=== PATIENT | female | born 1930 | race Caucasian/White ===

== ENCOUNTER 2018-03-08 11:23 | Inpatient (IN) | payer MEDICARE ==
--- NOTE | 2018-03-08 12:07 | RAD ---
CHEST 1 VIEW: HISTORY: Productive cough for 4 days. COMPARISON: 07/30/2016. FINDINGS: Left hemidiaphragm elevation. Left ICD. Mild stable increased linear and interstitial markings bila terally, evidence for chronic change, but no confluent lobar pneumonia. IMPRESSION: Stable left implantable cardioverter defibrillator and left hemidiaphragm elevation and minimal incre ased markings bilaterally. No evidence for pneumonia. POS: [facility]
[2018-03-08 12:18] LABS: #Eosinphils 0.5 thou/uL (0.0-0.7); #Lymphocytes 0.8 thou/uL (1.20-3.40); #Monocytes 0.7 thou/uL (0.11-0.59); #Neutrophils 5.8 thou/uL (1.40-6.50); %Basophils 0.3 % (0.0-1.0); %Eosinophils 6.4 % (0.0-10.0); %Lymphocytes 9.6 % (21.0-51.0); %Monocytes 9.5 % (0.0-10.0); %Neutrophils 74.1 % (42.0-75.0); Hemoglobin 13.7 g/dL (12.0-16.0); Mean Corpuscular HGB CONC 30.6 g/dL (32.0-36.0); Mean Corpuscular Hemoglobin 29.5 pg (27.0-31.0); Mean Corpuscular Volume 96.4 fL (78.0-98.0); Mean Platelet Volume 9.4 fL (7.4-10.4); Platelet Count 171 thou/uL (130-400); RBC Distribution Width 12.9 % (11.5-14.5); Red Blood Cell (RBC) Count 4.65 mill/uL (4.20-5.40); White Blood Cell (WBC) Count 7.8 thou/uL (4.8-10.8)
[2018-03-08] MEDS ORDERED: Magnesium 2 GM/50 ML BAG (IN WATER) ONE (12:26)
[2018-03-08 12:40] LABS: ALT (SGPT) 12 U/L (8-55); AST (SGOT) 23 U/L (5-34); Albumin 4.1 g/dL (3.4-4.8); Alkaline Phosphatase 109 U/L (40-150); Anion Gap 17 mmol/L (10-20); BUN (Urea Nitrogen) 21 mg/dL (9.8-20.1); Bilirubin, Total 0.8 mg/dL (0.2-1.2); Calc. Creatinine Clearance 0 mL/min (70-130); Calcium 9.6 mg/dL (7.8-10.44); Carbon Dioxide 26 mmol/L (23-31); Chloride 100 mmol/L (98-107); Estimated GFR-MDRD 59; Globulin 3.1 g/dL (2.4-3.5); Glucose 120 mg/dL (83-110); Potassium 4.2 mmol/L (3.5-5.1); Protein, Total 7.2 g/dL (6.0-8.3); Sodium 139 mmol/L (136-145)
[2018-03-08] MEDS ORDERED: Cefepime 2 GM VIAL ONE (13:36)
[2018-03-08] MEDS ORDERED: Loperamide HCl 2 MG CAP PO PRN (13:59)
[2018-03-08] MEDS ORDERED: Cepastat Lozenges 1 LOZ PO PRN (13:59)
[2018-03-08] MEDS ORDERED: Bisacodyl 5 MG TAB PO PRN (13:59)
[2018-03-08] MEDS ORDERED: Artificial Tears 18 DROP/0.9 ML EA EYE PRN (13:59)
[2018-03-08] MEDS ORDERED: Loratadine 10 MG TAB PO PRN (13:59)
[2018-03-08] MEDS ORDERED: Diabetic Tussin 200 MG/10 ML UDCUP PO PRN (13:59)
[2018-03-08] MEDS ORDERED: Eucerin (Mineral Oil/Petrolatum,White) 30 gm Jar TOP PRN (13:59)
[2018-03-08] MEDS ORDERED: hydrALAZINE 20 MG/ML VIAL SLOW IVP PRN (13:59)
[2018-03-08] MEDS ORDERED: Calcium Carbonate 500 MG ChewTAB PO PRN (13:59)
[2018-03-08] MEDS ORDERED: Acetaminophen 325 MG TAB PO PRN (13:59)
[2018-03-08] MEDS ORDERED: Senokot S 8.6-50 MG TAB PO PRN (13:59)
[2018-03-08] MEDS ORDERED: Sodium Chloride 0.65% Nasal 44 ML BOT EA NARE PRN (13:59)
[2018-03-08] MEDS ORDERED: Ondansetron ODT 4 MG TAB PO PRN (13:59)
[2018-03-08] MEDS ORDERED: Bisacodyl 10 MG SUPP PR PRN (13:59)
[2018-03-08] MEDS ORDERED: Ondansetron PF 4 MG/2 ML Vial IVP PRN (13:59)
--- NOTE | 2018-03-08 14:52 | HP ---
PRIMARY CARE PHYSICIAN: Dr. Amaya. REASON FOR ADMISSION: Acute respiratory failure with hypoxia, acute bronchitis, acute encephalopathy. HISTORY OF PRESENT ILLNESS: An 87-year-old female who lives at [facility]. She has pretty much underlying history of Alzheimer dementia as well as atrial fibrillation, hypertension. From [facility], she was sent to ER because of increasing shortness of breath. Recently, the patient was prescribed Medrol tablet as well as azithromycin was prescribed there, but without any improvement. She was in respiratory distress. She was hypoxic at [facility]. The patient has increasing shortness of breath for last four days. Paramedics gave her Solu-Medrol 125 mg, five times DuoNeb. Magnesium sulfate was tried in the emergency room, despite that patient is actively wheezing. She is incoherent, unable to provide any history. She has DNR status at [facility] and her medical power of ranger aide Quin Oro. I spoke with her on phone at [phone] and confirmed DNR status. At this point, we are admitting this patient for acute respiratory failure, bronchitis, and encephalopathy. REVIEW OF SYSTEMS: All review of system tried to review with the patient but unable to review at this point because the patient is not in position to provide any history because of dementia as well as encephalopathy. PAST MEDICAL HISTORY: Atrial fibrillation with pacemaker, dyslipidemia, hypertension, Alzheimer dementia, and osteoarthritis. PAST SURGICAL HISTORY: Pacemaker. PAST PSYCHIATRIC HISTORY: Alzheimer type of dementia. SOCIAL HISTORY: The patient is living at [facility]. No history of tobacco, alcohol, or illicit drug abuse. FAMILY HISTORY: Unable to verify any family history from the patient. CURRENT HOME MEDICATIONS: 1. Calcium with vitamin D 1 tablet daily. 2. DuoNeb 4 hourly. 3. Lasix 40 mg daily. 4. Lipitor 10 mg p.o. nightly. 5. Magnesium sulfate 400 mg daily. 6. Medrol 2 mg twice daily. 7. Toprol 25 mg twice daily. 8. Potassium chloride 20 mEq p.o. daily. 9. Azithromycin 250 mg p.o. daily. 10. Xanax as-needed basis. EMERGENCY ROOM COURSE: The patient has received gentamicin, cefepime, vancomycin, DuoNeb therapy, magnesium sulfate 2 g. ALLERGY: No known drug allergy PHYSICAL EXAMINATION: VITAL SIGNS: At this point, blood pressure on admission 102/83, pulse 117, respiratory rate 24, saturation 95% on 3 L oxygen. Weight 84.8 kg. On admission, oxygen saturation was 84% on room air. GENERAL: The patient is completely encephalopathic, actively wheezing, tachycardic. HEENT: Head; normocephalic, atraumatic. Eyes; pupils are round, reactive to light. ENT; oropharynx within normal limits. NECK: Supple. LUNGS: Bilateral wheezing heard. No rales. CARDIAC: S1 and S2 regular. Tachycardia. ABDOMEN: Soft and benign. EXTREMITIES: No edema. NEUROLOGIC: Unable to assess at this point because of her confused status. SKIN: No skin rash. HEMATOLOGICAL: No lymphadenopathy. SIGNIFICANT LABORATORY DATA: EKG showing atrial fibrillation with RVR initially. Chest x-ray, no acute cardiopulmonary process. CBC; WBC 7.8, hemoglobin 13.7, platelet 171. BMP; sodium 139, potassium 4.2, chloride 100, carbon dioxide 26, BUN 21, creatinine 0.91, glucose 120, calcium 9.6. LFT; AST 23, ALT 12, alkaline phosphatase 109, albumin 4.1. Troponin I 0.013. BNP 109.8. ASSESSMENT: 1. Acute respiratory failure with hypoxia. 2. Acute bronchitis/underlying questionable history of chronic obstructive lung disease. 3. History of cardiomyopathy. 4. Hypertension. 5. Dyslipidemia. 6. Alzheimer dementia. 7. Anxiety and depression. 8. Encephalopathy currently with acute on chronic cognitive dysfunction. 9. Chronic atrial fibrillation. 10. Acute bronchitis, likely. PLAN: The patient will be admitted to medical floor. DuoNeb therapy every 4 hourly, Solu-Medrol 40 mg IV q.6 hourly, empiric antibiotic therapy with Rocephin 1 g q.24 hours, levofloxacin 500 mg IV daily, Pulmicort nebulization twice daily, Mucinex 600 mg twice daily. Oxygen to keep saturation above 92%. Watch for any aspiration. Speech evaluation if needed. Code status confirmed with the patient's medical power of ranger aide and DNR status. We will resume [facility] medication and the patient is able to take oral intake. DVT prophylaxis, Lovenox 40 mg subcu daily. GI prophylaxis, Pepcid 20 mg b.i.d. DISPOSITION PLAN: Based on clinical course, we are expecting the patient's stay in hospital more than 2 midnights. Job ID: [id number] [email or web address]
[2018-03-08 18:02] VITALS: BMI 29.5
[2018-03-08] MEDS: Budesonide 0.5 MG/2 ML NEB INH SCH (18:28)
[2018-03-08] MEDS: cefTRIAXone\\ROCEPHIN 1 GM in Sodium Chloride 0.9% 100 ML IVPB SCH (18:57)
[2018-03-08] MEDS: guaiFENesin ER 600 MG TAB PO SCH (20:44)
[2018-03-08] MEDS: Famotidine 20 MG TAB PO SCH (20:44)
[2018-03-08] MEDS: Atorvastatin Calcium 10 MG TAB PO SCH (20:44)
[2018-03-08] MEDS: ALPRAZolam 0.5 MG TAB PO PRN (22:05)
[2018-03-09 04:51] LABS: #Lymphocytes 0.4 thou/uL (1.20-3.40); #Neutrophils 3.8 thou/uL (1.40-6.50); %Eosinophils 0.3 % (0.0-10.0); %Lymphocytes 8.8 % (21.0-51.0); %Neutrophils 89.9 % (42.0-75.0); Hemoglobin 12.3 g/dL (12.0-16.0); Mean Corpuscular HGB CONC 32.5 g/dL (32.0-36.0); Mean Corpuscular Volume 95.3 fL (78.0-98.0); Mean Platelet Volume 9.8 fL (7.4-10.4); Platelet Count 141 thou/uL (130-400); RBC Distribution Width 12.7 % (11.5-14.5); Red Blood Cell (RBC) Count 3.97 mill/uL (4.20-5.40); White Blood Cell (WBC) Count 4.2 thou/uL (4.8-10.8)
[2018-03-09 05:14] LABS: Anion Gap 16 mmol/L (10-20); BUN (Urea Nitrogen) 21 mg/dL (9.8-20.1); Calc. Creatinine Clearance 67 mL/min (70-130); Calcium 8.9 mg/dL (7.8-10.44); Carbon Dioxide 23 mmol/L (23-31); Chloride 102 mmol/L (98-107); Estimated GFR-MDRD 68; Glucose 139 mg/dL (83-110); Potassium 4.2 mmol/L (3.5-5.1); Sodium 137 mmol/L (136-145)
[2018-03-09] MEDS: Budesonide 0.5 MG/2 ML NEB INH SCH ×3 (06:19→18:59)
[2018-03-09] MEDS ORDERED: Atorvastatin Calcium 10 MG TAB PO SCH (09:00)
[2018-03-09] MEDS ORDERED: Prevnar 13-Val Conj/PF 0.5 ML SYRINGE IM ONE (09:00)
[2018-03-09] MEDS: guaiFENesin ER 600 MG TAB PO SCH ×2 (10:20→20:56)
[2018-03-09] MEDS: Aspirin Chewable 81 MG TAB PO SCH (10:20)
[2018-03-09] MEDS: Calcium Carbonate + Vit D 1 TAB PO SCH (10:20)
[2018-03-09] MEDS: Furosemide 40 MG TAB PO SCH (10:20)
[2018-03-09] MEDS: Enoxaparin Sodium 40 MG/0.4 ML SYRINGE SC SCH (10:22)
--- NOTE | 2018-03-09 10:48 | PDOC.PN ---
- Subjective Encounter Start Date: 03/09/18 Encounter Start Time: 07:20 Patient seen and examined. pt has less wheezing. No overnight events - Objective Resuscitation Status - Order Detail: 03/08/18 13:50 Resuscitation Status Routine Resuscitation Status: DNAR: NO Resuscitation Discussed with: coonfirmed with medical POA OSCAR Reviewed: Yes Vital Signs & Weight: Vital Signs (12 hours) Temp Pulse Resp BP BP Pulse Ox 03/09/18 09:57 98 18 97 03/09/18 07:36 97.5 F L 108 H 20 129/55 L 98 03/09/18 06:19 101 H 18 96 03/09/18 04:00 100 03/09/18 03:46 98.1 F 97 19 143/73 H 100 03/09/18 02:09 106 H 20 96 03/09/18 00:00 20 99 Weight Weight 186 lb 8 oz I&O: 03/08/18 03/09/18 03/10/18 06:59 06:59 06:59 Intake Total 351 Output Total 450 Balance -99 Result Diagrams: 03/09/18 04:16 03/09/18 04:16 EKG Reviewed by me: Yes Phys Exam - Physical Examination Constitutional: NAD HEENT: PERRLA, moist MMs, sclera anicteric Neck: no JVD, supple Respiratory: no rales, wheezing present Cardiovascular: RRR, no significant murmur, no rub Gastrointestinal: soft, non-tender, no distention Musculoskeletal: no edema, pulses present Neurological: non-focal Lymphatic: no nodes Psychiatric: normal affect Skin: no rash, normal turgor Dx/Plan (1) Acute bronchitis Code(s): J20.9 - ACUTE BRONCHITIS, UNSPECIFIED Status: Acute (2) Acute respiratory failure with hypoxia Code(s): J96.01 - ACUTE RESPIRATORY FAILURE WITH HYPOXIA Status: Acute (3) Alzheimer's dementia Code(s): G30.9 - ALZHEIMER'S DISEASE, UNSPECIFIED; F02.80 - DEMENTIA IN OTH DISEASES CLASSD ELSWHR W/O BEHAVRL DISTURB Status: Chronic (4) Anxiety and depression Code(s): F41.9 - ANXIETY DISORDER, UNSPECIFIED; F32.9 - MAJOR DEPRESSIVE DISORDER, SINGLE EPISODE, UNSPECIFIED Status: Chronic (5) Dyslipidemia Code(s): E78.5 - HYPERLIPIDEMIA, UNSPECIFIED Status: Chronic (6) Hypertension Code(s): I10 - ESSENTIAL (PRIMARY) HYPERTENSION Status: Chronic - Plan cont current plan of care, continue antibiotics, respiratory therapy * continue rocephin and levaquin * continue solumedrol * pt has some improvement * she is not ready for discharge * will dc tele * transfer to medical * medication reviewed as below * symptomatic treatment. Review of Systems - Review of Systems Other: not reliable due to advanced dementia - Medications/Allergies Allergies/Adverse Reactions: Allergies Allergy/AdvReac Type Severity Reaction Status Date / Time Penicillins Allergy Verified 03/08/18 13:34 Medications: Current Medications Acetaminophen (Tylenol) 650 mg PO Q4H PRN PRN Reason: Headache/Fever/Mild Pain (1-3) Albuterol/Ipratropium (Duoneb) 3 ml NEB [id number] [facility] Last Admin: 03/09/18 09:57 Dose: 3 ml Albuterol/Ipratropium (Duoneb) 3 ml NEB Q2H PRN PRN Reason: SOB &/or Wheezing Alprazolam (Xanax) 0.5 mg PO DAILY PRN PRN Reason: agitation/anxiety Last Admin: 03/08/18 22:05 Dose: 0.5 mg Artificial Tears (Tears Naturale) 2 drop EA EYE PRN PRN PRN Reason: Dry Eyes Aspirin (Aspirin Chewable) 81 mg PO DAILY [facility] Last Admin: 03/09/18 10:20 Dose: 81 mg Atorvastatin Calcium (Lipitor) 10 mg PO HS [facility] Last Admin: 03/08/18 20:44 Dose: 10 mg Bisacodyl (Dulcolax) 10 mg [place] DAILYPRN PRN PRN Reason: Constipation Bisacodyl (Dulcolax) 10 mg PO DAILYPRN PRN PRN Reason: Constipation Budesonide (Pulmicort Neb Solution) 0.5 mg INH BID-RT [facility] Last Admin: 03/09/18 06:19 Dose: 0.5 mg Calcium Carbonate (Tums) 1,000 mg PO Q4H PRN PRN Reason: Heartburn or Indigestion Calcium/Vitamin D (Caltrate 600 + Vit D) 1 tab PO DAILY [facility] Last Admin: 03/09/18 10:20 Dose: 1 tab Enoxaparin Sodium (Lovenox) 40 mg SC 0900 [facility] Last Admin: 03/09/18 10:22 Dose: 40 mg Famotidine (Pepcid) 20 mg PO 2100 [facility] Last Admin: 03/08/18 20:44 Dose: 20 mg Furosemide (Lasix) 40 mg PO DAILY [facility] Last Admin: 03/09/18 10:20 Dose: 40 mg Guaifenesin (Mucinex) 600 mg PO Q12HR [facility] Last Admin: 03/09/18 10:20 Dose: 600 mg Guaifenesin (Robitussin Sf) 200 mg PO Q4H PRN PRN Reason: Cough Hydralazine HCl (Apresoline) 10 mg SLOW IVP Q4H PRN PRN Reason: SBP > 180 and HR < 70 Ceftriaxone Sodium 1 gm/ (Sodium Chloride) 100 mls @ 200 mls/hr IVPB 1500 [facility] Last Admin: 03/08/18 18:57 Dose: 100 mls Levofloxacin 500 mg/ Device 100 mls @ 100 mls/hr IVPB 2100 [facility] Last Admin: 03/08/18 20:44 Dose: 100 mls Loperamide HCl (Imodium) 2 mg PO PRN PRN PRN Reason: Diarrhea/Loose Stools Loratadine (Claritin) 10 mg PO DAILYPRN PRN PRN Reason: Sinus Symptoms Methylprednisolone Sodium Succinate (Solu-Medrol) 40 mg IVP Q6HR [facility] Last Admin: 03/09/18 01:18 Dose: 40 mg Mineral Oil/White Petrolatum (Eucerin Cream) 0 gm TOP BIDPRN PRN PRN Reason: Dry Skin Ondansetron HCl (Zofran Odt) 4 mg PO Q6H PRN PRN Reason: Nausea/Vomiting Ondansetron HCl (Zofran) 4 mg IVP Q6H PRN PRN Reason: Nausea/Vomiting Senna/Docusate Sodium (Senokot S) 2 tab PO BID PRN PRN Reason: Constipation Sodium Chloride ([place] Nasal [place] 0.65%) 0 ml EA NARE QIDPRN PRN PRN Reason: Nasal Congestion Sodium Chloride (Flush - Normal Saline) 10 ml IVF Q12HR [facility] Last Admin: 03/08/18 20:45 Dose: 10 ml Sodium Chloride (Flush - Normal Saline) 10 ml IVF PRN PRN PRN Reason: Saline Flush Last Admin: 01/31/19 01:21 Dose: 10 ml Throat Lozenges (Cepastat Lozenges) 1 ruel PO Q2H PRN PRN Reason: Sore Throat
[2018-03-09] MEDS: cefTRIAXone\\ROCEPHIN 1 GM in Sodium Chloride 0.9% 100 ML IVPB SCH (15:54)
[2018-03-09] MEDS: Famotidine 20 MG TAB PO SCH (20:55)
[2018-03-09] MEDS: ALPRAZolam 0.5 MG TAB PO PRN (20:56)
[2018-03-09] MEDS: Atorvastatin Calcium 10 MG TAB PO SCH (20:56)
[2018-03-10] MEDS: Budesonide 0.5 MG/2 ML NEB INH SCH ×2 (08:08→18:52)
[2018-03-10] MEDS: Furosemide 40 MG TAB PO SCH (09:52)
[2018-03-10] MEDS: guaiFENesin ER 600 MG TAB PO SCH ×2 (09:52→20:42)
[2018-03-10] MEDS: Calcium Carbonate + Vit D 1 TAB PO SCH (09:52)
[2018-03-10] MEDS: Enoxaparin Sodium 40 MG/0.4 ML SYRINGE SC SCH (09:52)
[2018-03-10] MEDS: Aspirin Chewable 81 MG TAB PO SCH (09:55)
--- NOTE | 2018-03-10 11:03 | PDOC.PN ---
- Subjective Encounter Start Date: 03/10/18 Encounter Start Time: 08:30 Patient seen and examined. still wheezing No overnight events - Objective Resuscitation Status - Order Detail: 03/08/18 13:50 Resuscitation Status Routine Resuscitation Status: DNAR: NO Resuscitation Discussed with: coonfirmed with medical PERRI MOORE Reviewed: Yes Vital Signs & Weight: Vital Signs (12 hours) Temp Pulse Resp BP Pulse Ox 03/10/18 08:09 94 L 03/10/18 08:08 95 20 94 L 03/10/18 08:06 95 20 94 L 03/10/18 08:00 99.1 F 114 H 18 127/74 93 L 03/10/18 04:00 98.2 F 104 H 20 131/81 95 03/10/18 02:22 116 H 20 95 03/10/18 01:45 95 03/10/18 01:38 97.8 F 90 16 149/98 H 100 03/10/18 00:00 98.2 F 108 H 20 120/80 95 Weight Weight 186 lb 8 oz I&O: 03/09/18 03/10/18 03/11/18 06:59 06:59 06:59 Intake Total 351 650 Output Total 450 Balance -99 650 Result Diagrams: 03/09/18 04:16 03/09/18 04:16 Phys Exam - Physical Examination Constitutional: NAD HEENT: PERRLA, sclera anicteric Neck: no JVD, supple Respiratory: wheezing present Cardiovascular: RRR, no significant murmur, no rub Gastrointestinal: soft, non-tender, no distention, positive bowel sounds Musculoskeletal: no edema, pulses present Neurological: non-focal Lymphatic: no nodes Psychiatric: normal affect Skin: no rash, normal turgor Dx/Plan (1) Acute bronchitis Code(s): J20.9 - ACUTE BRONCHITIS, UNSPECIFIED Status: Acute (2) Acute respiratory failure with hypoxia Code(s): J96.01 - ACUTE RESPIRATORY FAILURE WITH HYPOXIA Status: Acute (3) Alzheimer's dementia Code(s): G30.9 - ALZHEIMER'S DISEASE, UNSPECIFIED; F02.80 - DEMENTIA IN OTH DISEASES CLASSD ELSWHR W/O BEHAVRL DISTURB Status: Chronic (4) Anxiety and depression Code(s): F41.9 - ANXIETY DISORDER, UNSPECIFIED; F32.9 - MAJOR DEPRESSIVE DISORDER, SINGLE EPISODE, UNSPECIFIED Status: Chronic (5) Dyslipidemia Code(s): E78.5 - HYPERLIPIDEMIA, UNSPECIFIED Status: Chronic (6) Hypertension Code(s): I10 - ESSENTIAL (PRIMARY) HYPERTENSION Status: Chronic - Plan cont current plan of care, continue antibiotics, respiratory therapy * medication reviewed as below * symptomatic treatment * continue current treatment * not ready for discharge * will re evaluate tomorrow. Review of Systems - Review of Systems Other: not reliable with pt due to dementia - Medications/Allergies Allergies/Adverse Reactions: Allergies Allergy/AdvReac Type Severity Reaction Status Date / Time Penicillins Allergy Verified 03/08/18 13:34 Medications: Current Medications Acetaminophen (Tylenol) 650 mg PO Q4H PRN PRN Reason: Headache/Fever/Mild Pain (1-3) Albuterol/Ipratropium (Duoneb) 3 ml NEB [id number] [facility] Last Admin: 03/10/18 08:06 Dose: 3 ml Albuterol/Ipratropium (Duoneb) 3 ml NEB Q2H PRN PRN Reason: SOB &/or Wheezing Alprazolam (Xanax) 0.5 mg PO DAILY PRN PRN Reason: agitation/anxiety Last Admin: 03/09/18 20:56 Dose: 0.5 mg Artificial Tears (Tears Naturale) 2 drop EA EYE PRN PRN PRN Reason: Dry Eyes Aspirin (Aspirin Chewable) 81 mg PO DAILY [facility] Last Admin: 03/10/18 09:55 Dose: 81 mg Atorvastatin Calcium (Lipitor) 10 mg PO HS [facility] Last Admin: 03/09/18 20:56 Dose: 10 mg Bisacodyl (Dulcolax) 10 mg [place] DAILYPRN PRN PRN Reason: Constipation Bisacodyl (Dulcolax) 10 mg PO DAILYPRN PRN PRN Reason: Constipation Budesonide (Pulmicort Neb Solution) 0.5 mg INH BID-RT [facility] Last Admin: 03/10/18 08:08 Dose: 0.5 mg Calcium Carbonate (Tums) 1,000 mg PO Q4H PRN PRN Reason: Heartburn or Indigestion Calcium/Vitamin D (Caltrate 600 + Vit D) 1 tab PO DAILY [facility] Last Admin: 03/10/18 09:52 Dose: 1 tab Enoxaparin Sodium (Lovenox) 40 mg SC 0900 [facility] Last Admin: 03/10/18 09:52 Dose: 40 mg Famotidine (Pepcid) 20 mg PO 2100 [facility] Last Admin: 03/09/18 20:55 Dose: 20 mg Furosemide (Lasix) 40 mg PO DAILY [facility] Last Admin: 03/10/18 09:52 Dose: 40 mg Guaifenesin (Mucinex) 600 mg PO Q12HR [facility] Last Admin: 03/10/18 09:52 Dose: 600 mg Guaifenesin (Robitussin Sf) 200 mg PO Q4H PRN PRN Reason: Cough Hydralazine HCl (Apresoline) 10 mg SLOW IVP Q4H PRN PRN Reason: SBP > 180 and HR < 70 Ceftriaxone Sodium 1 gm/ (Sodium Chloride) 100 mls @ 200 mls/hr IVPB 1500 [facility] Last Admin: 03/09/18 15:54 Dose: 100 mls Levofloxacin 500 mg/ Device 100 mls @ 100 mls/hr IVPB 2100 [facility] Last Admin: 03/09/18 20:56 Dose: 100 mls Loperamide HCl (Imodium) 2 mg PO PRN PRN PRN Reason: Diarrhea/Loose Stools Loratadine (Claritin) 10 mg PO DAILYPRN PRN PRN Reason: Sinus Symptoms Methylprednisolone Sodium Succinate (Solu-Medrol) 40 mg IVP Q6HR [facility] Last Admin: 03/10/18 05:26 Dose: 40 mg Mineral Oil/White Petrolatum (Eucerin Cream) 0 gm TOP BIDPRN PRN PRN Reason: Dry Skin Ondansetron HCl (Zofran Odt) 4 mg PO Q6H PRN PRN Reason: Nausea/Vomiting Ondansetron HCl (Zofran) 4 mg IVP Q6H PRN PRN Reason: Nausea/Vomiting Senna/Docusate Sodium (Senokot S) 2 tab PO BID PRN PRN Reason: Constipation Sodium Chloride ([place] Nasal [place] 0.65%) 0 ml EA NARE QIDPRN PRN PRN Reason: Nasal Congestion Sodium Chloride (Flush - Normal Saline) 10 ml IVF Q12HR [facility] Last Admin: 03/10/18 09:53 Dose: 10 ml Sodium Chloride (Flush - Normal Saline) 10 ml IVF PRN PRN PRN Reason: Saline Flush Last Admin: 03/09/18 01:21 Dose: 10 ml Throat Lozenges (Cepastat Lozenges) 1 ruel PO Q2H PRN PRN Reason: Sore Throat
[2018-03-10] MEDS: cefTRIAXone\\ROCEPHIN 1 GM in Sodium Chloride 0.9% 100 ML IVPB SCH (14:34)
[2018-03-10] MEDS ORDERED: Ziprasidone 20 MG VIAL IM SCH (16:00)
[2018-03-10] MEDS ORDERED: Sterile Water 10 ML ONE (16:03)
[2018-03-10] MEDS: Atorvastatin Calcium 10 MG TAB PO SCH (20:41)
[2018-03-10] MEDS: Famotidine 20 MG TAB PO SCH (20:41)
[2018-03-10] MEDS: ALPRAZolam 0.5 MG TAB PO PRN (20:41)
[2018-03-11] MEDS: Budesonide 0.5 MG/2 ML NEB INH SCH ×2 (08:01→19:01)
[2018-03-11] MEDS: Furosemide 40 MG TAB PO SCH (08:22)
[2018-03-11] MEDS: guaiFENesin ER 600 MG TAB PO SCH ×2 (08:22→20:25)
[2018-03-11] MEDS: Calcium Carbonate + Vit D 1 TAB PO SCH (08:22)
[2018-03-11] MEDS: Enoxaparin Sodium 40 MG/0.4 ML SYRINGE SC SCH (08:23)
[2018-03-11] MEDS: Aspirin Chewable 81 MG TAB PO SCH (08:23)
[2018-03-11] MEDS: ALPRAZolam 0.5 MG TAB PO PRN (08:27)
--- NOTE | 2018-03-11 11:56 | PDOC.PN ---
- Subjective Encounter Start Date: 03/11/18 Encounter Start Time: 09:35 Patient seen and examined. No new complaints. No overnight events - Objective Resuscitation Status - Order Detail: 03/08/18 13:50 Resuscitation Status Routine Resuscitation Status: DNAR: NO Resuscitation Discussed with: coonfirmed with medical PERRI MOORE Reviewed: Yes Vital Signs & Weight: Vital Signs (12 hours) Temp Pulse Resp BP Pulse Ox 03/11/18 08:36 98.1 F 106 H 20 120/76 92 L 03/11/18 08:01 86 18 94 L 03/11/18 04:00 97.7 F 86 18 113/60 94 L 03/11/18 01:52 96 18 94 L Weight Weight 186 lb 8 oz I&O: 03/10/18 03/11/18 03/12/18 06:59 06:59 06:59 Intake Total 650 400 Balance 650 400 Result Diagrams: 03/09/18 04:16 03/09/18 04:16 Phys Exam - Physical Examination Constitutional: NAD HEENT: PERRLA, moist MMs, sclera anicteric Neck: no JVD, supple Respiratory: no wheezing, no rales, no rhonchi Cardiovascular: RRR, no significant murmur, no rub Gastrointestinal: soft, non-tender, no distention, positive bowel sounds Musculoskeletal: no edema, pulses present Neurological: non-focal Lymphatic: no nodes Psychiatric: normal affect Skin: no rash, normal turgor Dx/Plan (1) Acute bronchitis Code(s): J20.9 - ACUTE BRONCHITIS, UNSPECIFIED Status: Acute (2) Acute respiratory failure with hypoxia Code(s): J96.01 - ACUTE RESPIRATORY FAILURE WITH HYPOXIA Status: Acute (3) Alzheimer's dementia Code(s): G30.9 - ALZHEIMER'S DISEASE, UNSPECIFIED; F02.80 - DEMENTIA IN OTH DISEASES CLASSD ELSWHR W/O BEHAVRL DISTURB Status: Chronic (4) Anxiety and depression Code(s): F41.9 - ANXIETY DISORDER, UNSPECIFIED; F32.9 - MAJOR DEPRESSIVE DISORDER, SINGLE EPISODE, UNSPECIFIED Status: Chronic (5) Dyslipidemia Code(s): E78.5 - HYPERLIPIDEMIA, UNSPECIFIED Status: Chronic (6) Hypertension Code(s): I10 - ESSENTIAL (PRIMARY) HYPERTENSION Status: Chronic - Plan cont current plan of care, continue antibiotics, respiratory therapy * medication reviewed as below * symptomatic treatment * continue current treatment * she should be ready for discharge tomorrow. Review of Systems - Review of Systems Other: not reliable due to dementia - Medications/Allergies Allergies/Adverse Reactions: Allergies Allergy/AdvReac Type Severity Reaction Status Date / Time Penicillins Allergy Verified 03/08/18 13:34 Medications: Current Medications Acetaminophen (Tylenol) 650 mg PO Q4H PRN PRN Reason: Headache/Fever/Mild Pain (1-3) Last Admin: 03/10/18 20:42 Dose: 650 mg Albuterol/Ipratropium (Duoneb) 3 ml NEB [id number] [facility] Last Admin: 03/11/18 08:03 Dose: 3 ml Albuterol/Ipratropium (Duoneb) 3 ml NEB Q2H PRN PRN Reason: SOB &/or Wheezing Alprazolam (Xanax) 0.5 mg PO DAILY PRN PRN Reason: agitation/anxiety Last Admin: 03/11/18 08:27 Dose: 0.5 mg Artificial Tears (Tears Naturale) 2 drop EA EYE PRN PRN PRN Reason: Dry Eyes Aspirin (Aspirin Chewable) 81 mg PO DAILY [facility] Last Admin: 03/11/18 08:23 Dose: 81 mg Atorvastatin Calcium (Lipitor) 10 mg PO HS [facility] Last Admin: 03/10/18 20:41 Dose: 10 mg Bisacodyl (Dulcolax) 10 mg [place] DAILYPRN PRN PRN Reason: Constipation Bisacodyl (Dulcolax) 10 mg PO DAILYPRN PRN PRN Reason: Constipation Budesonide (Pulmicort Neb Solution) 0.5 mg INH BID-RT [facility] Last Admin: 03/11/18 08:01 Dose: 0.5 mg Calcium Carbonate (Tums) 1,000 mg PO Q4H PRN PRN Reason: Heartburn or Indigestion Calcium/Vitamin D (Caltrate 600 + Vit D) 1 tab PO DAILY [facility] Last Admin: 03/11/18 08:22 Dose: 1 tab Enoxaparin Sodium (Lovenox) 40 mg SC 0900 [facility] Last Admin: 03/11/18 08:23 Dose: 40 mg Famotidine (Pepcid) 20 mg PO 2100 [facility] Last Admin: 03/10/18 20:41 Dose: 20 mg Furosemide (Lasix) 40 mg PO DAILY [facility] Last Admin: 03/11/18 08:22 Dose: 40 mg Guaifenesin (Mucinex) 600 mg PO Q12HR [facility] Last Admin: 03/11/18 08:22 Dose: 600 mg Guaifenesin (Robitussin Sf) 200 mg PO Q4H PRN PRN Reason: Cough Hydralazine HCl (Apresoline) 10 mg SLOW IVP Q4H PRN PRN Reason: SBP > 180 and HR < 70 Ceftriaxone Sodium 1 gm/ (Sodium Chloride) 100 mls @ 200 mls/hr IVPB 1500 [facility] Last Admin: 03/10/18 14:34 Dose: 100 mls Levofloxacin 500 mg/ Device 100 mls @ 100 mls/hr IVPB 2100 [facility] Last Admin: 03/10/18 20:42 Dose: 100 mls Loperamide HCl (Imodium) 2 mg PO PRN PRN PRN Reason: Diarrhea/Loose Stools Loratadine (Claritin) 10 mg PO DAILYPRN PRN PRN Reason: Sinus Symptoms Methylprednisolone Sodium Succinate (Solu-Medrol) 40 mg IVP Q6HR [facility] Last Admin: 03/11/18 05:32 Dose: 40 mg Mineral Oil/White Petrolatum (Eucerin Cream) 0 gm TOP BIDPRN PRN PRN Reason: Dry Skin Ondansetron HCl (Zofran Odt) 4 mg PO Q6H PRN PRN Reason: Nausea/Vomiting Ondansetron HCl (Zofran) 4 mg IVP Q6H PRN PRN Reason: Nausea/Vomiting Senna/Docusate Sodium (Senokot S) 2 tab PO BID PRN PRN Reason: Constipation Sodium Chloride ([place] Nasal [place] 0.65%) 0 ml EA NARE QIDPRN PRN PRN Reason: Nasal Congestion Sodium Chloride (Flush - Normal Saline) 10 ml IVF Q12HR [facility] Last Admin: 03/11/18 08:23 Dose: 10 ml Sodium Chloride (Flush - Normal Saline) 10 ml IVF PRN PRN PRN Reason: Saline Flush Last Admin: 03/09/18 01:21 Dose: 10 ml Throat Lozenges (Cepastat Lozenges) 1 ruel PO Q2H PRN PRN Reason: Sore Throat
[2018-03-11] MEDS: cefTRIAXone\\ROCEPHIN 1 GM in Sodium Chloride 0.9% 100 ML IVPB SCH (14:37)
[2018-03-11] MEDS: Atorvastatin Calcium 10 MG TAB PO SCH (20:25)
[2018-03-11] MEDS: Famotidine 20 MG TAB PO SCH (20:25)
[2018-03-12] MEDS ORDERED: ALPRAZolam 0.25 MG TAB PO SCH (01:00)
[2018-03-12] MEDS: guaiFENesin ER 600 MG TAB PO SCH ×2 (07:39→21:31)
[2018-03-12] MEDS: Enoxaparin Sodium 40 MG/0.4 ML SYRINGE SC SCH (07:39)
[2018-03-12] MEDS: Furosemide 40 MG TAB PO SCH (07:39)
[2018-03-12] MEDS: Calcium Carbonate + Vit D 1 TAB PO SCH (07:39)
[2018-03-12] MEDS: Aspirin Chewable 81 MG TAB PO SCH (07:39)
[2018-03-12] MEDS: Budesonide 0.5 MG/2 ML NEB INH SCH ×2 (07:51→18:24)
--- NOTE | 2018-03-12 11:11 | PDOC.PN ---
- Subjective Encounter Start Date: 03/12/18 Encounter Start Time: 09:25 Patient seen and examined. No new complaints. No overnight events - Objective Resuscitation Status - Order Detail: 03/08/18 13:50 Resuscitation Status Routine Resuscitation Status: DNAR: NO Resuscitation Discussed with: coonfirmed with medical POJose MOORE Reviewed: Yes Vital Signs & Weight: Vital Signs (12 hours) Temp Pulse Resp BP Pulse Ox 03/12/18 07:52 93 L 03/12/18 07:51 101 H 20 93 L 03/12/18 07:49 101 H 20 93 L 03/12/18 07:27 97.7 F 91 20 128/77 92 L 03/12/18 01:43 119 H 20 96 Weight Weight 186 lb 8 oz I&O: 03/11/18 03/12/18 03/13/18 06:59 06:59 06:59 Intake Total 400 150 Balance 400 150 Result Diagrams: 03/09/18 04:16 03/09/18 04:16 Phys Exam - Physical Examination Constitutional: NAD HEENT: PERRLA, moist MMs, sclera anicteric Neck: no JVD, supple Respiratory: wheezing present Cardiovascular: RRR, no significant murmur, no rub Gastrointestinal: soft, non-tender, no distention, positive bowel sounds Musculoskeletal: no edema, pulses present Neurological: non-focal, normal sensation Lymphatic: no nodes Psychiatric: normal affect Skin: no rash, normal turgor Dx/Plan (1) Acute bronchitis Code(s): J20.9 - ACUTE BRONCHITIS, UNSPECIFIED Status: Acute (2) Acute respiratory failure with hypoxia Code(s): J96.01 - ACUTE RESPIRATORY FAILURE WITH HYPOXIA Status: Acute (3) Alzheimer's dementia Code(s): G30.9 - ALZHEIMER'S DISEASE, UNSPECIFIED; F02.80 - DEMENTIA IN OTH DISEASES CLASSD ELSWHR W/O BEHAVRL DISTURB Status: Chronic (4) Anxiety and depression Code(s): F41.9 - ANXIETY DISORDER, UNSPECIFIED; F32.9 - MAJOR DEPRESSIVE DISORDER, SINGLE EPISODE, UNSPECIFIED Status: Chronic (5) Dyslipidemia Code(s): E78.5 - HYPERLIPIDEMIA, UNSPECIFIED Status: Chronic (6) Hypertension Code(s): I10 - ESSENTIAL (PRIMARY) HYPERTENSION Status: Chronic - Plan cont current plan of care, continue antibiotics, respiratory therapy * medication reviewed as below * symptomatic treatment * continue respi therapy as per below. Review of Systems - Review of Systems Other: not reliable due to dementia - Medications/Allergies Allergies/Adverse Reactions: Allergies Allergy/AdvReac Type Severity Reaction Status Date / Time Penicillins Allergy Verified 03/08/18 13:34 Medications: Current Medications Acetaminophen (Tylenol) 650 mg PO Q4H PRN PRN Reason: Headache/Fever/Mild Pain (1-3) Last Admin: 03/10/18 20:42 Dose: 650 mg Albuterol/Ipratropium (Duoneb) 3 ml NEB [id number] [facility] Last Admin: 03/12/18 07:49 Dose: 3 ml Albuterol/Ipratropium (Duoneb) 3 ml NEB Q2H PRN PRN Reason: SOB &/or Wheezing Alprazolam (Xanax) 0.5 mg PO DAILY PRN PRN Reason: agitation/anxiety Last Admin: 03/11/18 08:27 Dose: 0.5 mg Artificial Tears (Tears Naturale) 2 drop EA EYE PRN PRN PRN Reason: Dry Eyes Aspirin (Aspirin Chewable) 81 mg PO DAILY [facility] Last Admin: 03/12/18 07:39 Dose: 81 mg Atorvastatin Calcium (Lipitor) 10 mg PO HS [facility] Last Admin: 03/11/18 20:25 Dose: 10 mg Bisacodyl (Dulcolax) 10 mg MT DAILYPRN PRN PRN Reason: Constipation Bisacodyl (Dulcolax) 10 mg PO DAILYPRN PRN PRN Reason: Constipation Budesonide (Pulmicort Neb Solution) 0.5 mg INH BID-RT [facility] Last Admin: 03/12/18 07:51 Dose: 0.5 mg Calcium Carbonate (Tums) 1,000 mg PO Q4H PRN PRN Reason: Heartburn or Indigestion Calcium/Vitamin D (Caltrate 600 + Vit D) 1 tab PO DAILY [facility] Last Admin: 03/12/18 07:39 Dose: 1 tab Enoxaparin Sodium (Lovenox) 40 mg SC 0900 [facility] Last Admin: 03/12/18 07:39 Dose: 40 mg Famotidine (Pepcid) 20 mg PO 2100 [facility] Last Admin: 03/11/18 20:25 Dose: 20 mg Furosemide (Lasix) 40 mg PO DAILY [facility] Last Admin: 03/12/18 07:39 Dose: 40 mg Guaifenesin (Mucinex) 600 mg PO Q12HR [facility] Last Admin: 03/12/18 07:39 Dose: 600 mg Guaifenesin (Robitussin Sf) 200 mg PO Q4H PRN PRN Reason: Cough Hydralazine HCl (Apresoline) 10 mg SLOW IVP Q4H PRN PRN Reason: SBP > 180 and HR < 70 Ceftriaxone Sodium 1 gm/ (Sodium Chloride) 100 mls @ 200 mls/hr IVPB 1500 [facility] Last Admin: 03/11/18 14:37 Dose: 100 mls Levofloxacin (Levaquin) 500 mg PO 2100 [facility] Last Admin: 03/11/18 20:25 Dose: 500 mg Loperamide HCl (Imodium) 2 mg PO PRN PRN PRN Reason: Diarrhea/Loose Stools Loratadine (Claritin) 10 mg PO DAILYPRN PRN PRN Reason: Sinus Symptoms Methylprednisolone Sodium Succinate (Solu-Medrol) 40 mg IVP Q6HR [facility] Last Admin: 03/12/18 06:53 Dose: 40 mg Mineral Oil/White Petrolatum (Eucerin Cream) 0 gm TOP BIDPRN PRN PRN Reason: Dry Skin Ondansetron HCl (Zofran Odt) 4 mg PO Q6H PRN PRN Reason: Nausea/Vomiting Ondansetron HCl (Zofran) 4 mg IVP Q6H PRN PRN Reason: Nausea/Vomiting Senna/Docusate Sodium (Senokot S) 2 tab PO BID PRN PRN Reason: Constipation Sodium Chloride ([place] Nasal [place] 0.65%) 0 ml EA NARE QIDPRN PRN PRN Reason: Nasal Congestion Sodium Chloride (Flush - Normal Saline) 10 ml IVF Q12HR [facility] Last Admin: 03/12/18 07:40 Dose: 10 ml Sodium Chloride (Flush - Normal Saline) 10 ml IVF PRN PRN PRN Reason: Saline Flush Last Admin: 03/09/18 01:21 Dose: 10 ml Throat Lozenges (Cepastat Lozenges) 1 ruel PO Q2H PRN PRN Reason: Sore Throat
[2018-03-12] MEDS: ALPRAZolam 0.5 MG TAB PO PRN (12:25)
[2018-03-12] MEDS: cefTRIAXone\\ROCEPHIN 1 GM in Sodium Chloride 0.9% 100 ML IVPB SCH (15:14)
[2018-03-12] MEDS: Famotidine 20 MG TAB PO SCH (21:31)
[2018-03-12] MEDS: Atorvastatin Calcium 10 MG TAB PO SCH (21:31)
[2018-03-13] MEDS: Budesonide 0.5 MG/2 ML NEB INH SCH (06:34)
[2018-03-13] MEDS: Enoxaparin Sodium 40 MG/0.4 ML SYRINGE SC SCH (08:10)
[2018-03-13] MEDS: guaiFENesin ER 600 MG TAB PO SCH (08:11)
[2018-03-13] MEDS: Aspirin Chewable 81 MG TAB PO SCH (08:11)
[2018-03-13] MEDS: Calcium Carbonate + Vit D 1 TAB PO SCH (08:11)
[2018-03-13] MEDS: Furosemide 40 MG TAB PO SCH (08:11)
--- NOTE | 2018-03-13 11:18 | DIS ---
DATE OF ADMISSION: 03/08/2018 DATE OF DISCHARGE: 03/13/2018 PRIMARY CARE PHYSICIAN: Dr. Amaya. DISCHARGE DISPOSITION: [facility]. PRIMARY DISCHARGE DIAGNOSES: 1. Acute respiratory failure with hypoxia, resolved. 2. Acute bronchitis, improving. SECONDARY DISCHARGE DIAGNOSES: Hypertension, dyslipidemia, anxiety, depression, Alzheimer's, and dementia. PRIMARY PROCEDURE/OPERATION: None. RADIOLOGICAL INVESTIGATION: Chest x-ray on admission showed no acute cardiopulmonary process. Echocardiography showed EF 50% to 55%, moderate tricuspid regurgitation. SIGNIFICANT LABORATORY DATA: WBC 4.2, hemoglobin 12.3, and platelet 141. Sodium 137, potassium 4.2, BUN 21, creatinine 0.80, and calcium 8.9. LFT normal. DISCHARGE MEDICATIONS: 1. Zofran 4 mg q.6 hourly p.r.n. 2. Tylenol 650 mg q.6 hourly p.r.n. 3. Xanax 0.5 mg daily. 4. Lipitor 10 mg daily. 5. Calcium with vitamin D 1 tablet daily. 6. Lasix 40 mg daily. 7. Robitussin DM 10 mL q.6 hourly p.r.n. 8. DuoNeb q.4 hourly. 9. Magnesium 400 mg daily. 10. Lopressor 12.5 mg b.i.d. 11. Potassium chloride 20 mEq p.o. daily. 12. Mucinex 600 mg twice daily for 5 days. 13. Pulmicort nebulization twice daily. 14. Levaquin 500 mg p.o. daily for 5 days. 15. Medrol 2 mg p.o. b.i.d. for 5 days. CONTRAINDICATION: None. CODE STATUS: DNR. INPATIENT SUPERVISOR HYDROCHLORIC AREA: None. ALLERGIES: PENICILLIN. DISCHARGE PLAN: Posthospital, the patient will follow up with primary care physician at senior living. HOSPITAL COURSE: An 87-year-old female who lives at [facility]. Over there, the patient was hypoxic and she was in respiratory distress, that is why she was sent to emergency room for evaluation. The patient was admitted by me. Please see my HPI for further details. On admission in the emergency room, she was requiring oxygen. She was hypoxic and she was treated with broad-spectrum antibiotic therapy. Her chest x-ray was unremarkable. She was having acute bronchitis and her acute respiratory failure was related with acute bronchitis. The patient had respiratory virus panel, which showed virus positive for influenza negative. Her blood cultures remain negative. While in hospital, we treated her with DuoNeb, Pulmicort, Solu-Medrol, empiric antibiotic therapy with Levaquin. This patient was recently started on azithromycin and Medrol over there at senior living, but she did not have any improvement. While in hospital she remained confused. She is baseline demented. I have seen and examined this patient today. PHYSICAL EXAMINATION: VITAL SIGNS: Currently, temperature 97.1, pulse 94, respiratory rate 20, saturation 95% on 2 L oxygen, and blood pressure 154/88. Weight 186 pounds. GENERAL: The patient is currently alert, awake, follows simple commands, no obvious acute distress. LUNGS: Clear to auscultation without any rhonchi or rales. CARDIAC: S1 and S2 appears regular without any murmur. ABDOMEN: Soft and benign. EXTREMITIES: No edema. REVIEW OF SYSTEMS: Unable to review with the patient because of altered mental status. While in the hospital, the course status was confirmed DNR with the patient's medical power of test development engineer. Paperwork for discharge done and discharge medication reconciliation done. Total time spent on discharge day, 31 minutes. Job ID: [id number]
[2018-03-13 11:20] VITALS: BP 93/54; TEMP 97.6
== END 2018-03-13 12:07 | DRG 189 ==
LOC: ERS 11:23 → 2NO 14:00 → T4-B 03-09 20:06
PROVIDERS: ADMIT Internal Medicine; ATTEND Internal Medicine
DX: J96.01 Acute respiratory failure with hypoxia (principal); G93.40 Encephalopathy, unspecified; I42.9 Cardiomyopathy, unspecified; I48.91 Unspecified atrial fibrillation; J20.9 Acute bronchitis, unspecified; I48.2 Chronic atrial fibrillation; Z66 Do not resuscitate; I10 Essential (primary) hypertension; G30.9 Alzheimer's disease, unspecified; F02.80 Dementia in other diseases classified elsewhere, unspecified severity, without behavioral disturbance, psychotic disturbance, mood disturbance, and anxiety; Z95.0 Presence of cardiac pacemaker; E78.5 Hyperlipidemia, unspecified; M19.90 Unspecified osteoarthritis, unspecified site; F41.8 Other specified anxiety disorders
CPT/HCPCS: 36415; 71045; 80048; 80053; 83605; 83880; 84484; 85025; 87040; 87633; 87804; 90471; 90670; 93005; 93306; 94640; 96365; 96367; A4216; G0009; J0692; J0696; J1580; J1650; J1956; J2920; J3370; J3475; J3486; J7050; J7620; J7626

== ENCOUNTER 2018-04-07 22:46 | Emergency (ER) | payer MEDICARE ==
[2018-04-08 01:15] LABS: #Eosinphils 0.4 thou/uL (0.0-0.7); #Lymphocytes 1.1 thou/uL (1.20-3.40); #Monocytes 0.7 thou/uL (0.11-0.59); #Neutrophils 2.9 thou/uL (1.40-6.50); %Basophils 0.5 % (0.0-1.0); %Eosinophils 7.1 % (0.0-10.0); %Lymphocytes 21.9 % (21.0-51.0); %Monocytes 13.6 % (0.0-10.0); %Neutrophils 56.9 % (42.0-75.0); Hemoglobin 14.4 g/dL (12.0-16.0); Mean Corpuscular HGB CONC 31.2 g/dL (32.0-36.0); Mean Corpuscular Volume 99.3 fL (78.0-98.0); Platelet Count 225 thou/uL (130-400); Red Blood Cell (RBC) Count 4.66 mill/uL (4.20-5.40); White Blood Cell (WBC) Count 5.1 thou/uL (4.8-10.8)
[2018-04-08 01:37] LABS: ALT (SGPT) 11 U/L (8-55); AST (SGOT) 20 U/L (5-34); Alkaline Phosphatase 101 U/L (40-150); Anion Gap 11 mmol/L (10-20); BUN (Urea Nitrogen) 24 mg/dL (9.8-20.1); Bilirubin, Total 0.6 mg/dL (0.2-1.2); Calc. Creatinine Clearance 0 mL/min (70-130); Calcium 10.2 mg/dL (7.8-10.44); Carbon Dioxide 30 mmol/L (23-31); Chloride 104 mmol/L (98-107); Estimated GFR-MDRD 64; Globulin 3.4 g/dL (2.4-3.5); Glucose 85 mg/dL (83-110); Potassium 4.3 mmol/L (3.5-5.1); Protein, Total 7.4 g/dL (6.0-8.3); Sodium 141 mmol/L (136-145)
[2018-04-08] MEDS ORDERED: Furosemide 40 MG TAB ONE (02:02)
[2018-04-08] MEDS ORDERED: Cephalexin 250 MG CAP ONE (02:02)
[2018-04-08] MEDS ORDERED: Sulfameth/Trimethoprim DS 800-160mg TAB ONE (02:02)
--- NOTE | 2018-04-08 08:19 | ULT ---
PRELIMINARY REPORT/[facility]/EMERGENTY AFTER-HOURS PROCEDURE US Duplex Left Lower Extremity Veins, Limited EXAM DATE/TIME: 04/08/2018 1:02 AM CLINICAL HISTORY: 87 years old, female; Signs and symptoms; Other: Increased swelling, redness to lle TECHNIQUE: Real-time Duplex ultrasound of the Left Lower Extremity with 2-D madden scale, color Doppler flow and s pectral waveform analysis. Limited exam focused on the left lower extremity veins. COMPARISON: No relevant prior studies available. FINDINGS: No visible clot in the included veins. The included veins appear normally compressible. Duplex Doppler evaluation demonstrates flow in the evaluated veins. Two relatively simple appearing fluid collections in the left popliteal region. The more proximal are a measures 29 x 17 x 18 mm. The more distal area measures 54 x 16 x 28 mm. These likely represent Bowens's/popliteal cysts, other etiologies not excluded. IMPRESSION: 1. No evidence of acute left lower extremity DVT. 2. Two relatively simple appearing fluid collections in the left popliteal region details above. Thank you for allowing us to participate in the care of your patient. Dictated and Authenticated by: Gilles Vasquez MD 04/08/2018 2:49 AM Central Time ([place] & [place]) FINAL REPORT VENOUS DUPLEX SONOGRAM LEFT LOWER EXTREMITY: Date: 04-08-18 Performed on emergency basis at 0103 hours. History: Left leg pain and edema. FINDINGS: I agree with the preliminary report by Dr. Scott from [facility]. Good color and spectral dop pler flow and compression. No evidence of DVT left lower extremity. Large cysts at the popliteal hector a may represent a bilobed bowens cyst. Code QA POS: [facility]
--- NOTE | 2018-04-08 08:42 | RAD ---
CHEST 1 VIEW: Date: 04/08/18 HISTORY: Chest pain. Swelling. COMPARISON: 03/08/18. FINDINGS: Cardiac silhouette is magnified and partially obscured by markedly elevated left hemidiaphragm, simil ar in appearance to the prior study. Pulmonary vasculature upper limits of normal. Mediastinum is mid line with aortic calcification and a dual lead left subclavian cardiac pacer. No lobar consolidation or evidence of pneumothorax. IMPRESSION: 1. Atherosclerosis. 2. Chronic-type findings are stable. POS: [facility]
== END 2018-04-08 02:58 | disposition home or self-care (01) ==
LOC: ERS 22:46
DX: I87.8 Other specified disorders of veins (principal); I48.91 Unspecified atrial fibrillation; E78.5 Hyperlipidemia, unspecified; I10 Essential (primary) hypertension; G30.9 Alzheimer's disease, unspecified; F02.80 Dementia in other diseases classified elsewhere, unspecified severity, without behavioral disturbance, psychotic disturbance, mood disturbance, and anxiety
CPT/HCPCS: 36415; 71045; 80053; 83880; 84484; 85025; 93005; 94640; J7620

== ENCOUNTER 2018-07-21 18:06 | Inpatient (IN) | payer MEDICARE ==
[2018-07-21 18:31] LABS: #Eosinphils 0.5 thou/uL (0.0-0.7); #Lymphocytes 1.4 thou/uL (1.20-3.40); #Monocytes 0.8 thou/uL (0.11-0.59); %Basophils 0.6 % (0.0-1.0); %Eosinophils 6.8 % (0.0-10.0); %Lymphocytes 20.3 % (21.0-51.0); %Monocytes 12.6 % (0.0-10.0); %Neutrophils 59.6 % (42.0-75.0); Mean Corpuscular HGB CONC 31.6 g/dL (32.0-36.0); Mean Corpuscular Hemoglobin 30.5 pg (27.0-31.0); Mean Corpuscular Volume 96.3 fL (78.0-98.0); Mean Platelet Volume 9.3 fL (7.4-10.4); Platelet Count 159 thou/uL (130-400); RBC Distribution Width 12.9 % (11.5-14.5); Red Blood Cell (RBC) Count 4.28 mill/uL (4.20-5.40); White Blood Cell (WBC) Count 6.6 thou/uL (4.8-10.8)
--- NOTE | 2018-07-21 18:41 | RAD ---
AP CHEST: 07/21/18 HISTORY: Dyspnea. COMPARISON: 04/08/18. Elevated left hemidiaphragm is stable. Lungs appear clear of infiltrate. Heart size upper normal. Pac emaker leads unchanged. Vasculature normal. IMPRESSION: No acute finding or interval change. POS: [facility]
[2018-07-21] MEDS ORDERED: Diltiazem 125 MG/25 ML ONE (18:50)
[2018-07-21 18:55] LABS: ALT (SGPT) 14 U/L (8-55); AST (SGOT) 23 U/L (5-34); Albumin 4.2 g/dL (3.4-4.8); Alkaline Phosphatase 103 U/L (40-150); Anion Gap 15 mmol/L (10-20); BUN (Urea Nitrogen) 22 mg/dL (9.8-20.1); Bilirubin, Total 0.4 mg/dL (0.2-1.2); CK (CPK) 66 U/L (29-168); Calc. Creatinine Clearance 0 mL/min (70-130); Calcium 9.4 mg/dL (7.8-10.44); Carbon Dioxide 26 mmol/L (23-31); Chloride 105 mmol/L (98-107); Estimated GFR-MDRD 64; Globulin 2.6 g/dL (2.4-3.5); Glucose 117 mg/dL (83-110); Potassium 4.7 mmol/L (3.5-5.1); Protein, Total 6.8 g/dL (6.0-8.3); Sodium 141 mmol/L (136-145)
[2018-07-21] MEDS ORDERED: Diltiazem 125 MG in Sodium Chloride 0.9% 100 ML IVPB SCH (19:00)
[2018-07-21 19:16] LABS: Bilirubin Negative (Negative); Blood, Urine Small (Negative); Clarity CLOUDY (Clear); Glucose, Urine (Dipstick) Negative (Negative); Leukocyte Small (Negative); Nitrite Negative (Negative); Protein, Urine (Dipstick) Negative (Neg-Trace); Specific Gravity, Urine 1.009 (1.002-1.036); Urobilinogen 0.2 mg/dL (0.2-1.0); pH, Urine 5.5 (5.0-9.0)
[2018-07-21] MEDS ORDERED: cefTRIAXone\\ROCEPHIN 2 GM VIAL ONE (19:17)
[2018-07-21] MEDS ORDERED: Azithromycin 500 MG VIAL ONE (19:17)
[2018-07-21 19:19] LABS: Bacteria/HPF 1+ HPF (None Seen); Hyaline Casts/LPF 0-3 HYALINE CAST LPF (0-3 Hyaline); Pathc Cast-AUWi Flag 0.27 (0-2.49); RBC/HPF 0-3 HPF (0-3); Squamous Epithelial 0-3 HPF (0-3)
[2018-07-21 19:28] LABS: Transitional Epithelial 0-3 HPF (0-3)
[2018-07-21 20:36] LABS: Troponin I Less than 0.010 ng/mL (< 0.028)
[2018-07-21 22:29] LABS: Lactic Acid 1.8 mmol/L (0.5-2.2)
[2018-07-21 22:37] LABS: Troponin I Less than 0.010 ng/mL (< 0.028)
[2018-07-21 23:01] VITALS: BMI 32.5
[2018-07-22] MEDS ORDERED: ALPRAZolam 0.25 MG TAB PO SCH (00:15)
[2018-07-22] MEDS ORDERED: Haloperidol Lactate 5 MG/ML VIAL IM SCH (01:15)
[2018-07-22] MEDS ORDERED: Acetaminophen 325 MG TAB PO PRN ×2 (02:25→02:43)
[2018-07-22] MEDS ORDERED: Bisacodyl 5 MG TAB PO PRN (02:25)
[2018-07-22] MEDS ORDERED: Diabetic Tussin DM 5 ML UDCUP PO PRN (02:43)
[2018-07-22] MEDS ORDERED: Ondansetron ODT 4 MG TAB PO PRN (02:43)
[2018-07-22] MEDS ORDERED: Promethazine HCl 25 MG/ML VIAL IM PRN (02:43)
--- NOTE | 2018-07-22 03:14 | HP ---
PRIMARY CARE PROVIDER: Elizabeth Pitts MD. CHIEF COMPLAINT: Difficulty breathing. HISTORY OF PRESENT ILLNESS: Ms. Mari is a pleasant 87-year-old lady who was seen at [facility] on July 22, 2018. The patient herself is unable to provide any significant history. Collateral history was obtained from discussion with emergency room physician and review of medical records. She reportedly had shortness of breath over the last couple of days. There is no history of any fevers or chills. She lives at [facility]. EMS was called, because of shortness of breath. Her room air oxygen saturations were 91%. She received treatment with CPAP, with improvement of oxygen saturation. She got magnesium, Solu-Medrol and DuoNebs from EMS. She was then brought to the emergency room. In the emergency room, she was found to be in atrial fibrillation with rapid ventricular response and was therefore referred to Hospitalist Service for admission. REVIEW OF SYSTEMS: Could not be completed, because patient is unable to answer questions. PAST MEDICAL HISTORY: Atrial fibrillation, status post pacemaker placement, dyslipidemia, hypertension, Alzheimer dementia, and osteoarthritis. PAST SURGICAL HISTORY: Pacemaker. SOCIAL HISTORY: No history of tobacco use, alcohol use, or recreational drug use. FAMILY HISTORY: Unable to obtain. ALLERGIES: PENICILLIN. CURRENT MEDICATIONS: 1. Calcium plus vitamin D 1 tab daily. 2. Lasix 40 mg daily. 3. Magnesium 400 mg daily. 4. Potassium chloride 20 mEq daily. 5. Xanax 0.5 mg daily as needed. 6. Metoprolol tartrate 12.5 mg 2 times daily. CODE STATUS: She has an [id number] DNR. This will need to be clarified with family members during the daytime, because I am unable to reach family members. PHYSICAL EXAMINATION: GENERAL: On examination, Ms. Mari is awake and alert, not in acute distress. VITAL SIGNS: Blood pressure is 143/80, pulse 117, respiratory rate 22, and oxygen saturation 97% on room air. She is afebrile. She is obese, with a BMI of 32.5. EYES: No scleral icterus, no conjunctival pallor. ENT: Moist mucosal membranes. No oropharyngeal erythema or exudates. NECK: Supple, nontender, trachea is midline. RESPIRATORY: Accessory muscles of breathing are not active. Chest wall movements are symmetric bilaterally. Lungs are clear to auscultation without wheeze, rhonchi, or crepitations. CARDIOVASCULAR: S1 and S2 are heard, tachycardic and irregular. Peripheral pulses palpable. No carotid bruit. No pericardial rub. ABDOMEN: Soft, nontender, bowel sounds are heard. NEUROLOGIC: Full neurologic examination was not possible secondary to patient's noncooperation. There is no facial droop. Deep tendon reflexes are 2+, plantars are downgoing bilaterally. MUSCULOSKELETAL: The patient is able to move all 4 extremities. SKIN: No rashes or subcutaneous nodules. She has bilateral lower extremity edema. LYMPHATIC: No cervical lymphadenopathy. PSYCHIATRIC: The patient appears anxious, unable to assess orientation to person, place, or time. LABORATORY DATA: Ms. Mari's labs and investigations were reviewed. I reviewed her electrocardiogram, which shows atrial fibrillation with rapid ventricular response, no ST changes to suggest an acute coronary syndrome. I also reviewed her chest x-ray, which does not show any pulmonary infiltrates. She has an unremarkable CBC, elevated blood urea nitrogen of 22, otherwise unremarkable comprehensive metabolic profile, normal lactic acid and troponin I that is negative x3. Urinalysis is positive for small amount of leukocyte esterase. ASSESSMENT AND PLAN: 1. Acute respiratory failure: The patient appears to be in significant respiratory distress when she initially presented to the emergency room. She has improved after treatment with BiPAP in the emergency room. Most likely secondary to atrial fibrillation with rapid ventricular response. Her BNP is mildly elevated at 127.2. The patient will be admitted to the hospital and her Lasix will be continued. She is currently saturating 97% on room air. 2. Atrial fibrillation with rapid ventricular response: We will continue patient on Cardizem drip. We will consult Cardiology for opinion and help with management. 3. Hypertension: We will continue metoprolol, monitor vital signs and titrate antihypertensives as needed. 4. Alzheimer's disease: We will continue home medications. 5. We will also interrogate pacemaker to evaluate for any arrhythmias. Many thanks for allowing me to participate in your patient's care. Please feel free to contact me with any questions or concerns. LEVEL OF RISK: Moderate. LEVEL OF COMPLEXITY: Moderate. ADDENDUM: Ms. Mari received antibiotics in the emergency room. There is no indication of infection at this time in the form of fever or leukocytosis. I am therefore not continuing the antibiotics. If she develops signs of infection, then antibiotics can be considered. Job ID: [id number]
[2018-07-22 07:19] LABS: #Lymphocytes 0.3 thou/uL (1.20-3.40); %Eosinophils 0.1 % (0.0-10.0); %Lymphocytes 6.3 % (21.0-51.0); %Monocytes 0.4 % (0.0-10.0); %Neutrophils 93.2 % (42.0-75.0); Hemoglobin 12.2 g/dL (12.0-16.0); Mean Corpuscular HGB CONC 32.7 g/dL (32.0-36.0); Mean Corpuscular Hemoglobin 30.8 pg (27.0-31.0); Mean Corpuscular Volume 94.1 fL (78.0-98.0); Mean Platelet Volume 9.6 fL (7.4-10.4); Platelet Count 147 thou/uL (130-400); RBC Distribution Width 12.7 % (11.5-14.5); Red Blood Cell (RBC) Count 3.98 mill/uL (4.20-5.40); White Blood Cell (WBC) Count 5.3 thou/uL (4.8-10.8)
[2018-07-22 07:43] LABS: Anion Gap 12 mmol/L (10-20); BUN (Urea Nitrogen) 23 mg/dL (9.8-20.1); Calc. Creatinine Clearance 69 mL/min (70-130); Calcium 9.6 mg/dL (7.8-10.44); Carbon Dioxide 27 mmol/L (23-31); Chloride 103 mmol/L (98-107); Estimated GFR-MDRD 64; Glucose 134 mg/dL (83-110); Potassium 4.3 mmol/L (3.5-5.1); Sodium 138 mmol/L (136-145)
[2018-07-22] MEDS ORDERED: ALPRAZolam 0.5 MG TAB PO SCH (09:00)
[2018-07-22] MEDS ORDERED: Metoprolol Tartrate 25 MG TAB PO SCH (09:00)
[2018-07-22] MEDS: Magnesium Oxide 400 MG TAB PO SCH (09:30)
[2018-07-22] MEDS: Atorvastatin Calcium 10 MG TAB PO SCH (09:30)
[2018-07-22] MEDS: Calcium Carbonate + Vit D 1 TAB PO SCH (09:30)
[2018-07-22] MEDS: Potassium Chloride 20 MEQ TAB PO SCH (09:30)
[2018-07-22] MEDS: Furosemide 40 MG TAB PO SCH (09:31)
[2018-07-22] MEDS: Budesonide 0.5 MG/2 ML NEB NEB SCH ×2 (10:29→18:48)
--- NOTE | 2018-07-22 11:29 | PDOC.PN ---
- Subjective Encounter Start Date: 07/22/18 Encounter Start Time: 11:27 Patient seen and examined, no family at bedside, sitter present, states she's been very agitated and confused, no other issues. - Objective Vital Signs & Weight: Vital Signs (12 hours) Temp Pulse Resp BP Pulse Ox 07/22/18 10:29 102 H 18 07/22/18 07:15 97.8 F 81 14 118/61 98 Weight Weight 201 lb 9.6 oz I&O: 07/21/18 07/22/18 07/23/18 06:59 06:59 06:59 Intake Total 200 Output Total 400 Balance -200 Result Diagrams: 07/22/18 06:56 07/22/18 06:56 Phys Exam - Physical Examination Constitutional: NAD HEENT: PERRLA, moist MMs, sclera anicteric Neck: no nodes, no JVD, supple Respiratory: no rales, no rhonchi, wheezing present Cardiovascular: RRR, no significant murmur, no rub Gastrointestinal: soft, non-tender, no distention, positive bowel sounds Musculoskeletal: pulses present, edema present Dx/Plan (1) Paroxysmal A-fib Code(s): I48.0 - PAROXYSMAL ATRIAL FIBRILLATION Status: Acute (2) Acute respiratory failure with hypoxia Code(s): J96.01 - ACUTE RESPIRATORY FAILURE WITH HYPOXIA Status: Acute (3) Alzheimer's dementia Code(s): G30.9 - ALZHEIMER'S DISEASE, UNSPECIFIED; F02.80 - DEMENTIA IN OTH DISEASES CLASSD ELSWHR W/O BEHAVRL DISTURB Status: Chronic (4) Anxiety and depression Code(s): F41.9 - ANXIETY DISORDER, UNSPECIFIED; F32.9 - MAJOR DEPRESSIVE DISORDER, SINGLE EPISODE, UNSPECIFIED Status: Chronic (5) Dyslipidemia Code(s): E78.5 - HYPERLIPIDEMIA, UNSPECIFIED Status: Chronic (6) Hypertension Code(s): I10 - ESSENTIAL (PRIMARY) HYPERTENSION Status: Chronic - Plan * still wheezing, cont with current management for now * cont diuretics * will add ativan q6hrs for agitation, DC daily oral xanax for now till better control acheived * BP stable * no family at bedside * overall prognosis, guarded
--- NOTE | 2018-07-22 11:35 | CON ---
DATE OF CONSULTATION: 07/22/2018 REASON FOR CONSULTATION: Atrial fibrillation. HISTORY OF PRESENT ILLNESS: Ms. Mari is an 87-year-old woman, who has underlying dementia. She recently presented with increased shortness of breath and AFib with RVR. The history is unobtainable. The patient has underlying dementia. She is currently on IV Cardizem. PAST MEDICAL HISTORY: Atrial fibrillation, pacemaker placement, hyperlipidemia, hypertension, dementia, and osteoarthritis. SOCIAL HISTORY: No current tobacco or alcohol use. ALLERGIES: PENICILLIN. HOME MEDICATIONS: 1. Zantac. 2. Potassium. 3. Magnesium. 4. Lasix. 5. Calcium. 6. Metoprolol. REVIEW OF SYSTEMS: A 10-point review of systems is reviewed and as above, otherwise negative. PHYSICAL EXAMINATION: GENERAL: Patient is a pleasant woman, who is in no acute distress. The patient appears their stated age. VITAL SIGNS: Blood pressure 118/61, pulse 81, and temperature 97.8. NEUROLOGIC: The patient is alert and oriented x3 with no focal neurologic deficits. HEENT: Sclerae without icterus. Mouth has moist mucous membranes with normal pallor. NECK: No JVD. Carotid upstroke brisk. No bruits bilaterally. LUNGS: Clear to auscultation with unlabored respirations. BACK: No scoliosis or kyphosis. CARDIAC: Regular rate and rhythm with normal S1 and S2. No S3 or S4 noted. No significant rubs, murmurs, thrills, or gallops noted throughout the precordium. PMI is not displaced. There is no parasternal heave. ABDOMEN: Soft, nontender, nondistended. No peritoneal signs present. No hepatosplenomegaly. No abnormal striae. EXTREMITIES: 2+ femoral and 2+ dorsalis pedis pulses. No cyanosis, clubbing, or edema. SKIN: No gross abnormalities. PERTINENT LABORATORY DATA: Hemoglobin 12.2. Creatinine 0.84, BUN 23, and glucose 134. . IMPRESSION: Atrial fibrillation with rapid ventricular response. RECOMMENDATIONS: She is currently on IV Cardizem, we will continue. We would add p.o. Cardizem and try and titrate down the IV Cardizem. We will use short-acting and then transferred to a long-acting drug. We would otherwise continue conservative therapy. We will also interrogate her pacemaker. Job ID: [id number]
[2018-07-22] MEDS: Lorazepam 2 MG/ML VIAL SLOW IVP PRN ×2 (13:47→21:55)
--- NOTE | 2018-07-22 16:19 | PDOC.CTH ---
Cardiology Progress Note - Subjective No overnight events per nurse. - Objective Vital Signs Temp Pulse Resp BP Pulse Ox 07/22/18 12:30 98.4 F 86 16 115/86 98 07/22/18 10:29 102 H 18 07/22/18 07:15 97.8 F 81 14 118/61 98 Weight 201 lb 9.6 oz 07/21/18 07/22/18 07/23/18 06:59 06:59 06:59 Intake Total 200 Output Total 400 Balance -200 - Physical Examination General/Neuro: other: (Alert and awake) Lungs: CTA Heart: other: (IRR) Abdomen: NT/ND - Telemetry Telemetry Rhythm: AF; -MINIBUS DRIVER - Labs Result Diagrams: 07/22/18 06:56 07/22/18 06:56 Troponin/CKMB Troponin I Less than 0.010 ng/mL (< 0.028) 07/21/18 21:56 - Assessment/Plan 1. AF with RVR. 2. s/p pacer 3. Dementia Stable rate-control at this time. Dr. Roy has attempted to reach family unsuccessfully at this point. We are trying to determine type of device to interrogate. No changes to meds for now. Pt seen and examined. Agree with above Recommend rate control Pacer interrogated and shows afib with intermittent RVR increase po CCB and decrease IV CCB
[2018-07-22] MEDS ORDERED: Vancomycin HCl 1 GM in Premix Bag 1 BAG IVPB SCH (16:45)
--- NOTE | 2018-07-22 16:45 | EKG ---
Test Reason : Blood Pressure : / mmHG Vent. Rate : 125 BPM Atrial Rate : 170 BPM P-R Int : 000 ms QRS Dur : 072 ms QT Int : 296 ms P-R-T Axes : 000 -23 039 degrees QTc Int : 427 ms Atrial fibrillation with rapid ventricular response Low voltage QRS Abnormal ECG Confirmed by MINDY RANDOLPH ([id number]), video tape editor GREG WILSON ([id number]) on 07/22/2018 4:45:20 PM Referred By: Confirmed By:MINDY RANDOLPH
[2018-07-22] MEDS ORDERED: Diltiazem 125 MG in Sodium Chloride 0.9% 100 ML IVPB SCH (18:40)
[2018-07-23 05:17] LABS: #Lymphocytes 0.8 thou/uL (1.20-3.40); #Monocytes 0.7 thou/uL (0.11-0.59); #Neutrophils 5.7 thou/uL (1.40-6.50); %Basophils 0.1 % (0.0-1.0); %Eosinophils 0.6 % (0.0-10.0); %Monocytes 9.4 % (0.0-10.0); %Neutrophils 78.9 % (42.0-75.0); Hemoglobin 11.4 g/dL (12.0-16.0); Mean Corpuscular HGB CONC 32.6 g/dL (32.0-36.0); Mean Corpuscular Hemoglobin 30.7 pg (27.0-31.0); Mean Platelet Volume 9.8 fL (7.4-10.4); Platelet Count 120 thou/uL (130-400); RBC Distribution Width 12.8 % (11.5-14.5); Red Blood Cell (RBC) Count 3.72 mill/uL (4.20-5.40); White Blood Cell (WBC) Count 7.3 thou/uL (4.8-10.8)
[2018-07-23 05:48] LABS: Anion Gap 10 mmol/L (10-20); BUN (Urea Nitrogen) 25 mg/dL (9.8-20.1); Calc. Creatinine Clearance 77 mL/min (70-130); Calcium 8.8 mg/dL (7.8-10.44); Carbon Dioxide 26 mmol/L (23-31); Chloride 106 mmol/L (98-107); Estimated GFR-MDRD 72; Glucose 106 mg/dL (83-110); Potassium 4.4 mmol/L (3.5-5.1); Sodium 138 mmol/L (136-145)
[2018-07-23] MEDS: Budesonide 0.5 MG/2 ML NEB NEB SCH ×2 (07:30→19:19)
[2018-07-23] MEDS: Atorvastatin Calcium 10 MG TAB PO SCH (07:48)
[2018-07-23] MEDS: Potassium Chloride 20 MEQ TAB PO SCH (07:48)
[2018-07-23] MEDS: Calcium Carbonate + Vit D 1 TAB PO SCH (07:49)
[2018-07-23] MEDS: Furosemide 40 MG TAB PO SCH (07:49)
[2018-07-23] MEDS: Magnesium Oxide 400 MG TAB PO SCH (07:49)
[2018-07-23] MEDS: Lorazepam 2 MG/ML VIAL SLOW IVP PRN (07:58)
[2018-07-23] MEDS: Diltiazem HCl CD 300 mg Capsule PO SCH (08:47)
--- NOTE | 2018-07-23 11:25 | PDOC.PN ---
- Subjective Encounter Start Date: 07/23/18 Encounter Start Time: 11:23 Patient seen and examined, no new issues. - Objective Resuscitation Status - Order Detail: 07/23/18 11:22 Resuscitation Status Routine Resuscitation Status: DNAR: NO Resuscitation Discussed with: out of hospital DNR in [facility] Vital Signs & Weight: Vital Signs (12 hours) Temp Pulse Resp BP Pulse Ox 07/23/18 08:47 60 07/23/18 07:30 60 16 07/23/18 07:26 97.2 F L 80 19 148/64 H 98 07/23/18 03:48 97.6 F 60 22 H 105/52 L 98 Weight Weight 201 lb 9.6 oz I&O: 07/22/18 07/23/18 07/24/18 06:59 06:59 06:59 Intake Total 200 100 Output Total 400 900 Balance -200 -800 Result Diagrams: 07/23/18 04:32 07/23/18 04:32 Phys Exam - Physical Examination Constitutional: NAD confused HEENT: PERRLA, moist MMs, sclera anicteric Neck: no nodes, no JVD Respiratory: no wheezing, no rales, no rhonchi Cardiovascular: RRR, no significant murmur, no rub Gastrointestinal: soft, non-tender, no distention, positive bowel sounds Musculoskeletal: pulses present, edema present Dx/Plan (1) Paroxysmal A-fib Code(s): I48.0 - PAROXYSMAL ATRIAL FIBRILLATION Status: Acute (2) Acute respiratory failure with hypoxia Code(s): J96.01 - ACUTE RESPIRATORY FAILURE WITH HYPOXIA Status: Acute (3) Alzheimer's dementia Code(s): G30.9 - ALZHEIMER'S DISEASE, UNSPECIFIED; F02.80 - DEMENTIA IN OTH DISEASES CLASSD ELSWHR W/O BEHAVRL DISTURB Status: Chronic (4) Anxiety and depression Code(s): F41.9 - ANXIETY DISORDER, UNSPECIFIED; F32.9 - MAJOR DEPRESSIVE DISORDER, SINGLE EPISODE, UNSPECIFIED Status: Chronic (5) Dyslipidemia Code(s): E78.5 - HYPERLIPIDEMIA, UNSPECIFIED Status: Chronic (6) Hypertension Code(s): I10 - ESSENTIAL (PRIMARY) HYPERTENSION Status: Chronic - Plan * DNR in chart * cont current plan of care * placement issues * overall prognosis guarded * cont diuretics and PRN ativan for now
--- NOTE | 2018-07-23 12:29 | PDOC.CTH ---
Cardiology Progress Note - Subjective Resting comfortable. No complaints. Off cardizem gtt and rate stable. - Objective Vital Signs Temp Pulse Resp BP Pulse Ox 07/23/18 08:47 60 07/23/18 07:30 60 16 07/23/18 07:26 97.2 F L 80 19 148/64 H 98 07/23/18 03:48 97.6 F 60 22 H 105/52 L 98 Weight 201 lb 9.6 oz 07/22/18 07/23/18 07/24/18 06:59 06:59 06:59 Intake Total 200 100 Output Total 400 900 Balance -200 -800 - Physical Examination General/Neuro: other: (alert and awake) Neck: no JVD present Lungs: CTA Heart: other: (IRR) Abdomen: NT/ND - Telemetry Telemetry Rhythm: AF - Labs Result Diagrams: 07/23/18 04:32 07/23/18 04:32 Troponin/CKMB Troponin I Less than 0.010 ng/mL (< 0.028) 07/21/18 21:56 - Assessment/Plan 1. AF with RVR. 2. s/p pacer 3. Dementia Continue oral cardizem and bblocker. Start discharge planning. If vitals remains stable overnight can be transferred to medical.
--- NOTE | 2018-07-24 06:40 | PDOC.CTH ---
Cardiology Progress Note - Subjective No changes. Rate controlled - Objective Vital Signs Temp Pulse Resp BP Pulse Ox 07/24/18 03:03 97.5 F L 68 14 129/79 95 07/23/18 20:00 97.3 F L 72 20 125/74 07/23/18 19:35 94 L 07/23/18 19:19 93 L 07/23/18 19:18 93 L Weight 197 lb 2 oz 07/22/18 07/23/18 07/24/18 06:59 06:59 06:59 Intake Total 200 100 240 Output Total 400 900 600 Balance -200 -800 -360 - Physical Examination General/Neuro: NAD Neck: no JVD present Lungs: CTA, unlabored respirations Heart: PMI normal, other: (irr) Abdomen: NT/ND, soft Extremities: + femoral B - Telemetry Telemetry Rhythm: afib - Labs Result Diagrams: 07/24/18 08:38 07/24/18 08:38 Troponin/CKMB Troponin I Less than 0.010 ng/mL (< 0.028) 07/21/18 21:56 - Assessment/Plan 1. AF with RVR. 2. s/p pacer 3. Dementia Add ACT. I have tried to reach out to family and no answer. Pt is rate controlled No further recommendations Recommend fu with Dr. Muñoz as OP If staying longer in hospital, transfer to medical
[2018-07-24] MEDS: Budesonide 0.5 MG/2 ML NEB NEB SCH (07:14)
[2018-07-24] MEDS: Furosemide 40 MG TAB PO SCH (08:15)
[2018-07-24] MEDS: Atorvastatin Calcium 10 MG TAB PO SCH (08:15)
[2018-07-24] MEDS: Magnesium Oxide 400 MG TAB PO SCH (08:15)
[2018-07-24] MEDS: Potassium Chloride 20 MEQ TAB PO SCH (08:15)
[2018-07-24] MEDS: Diltiazem HCl CD 300 mg Capsule PO SCH (08:15)
[2018-07-24] MEDS: Calcium Carbonate + Vit D 1 TAB PO SCH (08:15)
[2018-07-24 08:44] LABS: Platelet Count 121 thou/uL (130-400)
[2018-07-24] MEDS: Lorazepam 2 MG/ML VIAL SLOW IVP PRN (08:47)
[2018-07-24] MEDS ORDERED: Apixaban 2.5 MG TAB PO SCH (09:00)
[2018-07-24 09:37] LABS: Hemoglobin 12.7 g/dL (12.0-16.0)
[2018-07-24 16:25] VITALS: BP 122/68; TEMP 97.5
== END 2018-07-24 16:30 | DRG 308 ==
LOC: ERS 18:06 → 2NO 20:56
PROVIDERS: ADMIT Family Medicine; ATTEND Family Medicine
PROC: 5A09357 Assistance with Respiratory Ventilation, Less than 24 Consecutive Hours, Continuous Positive Airway Pressure (ICD-10-PCS; principal; 2018-07-21)
DX: I48.0 Paroxysmal atrial fibrillation (principal); J96.01 Acute respiratory failure with hypoxia; Z66 Do not resuscitate; E78.00 Pure hypercholesterolemia, unspecified; I10 Essential (primary) hypertension; G30.9 Alzheimer's disease, unspecified; F02.80 Dementia in other diseases classified elsewhere, unspecified severity, without behavioral disturbance, psychotic disturbance, mood disturbance, and anxiety; M19.90 Unspecified osteoarthritis, unspecified site; F41.9 Anxiety disorder, unspecified; F32.9 Major depressive disorder, single episode, unspecified; E66.9 Obesity, unspecified; Z68.32 Body mass index [BMI] 32.0-32.9, adult; Z95.0 Presence of cardiac pacemaker; Z88.0 Allergy status to penicillin; Z79.899 Other long term (current) drug therapy
CPT/HCPCS: 36415; 51702; 71045; 80048; 80053; 81003; 81015; 82550; 82565; 83605; 83880; 84484; 85014; 85018; 85025; 85049; 87040; 87077; 87149; 87186; 93005; 94640; 94660; 96365; 96368; 96375; 96376; J0456; J0696; J1630; J2060; J3370; J3490; J7620; J7626

== ENCOUNTER 2018-07-26 16:35 | Inpatient (IN) | payer MEDICARE ==
[2018-07-26] MEDS ORDERED: Magnesium 2 GM/50 ML BAG (IN WATER) ONE (17:20)
[2018-07-26 17:40] LABS: #Eosinphils 0.8 thou/uL (0.0-0.7); #Lymphocytes 1.3 thou/uL (1.20-3.40); #Monocytes 0.8 thou/uL (0.11-0.59); #Neutrophils 8.2 thou/uL (1.40-6.50); %Basophils 0.4 % (0.0-1.0); %Lymphocytes 11.3 % (21.0-51.0); %Monocytes 7.1 % (0.0-10.0); %Neutrophils 74.1 % (42.0-75.0); Hemoglobin 13.8 g/dL (12.0-16.0); Mean Corpuscular HGB CONC 31.9 g/dL (32.0-36.0); Mean Corpuscular Hemoglobin 30.3 pg (27.0-31.0); Mean Corpuscular Volume 94.9 fL (78.0-98.0); Mean Platelet Volume 9.8 fL (7.4-10.4); Platelet Count 173 thou/uL (130-400); RBC Distribution Width 12.7 % (11.5-14.5); Red Blood Cell (RBC) Count 4.56 mill/uL (4.20-5.40)
--- NOTE | 2018-07-26 17:47 | RAD ---
XR Chest 1 View Portable HISTORY: Cough and wheezing COMPARISON: 07/21/2018 study FINDINGS: Heart size is enlarged with a pacemaker present. There is elevation to the left hemidiaphra gm. Bibasilar lung changes are seen. The changes in the left base appears slightly worsened as compared to the prior exam. IMPRESSION: Cardiomegaly and bibasilar atelectatic lung change worse within the left base.
[2018-07-26 18:02] LABS: ALT (SGPT) 18 U/L (8-55); AST (SGOT) 19 U/L (5-34); Albumin 4.1 g/dL (3.4-4.8); Alkaline Phosphatase 120 U/L (40-150); Anion Gap 15 mmol/L (10-20); BUN (Urea Nitrogen) 24 mg/dL (9.8-20.1); Bilirubin, Total 0.8 mg/dL (0.2-1.2); Calc. Creatinine Clearance 0 mL/min (70-130); Calcium 9.4 mg/dL (7.8-10.44); Carbon Dioxide 24 mmol/L (23-31); Chloride 103 mmol/L (98-107); Estimated GFR-MDRD 54; Glucose 158 mg/dL (83-110); Potassium 3.9 mmol/L (3.5-5.1); Protein, Total 7.1 g/dL (6.0-8.3); Sodium 138 mmol/L (136-145)
[2018-07-27] MEDS ORDERED: methylPREDNISolone Sod Succ 40 MG VIAL ONE (08:27)
[2018-07-27] MEDS ORDERED: Lorazepam 0.5 MG TAB PO SCH (11:15)
[2018-07-27 11:26] VITALS: BMI 38.2
[2018-07-27] MEDS ORDERED: ALPRAZolam 0.25 MG TAB PO SCH (14:15)
[2018-07-27] MEDS ORDERED: Senokot S 8.6-50 MG TAB PO PRN (14:25)
[2018-07-27] MEDS ORDERED: methylPREDNISolone Sod Succ/PF 125 MG/2 ML VIAL IVP SCH (15:00)
[2018-07-27 15:06] LABS: #Lymphocytes 0.6 thou/uL (1.20-3.40); #Monocytes 0.2 thou/uL (0.11-0.59); #Neutrophils 10.2 thou/uL (1.40-6.50); %Basophils 0.1 % (0.0-1.0); %Eosinophils 0.1 % (0.0-10.0); %Lymphocytes 5.4 % (21.0-51.0); %Monocytes 1.4 % (0.0-10.0); %Neutrophils 92.9 % (42.0-75.0); Mean Corpuscular HGB CONC 32.1 g/dL (32.0-36.0); Mean Corpuscular Hemoglobin 30.4 pg (27.0-31.0); Mean Corpuscular Volume 94.6 fL (78.0-98.0); Mean Platelet Volume 9.9 fL (7.4-10.4); Platelet Count 166 thou/uL (130-400); White Blood Cell (WBC) Count 10.9 thou/uL (4.8-10.8)
[2018-07-27 15:24] LABS: Anion Gap 16 mmol/L (10-20); BUN (Urea Nitrogen) 23 mg/dL (9.8-20.1); Calc. Creatinine Clearance 68 mL/min (70-130); Calcium 9.7 mg/dL (7.8-10.44); Carbon Dioxide 24 mmol/L (23-31); Chloride 104 mmol/L (98-107); Estimated GFR-MDRD 65; Glucose 116 mg/dL (83-110); Potassium 4.2 mmol/L (3.5-5.1); Sodium 140 mmol/L (136-145)
[2018-07-27 16:56] LABS: CKMB 4.5 ng/mL (0-6.6); Troponin I Less than 0.010 ng/mL (< 0.028)
--- NOTE | 2018-07-27 17:38 | PDOC.PN ---
- Subjective Encounter Start Date: 07/27/18 Encounter Start Time: 14:15 Subjective: Patient examined, has a hx of dementia -: but does answer simple questions in between -: making moaning type sounds which the nurses she has been doing since admission, she does not appear in distress - Objective Vital Signs & Weight: Vital Signs (12 hours) Temp Pulse Resp BP Pulse Ox 07/27/18 14:39 117 H 22 H 96 07/27/18 11:54 98.6 F 106 H 18 144/80 H 18 L 07/27/18 11:33 113 H 22 H 97 07/27/18 11:27 97 07/27/18 09:46 97.5 F L 100 20 145/83 H 97 07/27/18 08:00 97.5 F L 108 H 18 145/83 H 97 Weight Weight 88.949 kg Result Diagrams: 07/27/18 14:42 07/27/18 14:42 Phys Exam - Physical Examination Constitutional: NAD mucous membranes are dry Respiratory: wheezing present scattered rhonchi, wheezes in all lung diaz Cardiovascular: RRR Gastrointestinal: soft, non-tender Musculoskeletal: no edema, pulses present Neurological: non-focal Deviation from normal: Will answer simple questions, hx of dementia Dx/Plan (1) Acute respiratory failure with hypoxia Code(s): J96.01 - ACUTE RESPIRATORY FAILURE WITH HYPOXIA Status: Acute (2) Paroxysmal A-fib Code(s): I48.0 - PAROXYSMAL ATRIAL FIBRILLATION Status: Acute (3) Alzheimer's dementia Code(s): G30.9 - ALZHEIMER'S DISEASE, UNSPECIFIED; F02.80 - DEMENTIA IN OTH DISEASES CLASSD ELSWHR W/O BEHAVRL DISTURB Status: Chronic (4) Dyslipidemia Code(s): E78.5 - HYPERLIPIDEMIA, UNSPECIFIED Status: Chronic (5) Hypertension Code(s): I10 - ESSENTIAL (PRIMARY) HYPERTENSION Status: Chronic - Plan cont current plan of care, continue antibiotics, respiratory therapy Continue neb treatments, steroids and Levaquin -: Keep O2 above 92. Patient HR stable in 100's, on Eliquis for Afib -: If respiratory status improved tomorrow, may consider -: returning to [place]. * .
--- NOTE | 2018-07-27 20:22 | HP ---
PRIMARY CARE DOCTOR: SANTY Brar. CODE STATUS: The patient has an out of hospital DNR. This has not been verified as of now with her family. TIME OF EVALUATION: 09:45 p.m., on 07/26/2018. Note is being dictated with a delay due to the [employer] problems. CHIEF COMPLAINT: Reportedly hypoxia. HISTORY OF PRESENT ILLNESS: This is an 87-year-old female patient with past medical history of dementia. The patient gives no history. Information has been gathered from nursing staff and from ER physician. The patient was sent from the [facility]pc since the patient was having hypoxia with no clear triggers, no alleviating factors. The patient has severe symptoms, needing nasal cannula with oxygen delivery of 2 L to correct saturation. The symptoms were mild to moderate with no clear triggers, no alleviating factors. REVIEW OF SYSTEMS: Unable to obtain. The patient has underlying dementia and is not able to give any accurate history. PAST MEDICAL HISTORY: Positive for dementia, atrial fibrillation, dyslipidemia, hypertension, and osteoarthritis. PAST SURGICAL HISTORY: Pacemaker. SOCIAL HISTORY: No alcohol. No drugs. No smoking history. FAMILY HISTORY: Unable to obtain. The patient is nonverbal. ALLERGIES: PENICILLIN. REPORTED MEDICATIONS: 1. Calcium. 2. Lasix. 3. Magnesium. 4. Potassium. 5. Xanax. 6. Metoprolol. PHYSICAL EXAMINATION: GENERAL APPEARANCE: The patient is alert, disoriented, underlying dementia. She is moaning. Does not seem to be in any distress. HEENT: Eyes; normal conjunctivae. Moist oral mucosa. Anicteric. NECK: No JVD. RESPIRATORY: The patient has decreased bilateral air entry with no rales. The patient has bilateral wheezing. Symmetric expansion. CARDIOVASCULAR: Normal rate, regular rhythm. No murmurs. No gallop. Bilateral leg edema. ABDOMEN: Soft. Normal bowel sounds. MUSCULOSKELETAL: Baseline range of motion and strength. No tenderness. SKIN: Warm and intact. No pallor. No rash. No redness. Capillary refill seems to be intact. NEUROLOGIC: No evidence of any new focal weakness. Cranial nerves seem to be intact. PSYCHIATRIC: The patient is in good mood. No anxiety. Underlying dementia. Suboptimal judgment. IMAGING DATA: Chest x-ray was reviewed. The patient has cardiomegaly and bibasilar atelectatic lung change, worse within the left base. LABORATORY DATA: Labs are reviewed. The patient has a white count of 11, hemoglobin 13.8, MCV 94.9, platelet count 173. Chemistry; sodium 138, potassium 3.9, chloride 103, carbon dioxide 24, anion gap 15, BUN 24, creatinine 0.97, GFR 54, glucose 158, calcium 9.4, total bilirubin 0.8. LFTs were negative. Troponin was negative x2. Beta-natriuretic peptide was 103.3. Serum total protein 7.1, albumin 4.1, globulin 3, and albumin/globulin ratio is 1.4. ASSESSMENT AND PLAN: The patient will be placed in the hospital with following medical problems. 1. Underlying dementia. The patient will need help as inpatient and supportive care goal. 2. Chronic obstructive pulmonary disease exacerbation. The patient has a wheezing. The patient has a history of chronic obstructive pulmonary disease. Place the patient on nebulizers, antibiotics, and steroids. 3. History of atrial fibrillation, rate is being controlled. Reconcile home medications. Adjust as needed. 4. History of constipation. Reconcile home medications. 5. History of anxiety. Continue alprazolam for now. 6. History of gastroesophageal reflux disease. Reconcile home medications. 7. Deep venous thrombosis prophylaxis. Job ID: [id number]
[2018-07-27] MEDS: Acetaminophen 325 MG TAB PO PRN (20:58)
[2018-07-27] MEDS: Famotidine 20 MG TAB PO SCH (20:59)
[2018-07-27] MEDS: Apixaban 2.5 MG TAB PO SCH (20:59)
[2018-07-27] MEDS: Nystatin Powder 15 GM BOT TOP PRN (21:00)
[2018-07-27] MEDS: methylPREDNISolone Sod Succ 40 MG VIAL IVP SCH (21:16)
[2018-07-28] MEDS: methylPREDNISolone Sod Succ 40 MG VIAL IVP SCH ×2 (05:19→13:35)
[2018-07-28 05:27] LABS: #Lymphocytes 0.5 thou/uL (1.20-3.40); #Monocytes 0.2 thou/uL (0.11-0.59); #Neutrophils 7.3 thou/uL (1.40-6.50); %Eosinophils 0.2 % (0.0-10.0); %Lymphocytes 5.8 % (21.0-51.0); Mean Corpuscular HGB CONC 32.4 g/dL (32.0-36.0); Mean Corpuscular Hemoglobin 30.7 pg (27.0-31.0); Mean Corpuscular Volume 94.7 fL (78.0-98.0); Mean Platelet Volume 9.4 fL (7.4-10.4); Platelet Count 136 thou/uL (130-400); RBC Distribution Width 12.8 % (11.5-14.5); Red Blood Cell (RBC) Count 4.25 mill/uL (4.20-5.40); White Blood Cell (WBC) Count 7.9 thou/uL (4.8-10.8)
[2018-07-28 05:46] LABS: Anion Gap 14 mmol/L (10-20); BUN (Urea Nitrogen) 21 mg/dL (9.8-20.1); Calc. Creatinine Clearance 71 mL/min (70-130); Calcium 9.2 mg/dL (7.8-10.44); Carbon Dioxide 23 mmol/L (23-31); Chloride 105 mmol/L (98-107); Estimated GFR-MDRD 68; Glucose 130 mg/dL (83-110); Sodium 138 mmol/L (136-145)
[2018-07-28] MEDS: Furosemide 40 MG TAB PO SCH (10:26)
[2018-07-28] MEDS: Diltiazem HCl CD 300 mg Capsule PO SCH (10:26)
[2018-07-28] MEDS: Apixaban 2.5 MG TAB PO SCH ×2 (10:26→20:47)
[2018-07-28] MEDS: Calcium Carbonate + Vit D 1 TAB PO SCH (10:27)
[2018-07-28] MEDS: ALPRAZolam 0.5 MG TAB PO SCH (10:27)
[2018-07-28] MEDS: Magnesium Oxide 400 MG TAB PO SCH (10:27)
[2018-07-28] MEDS: Famotidine 20 MG TAB PO SCH ×2 (10:27→20:47)
[2018-07-28] MEDS: Nystatin Powder 15 GM BOT TOP PRN ×2 (12:00→16:52)
--- NOTE | 2018-07-28 18:20 | PDOC.PN ---
- Subjective Encounter Start Date: 07/28/18 Encounter Start Time: 13:00 Ms. Mari was seen today in follow-up of COPD exacerbation. She says she is breathing better now. She does not have any new complaints. However, subjective complaints are affected by her dementia I suspect. - Objective MAR Reviewed: Yes Vital Signs & Weight: Vital Signs (12 hours) Temp Pulse Resp BP BP BP Pulse Ox 07/28/18 16:00 97.8 F 74 20 113/66 94 L 07/28/18 11:01 86 16 97 07/28/18 10:26 95 148/89 H 07/28/18 09:44 97.8 F 95 20 148/89 H 97 07/28/18 09:23 97 07/28/18 08:00 97.9 F 86 18 118/86 98 07/28/18 07:57 80 16 95 Weight Weight 196 lb 1.6 oz I&O: 07/27/18 07/28/18 07/29/18 06:59 06:59 06:59 Intake Total 421 870 Balance 421 870 Result Diagrams: 07/28/18 05:11 07/28/18 05:11 Phys Exam - Physical Examination HEENT: PERRLA + occasional faint wheeze Cardiovascular: RRR, no significant murmur, no rub Gastrointestinal: soft, non-tender, no distention, positive bowel sounds Musculoskeletal: no edema, pulses present Dx/Plan (1) Acute and chronic respiratory failure with hypoxia Code(s): J96.21 - ACUTE AND CHRONIC RESPIRATORY FAILURE WITH HYPOXIA Status: Acute (2) COPD exacerbation Code(s): J44.1 - CHRONIC OBSTRUCTIVE PULMONARY DISEASE W (ACUTE) EXACERBATION Status: Acute (3) Alzheimer's dementia Code(s): G30.9 - ALZHEIMER'S DISEASE, UNSPECIFIED; F02.80 - DEMENTIA IN OTH DISEASES CLASSD ELSWHR W/O BEHAVRL DISTURB Status: Chronic (4) Hypertension Code(s): I10 - ESSENTIAL (PRIMARY) HYPERTENSION Status: Chronic (5) Paroxysmal A-fib Code(s): I48.0 - PAROXYSMAL ATRIAL FIBRILLATION Status: Chronic - Plan * Acute on chronic respiratory failure- improving * Will change steroids to oral * Continue empiric antibiotics * HTN- blood pressure is stable * Chronic AFIB- stable- on Eliquis for CVA prevention * Hopefully back to [place] soon.
[2018-07-28] MEDS ORDERED: ALPRAZolam 0.5 MG TAB PO SCH (23:00)
[2018-07-29] MEDS: Magnesium Oxide 400 MG TAB PO SCH (08:10)
[2018-07-29] MEDS: Calcium Carbonate + Vit D 1 TAB PO SCH (08:10)
[2018-07-29] MEDS: ALPRAZolam 0.5 MG TAB PO SCH (08:10)
[2018-07-29] MEDS: predniSONE 20 MG TAB PO SCH (08:10)
[2018-07-29] MEDS: Furosemide 40 MG TAB PO SCH (08:10)
[2018-07-29] MEDS: Famotidine 20 MG TAB PO SCH ×2 (08:10→20:02)
[2018-07-29] MEDS: Diltiazem HCl CD 300 mg Capsule PO SCH (08:11)
[2018-07-29] MEDS: Apixaban 2.5 MG TAB PO SCH ×2 (08:11→20:03)
[2018-07-29] MEDS ORDERED: guaiFENesin/DM ER PO SCH ×2 (12:00→21:00)
[2018-07-29] MEDS: Acetaminophen 325 MG TAB PO PRN (16:40)
--- NOTE | 2018-07-29 17:10 | EKG ---
Test Reason : Blood Pressure : / mmHG Vent. Rate : 124 BPM Atrial Rate : 312 BPM P-R Int : 000 ms QRS Dur : 082 ms QT Int : 380 ms P-R-T Axes : 000 -29 014 degrees QTc Int : 545 ms Atrial fibrillation with rapid ventricular response Low voltage QRS RSR' or QR pattern in V1 suggests right ventricular conduction delay Abnormal ECG Confirmed by TONY BARTHOLOMEW DO ([id number]), photograph editor GREG WILSON ([id number]) on 07/29/2018 5:10:10 PM Referred By: Confirmed By:TONY BARTHOLOMEW DO
[2018-07-29] MEDS ORDERED: ALPRAZolam 0.5 MG TAB PO SCH (19:00)
--- NOTE | 2018-07-29 20:35 | PDOC.PN ---
- Subjective Encounter Start Date: 07/29/18 Encounter Start Time: 19:10 Subjective: f/u for resp failure, COPD exacerbation on Levaquin/Prednisone. - Objective MAR Reviewed: Yes Vital Signs & Weight: Vital Signs (12 hours) Temp Pulse Resp BP BP Pulse Ox 07/29/18 19:40 97.8 F 88 22 H 117/65 95 07/29/18 18:22 76 18 95 07/29/18 15:50 98.0 F 62 20 120/70 97 07/29/18 11:23 97.8 F 63 20 101/58 L 96 07/29/18 11:00 60 16 96 Weight Weight 196 lb 1.6 oz I&O: 07/28/18 07/29/18 07/30/18 06:59 06:59 06:59 Intake Total 421 1620 880 Balance 421 1620 880 Result Diagrams: 07/28/18 05:11 07/28/18 05:11 Radiology Reviewed by me: Yes (PCXR - L basilar atelectasis > R) Phys Exam - Physical Examination Constitutional: NAD HEENT: PERRLA, sclera anicteric, oral pharynx no lesions Neck: no nodes, no JVD, supple, full ROM diminished bilat, occasional exp wheeze S1, S2 Cardiovascular: RRR, no significant murmur, no rub, gallop Gastrointestinal: soft, non-tender, no distention, positive bowel sounds Musculoskeletal: no edema, pulses present Neurological: normal sensation, moves all 4 limbs Skin: normal turgor, cap refill <2 seconds Dx/Plan (1) Acute and chronic respiratory failure with hypoxia Code(s): J96.21 - ACUTE AND CHRONIC RESPIRATORY FAILURE WITH HYPOXIA Status: Acute Comment: Continue pulm support, wean O2 as clinically indicated (2) COPD exacerbation Code(s): J44.1 - CHRONIC OBSTRUCTIVE PULMONARY DISEASE W (ACUTE) EXACERBATION Status: Acute Comment: Continue Levaquin/Prednisone/Duonebs (3) Alzheimer's dementia Code(s): G30.9 - ALZHEIMER'S DISEASE, UNSPECIFIED; F02.80 - DEMENTIA IN OTH DISEASES CLASSD ELSWHR W/O BEHAVRL DISTURB Status: Chronic Comment: Supportive mgmt, re-orientation techniques (4) Hypertension Code(s): I10 - ESSENTIAL (PRIMARY) HYPERTENSION Status: Chronic Qualifiers: Hypertension type: essential hypertension Qualified Code(s): I10 - Essential (primary) hypertension Comment: Continue Diltiazem, serial BP monitoring - Plan continue antibiotics, PT/OT, social security specialist, respiratory therapy, DVT proph w/ SCDs Stable currently -: Change Levaquin 750mg po daily -: Continue Prednisone -: Continue Duonebs -: Continue Eliquis * Likely back to SNF in 24-48h
[2018-07-29] MEDS ORDERED: Diabetic Tussin 200 MG/10 ML UDCUP PO PRN (22:30)
[2018-07-30] MEDS: Apixaban 2.5 MG TAB PO SCH ×2 (09:16→20:27)
[2018-07-30] MEDS: Furosemide 40 MG TAB PO SCH (09:16)
[2018-07-30] MEDS: predniSONE 20 MG TAB PO SCH (09:16)
[2018-07-30] MEDS: Calcium Carbonate + Vit D 1 TAB PO SCH (09:17)
[2018-07-30] MEDS: ALPRAZolam 0.5 MG TAB PO SCH (09:17)
[2018-07-30] MEDS: Magnesium Oxide 400 MG TAB PO SCH (09:17)
[2018-07-30] MEDS: Famotidine 20 MG TAB PO SCH ×2 (09:17→20:27)
[2018-07-30] MEDS: Diltiazem HCl CD 300 mg Capsule PO SCH (09:18)
[2018-07-30] MEDS: Nystatin Powder 15 GM BOT TOP PRN (09:23)
--- NOTE | 2018-07-30 13:30 | PDOC.PN ---
- Subjective Encounter Start Date: 07/30/18 Encounter Start Time: 13:25 Subjective: f/u resp failure, COPD exacerbation currently maintaining O2 -: sats on RA. No new events per nursing. - Objective MAR Reviewed: Yes Vital Signs & Weight: Vital Signs (12 hours) Temp Pulse Resp BP BP Pulse Ox 07/30/18 10:43 72 18 98 07/30/18 09:18 76 130/76 07/30/18 08:00 97.5 F L 76 18 130/76 92 L 07/30/18 06:53 76 20 100 07/30/18 04:00 20 07/30/18 02:30 71 16 96 Weight Weight 196 lb 1.6 oz I&O: 07/29/18 07/30/18 07/31/18 06:59 06:59 06:59 Intake Total 1620 955 Balance 1620 955 Result Diagrams: 07/28/18 05:11 07/28/18 05:11 Phys Exam - Physical Examination Constitutional: NAD sleepy HEENT: PERRLA, sclera anicteric Neck: no nodes, no JVD, supple, full ROM diminished in bases Respiratory: no wheezing, no rales, no rhonchi S1, S2 Cardiovascular: RRR, no significant murmur, no rub, gallop Gastrointestinal: soft, non-tender, no distention, positive bowel sounds Musculoskeletal: pulses present, edema present Neurological: normal sensation A x O x 1 Skin: normal turgor, cap refill <2 seconds Dx/Plan (1) Acute and chronic respiratory failure with hypoxia Code(s): J96.21 - ACUTE AND CHRONIC RESPIRATORY FAILURE WITH HYPOXIA Status: Acute Comment: Continue pulm support, wean O2 as clinically indicated (2) COPD exacerbation Code(s): J44.1 - CHRONIC OBSTRUCTIVE PULMONARY DISEASE W (ACUTE) EXACERBATION Status: Acute Comment: Continue Levaquin/Prednisone/Duonebs, improved (3) Alzheimer's dementia Code(s): G30.9 - ALZHEIMER'S DISEASE, UNSPECIFIED; F02.80 - DEMENTIA IN OTH DISEASES CLASSD ELSWHR W/O BEHAVRL DISTURB Status: Chronic Comment: Supportive mgmt, re-orientation techniques (4) Hypertension Code(s): I10 - ESSENTIAL (PRIMARY) HYPERTENSION Status: Chronic Qualifiers: Hypertension type: essential hypertension Qualified Code(s): I10 - Essential (primary) hypertension Comment: Continue Diltiazem, serial BP monitoring - Plan continue antibiotics, social welfare administrator, respiratory therapy, DVT proph w/SCDs Stable currently -: Continue Levaquin -: Continue Prednisone/Duonebs -: Continue Eliquis 2.5mg BID -: D/C back to [facility] in am * .
[2018-07-30] MEDS ORDERED: ALPRAZolam 0.5 MG TAB PO SCH (20:45)
[2018-07-31] MEDS: Magnesium Oxide 400 MG TAB PO SCH (08:48)
[2018-07-31] MEDS: Famotidine 20 MG TAB PO SCH (08:48)
[2018-07-31] MEDS: Calcium Carbonate + Vit D 1 TAB PO SCH (08:48)
[2018-07-31] MEDS: Furosemide 40 MG TAB PO SCH (08:48)
[2018-07-31] MEDS: predniSONE 20 MG TAB PO SCH (08:48)
[2018-07-31] MEDS: ALPRAZolam 0.5 MG TAB PO SCH (08:48)
[2018-07-31] MEDS: Diltiazem HCl CD 300 mg Capsule PO SCH (08:51)
[2018-07-31] MEDS: Apixaban 2.5 MG TAB PO SCH (08:52)
[2018-07-31] MEDS: Nystatin Powder 15 GM BOT TOP PRN (08:53)
[2018-07-31 11:11] VITALS: BP 127/66; TEMP 96.4
--- NOTE | 2018-07-31 21:29 | DIS ---
DATE OF ADMISSION: 07/26/2018 DATE OF DISCHARGE: 07/31/2018 DISCHARGE DIAGNOSES: 1. Acute on chronic hypoxic respiratory failure secondary to #2, improved. 2. Chronic obstructive pulmonary disease exacerbation, improved. 3. Alzheimer's dementia, advanced. 4. Hypertension, stable. 5. Chronic anticoagulation with Eliquis. CONSULTATIONS: None. PERTINENT LABORATORY AND X-RAY FINDINGS: Basic metabolic profile within normal limits. BNP 103. Troponin I negative x3. CBC showed a white blood cell count ranged between 7.9 to 11.0. Portable chest x-ray dated 07/26/2018, showed bibasilar atelectasis. HOSPITAL COURSE: The patient was initially admitted after presenting with dyspnea with hypoxia. The patient was initially placed on 2 L/minute by nasal cannula, undergoing chest imaging showing atelectasis and questionable COPD exacerbation. The patient was placed on aggressive pulmonary supportive management including bronchodilator therapy and Solu-Medrol. The patient initially received Levaquin in addition to DuoNeb and IV Solu-Medrol, stabilizing with pulmonary support. The patient transitioned off oxygen support, maintaining O2 saturations in the upper 90% range on room air. The patient transitioned to prednisone to complete a 5-day taper after discharge. Overall, the patient did remain clinically stable during the hospital course and tolerated regular oral intake. I have examined the patient at time of discharge and discussed followup instructions. The patient is ready for discharge on 07/31/2018. DISCHARGE MEDICATIONS: 1. Levaquin 750 mg 1 tablet p.o. daily x7 days. 2. Prednisone 20 mg 2 tablets p.o. daily x3 days, followed by 1 tablet p.o. daily x2 days. 3. Proventil HFA 2 puffs inhaled q.4 hours p.r.n. 4. Xanax 0.5 mg p.o. daily. 5. Calcium carbonate 1 tablet p.o. daily. 6. Lasix 40 mg p.o. daily. 7. Robitussin DM 10 mL p.o. q.6 hours p.r.n. 8. DuoNeb 3 mL nebulized q.4 hours p.r.n. 9. Magnesium oxide 400 mg p.o. daily. 10. Zofran 4 mg p.o. q.6 hours p.r.n. nausea, vomiting. 11. Potassium chloride 20 mEq p.o. daily. 12. Eliquis 2.5 mg p.o. b.i.d. 13. Cardizem CD 300 mg p.o. daily. FOLLOWUP: The patient may follow up with her primary care provider, Dr. Elizabeth Amaya at [facility]. CONDITION ON DISCHARGE: Fair. ACTIVITY: Ad-srinivasa. DIET: Regular. CODE STATUS: Do not attempt resuscitation. DISPOSITION: Discharged to [facility] on 07/31/2018. TIME SPENT: Total time in preparing and coordinating discharge is 31 minutes. Job ID: [id number]
== END 2018-07-31 14:37 | DRG 189 ==
LOC: ERS 16:35 → T4-B 19:17
PROVIDERS: ADMIT Hospitalist; ATTEND Hospitalist
DX: J96.21 Acute and chronic respiratory failure with hypoxia (principal); J44.1 Chronic obstructive pulmonary disease with (acute) exacerbation; J98.11 Atelectasis; I48.0 Paroxysmal atrial fibrillation; G30.9 Alzheimer's disease, unspecified; F02.80 Dementia in other diseases classified elsewhere, unspecified severity, without behavioral disturbance, psychotic disturbance, mood disturbance, and anxiety; E78.5 Hyperlipidemia, unspecified; I10 Essential (primary) hypertension; M19.90 Unspecified osteoarthritis, unspecified site; K59.00 Constipation, unspecified; F41.9 Anxiety disorder, unspecified; K21.9 Gastro-esophageal reflux disease without esophagitis; I48.2 Chronic atrial fibrillation; Z88.0 Allergy status to penicillin; Z79.01 Long term (current) use of anticoagulants; Z79.899 Other long term (current) drug therapy
CPT/HCPCS: 36415; 71045; 80048; 80053; 82553; 83880; 84484; 85025; 93005; 94640; 96365; 96367; J1956; J2920; J2930; J3475; J7512; J7620

== ENCOUNTER 2018-09-06 11:21 | Emergency (ER) | payer MEDICARE ==
[~2018-09-06 11:21] MED LIST: ISOVUE-370 76%-LOCM 1 ML ONE
--- NOTE | 2018-09-06 12:07 | RAD ---
PORTABLE CHEST 1 VIEW: Date: 09/06/18 Time: 1141 hours HISTORY: Shortness of breath. Wheezing. FINDINGS: Comparison made with exam of 07/26/18. Left-sided pacemaker device remains in place. The heart size is prominent but stable. There is contin ued elevation of the left hemidiaphragm. No lobar consolidation, pneumothoraces, patricia pulmonary crystal a, or pleural effusions are seen. IMPRESSION: No acute process. POS: GIOVANNI
[2018-09-06 12:09] LABS: #Eosinphils 0.1 thou/uL (0.0-0.7); #Lymphocytes 1.3 thou/uL (1.20-3.40); #Monocytes 0.7 thou/uL (0.11-0.59); #Neutrophils 5.7 thou/uL (1.40-6.50); %Basophils 0.6 % (0.0-1.0); %Eosinophils 1.5 % (0.0-10.0); %Lymphocytes 16.2 % (21.0-51.0); %Monocytes 8.5 % (0.0-10.0); %Neutrophils 73.2 % (42.0-75.0); Hemoglobin 13.1 g/dL (12.0-16.0); Mean Corpuscular HGB CONC 31.9 g/dL (32.0-36.0); Mean Corpuscular Hemoglobin 29.5 pg (27.0-31.0); Mean Corpuscular Volume 92.3 fL (78.0-98.0); Mean Platelet Volume 9.4 fL (7.4-10.4); Platelet Count 201 thou/uL (130-400); RBC Distribution Width 13.9 % (11.5-14.5); Red Blood Cell (RBC) Count 4.45 mill/uL (4.20-5.40); White Blood Cell (WBC) Count 7.8 thou/uL (4.8-10.8)
[2018-09-06 12:17] LABS: Bilirubin Negative (Negative); Blood, Urine Moderate (Negative); Glucose, Urine (Dipstick) Negative (Negative); Leukocyte Large (Negative); Nitrite Positive (Negative); Protein, Urine (Dipstick) 100 mg/dL (Neg-Trace); Urobilinogen 0.2 mg/dL (Less than 2)
[2018-09-06 12:19] LABS: Clarity Turbid (Clear)
[2018-09-06 12:28] LABS: WBC/HPF Greater Than 50 HPF (0-3)
[2018-09-06 12:30] LABS: Bacteria/HPF 4+ HPF (None Seen); Mucous/LPF 2+ LPF (<2+); Triple Phosphate Crystal 1+ HPF (None Seen)
[2018-09-06 12:43] LABS: ALT (SGPT) 11 U/L (8-55); AST (SGOT) 18 U/L (5-34); Albumin 3.8 g/dL (3.4-4.8); Alkaline Phosphatase 102 U/L (40-150); Anion Gap 14 mmol/L (10-20); BUN (Urea Nitrogen) 25 mg/dL (9.8-20.1); Bilirubin, Total 0.5 mg/dL (0.2-1.2); Calc. Creatinine Clearance 0 mL/min (70-130); Calcium 9.4 mg/dL (7.8-10.44); Carbon Dioxide 27 mmol/L (23-31); Chloride 103 mmol/L (98-107); Estimated GFR-MDRD 68; Globulin 2.4 g/dL (2.4-3.5); Glucose 105 mg/dL (83-110); Potassium 4.4 mmol/L (3.5-5.1); Protein, Total 6.2 g/dL (6.0-8.3); Sodium 140 mmol/L (136-145)
--- NOTE | 2018-09-06 13:04 | ULT ---
ULTRASOUND WITH DOPPLER DUPLEX VENOUS LOWER EXTREMITY LEFT: 09/06/18 HISTORY: 87-year-old female with left lower extremity edema. TECHNIQUE: Color flow Doppler, spectral waveform analysis of pulsed Doppler, and madden-scale imaging with mare shirley and augmentation, were used to evaluate the left common femoral, femoral, popliteal, posterior t ibial, and superficial femoral, veins; and the proximal portions of the profunda femoral and greater saphenous, veins. FINDINGS: There is edema in the superficial soft tissues throughout the left lower extremity. Complex cystic st ructure(s) in popliteal fossa suggestive of hemorrhagic Bowens's cyst. Unable to properly compress the mid and distal portions of the femoral vein due to patient's pain and intolerance. The posterior tibial vein is not visualized. There is normal compressibility and demonstration of flow by Doppler, in the common femoral, greater saphenous, profunda femoral, proximal femoral, and popliteal veins. IMPRESSION: 1. Unable to properly evaluate much of the femoral vein and the posterior tibial vein. 2. No evidence of deep venous thrombosis in the other major veins of the left lower extremity. 3. Soft tissue edema. 4. Evidence for hemorrhagic Bowens's cyst(s). LAVELL García POS: ELIZABETH
[2018-09-06 13:26] LABS: INR-International Normal Ratio 1.2; PTT 39.5 SEC (22.9-36.1); Prothrombin Time 15.3 SEC (12.0-14.7)
[2018-09-06] MEDS ORDERED: Lorazepam 2 MG/ML VIAL ONE (14:14)
[2018-09-06] MEDS ORDERED: Albuterol Sulfate 2.5 mg/3 ml Neb ONE (14:36)
--- NOTE | 2018-09-06 14:56 | CT ---
CT PULMONARY ANGIOGRAM WITH IV CONTRAST AND 3-D POSTPROCESSING: HISTORY:Shortness of breath FINDINGS: There is good contrast opacification of the central pulmonary arterial vasculature without filling de fects to suggest central pulmonary embolism. There is inadequate opacification of the peripheral branches of the pulmonary arteries. Peripheral pulmonary embolism cannot be excluded. The thoracic aorta is well opacified without aneurysm or dissection. No pleural or pericardial effusions are seen. There is elevation of the left hemidiaphragm with atele ctatic change at the left lung base. Mild atelectatic changes are also seen in the right lung base. No pneumothoraces, focal areas of consolidation or lung nodules are noted. There are degenerative changes in the spine. IMPRESSION: No CT evidence of central pulmonary embolism.
== END 2018-09-06 16:35 | disposition home or self-care (01) ==
LOC: ERS 11:21
DX: I89.0 Lymphedema, not elsewhere classified (principal); N39.0 Urinary tract infection, site not specified; M71.22 Synovial cyst of popliteal space [Baker], left knee; M71.21 Synovial cyst of popliteal space [Baker], right knee; I49.9 Cardiac arrhythmia, unspecified; I48.91 Unspecified atrial fibrillation; I10 Essential (primary) hypertension; E78.5 Hyperlipidemia, unspecified; G30.9 Alzheimer's disease, unspecified; F02.80 Dementia in other diseases classified elsewhere, unspecified severity, without behavioral disturbance, psychotic disturbance, mood disturbance, and anxiety; Z79.01 Long term (current) use of anticoagulants; Z79.899 Other long term (current) drug therapy
CPT/HCPCS: 36415; 71045; 71275; 80053; 81003; 81015; 83605; 83880; 84484; 85025; 85610; 85730; 87040; 87086; 87186; 93005; 94640; 94760; 96365; 96375; A4353; J1956; J2060; J7611; Q9966

== ENCOUNTER 2018-09-09 22:04 | Inpatient (IN) | payer MEDICARE ==
[2018-09-09] MEDS ORDERED: cefTRIAXone\\ROCEPHIN 2 GM VIAL ONE (22:50)
[2018-09-09 22:51] LABS: #Eosinphils 0.6 thou/uL (0.0-0.7); #Lymphocytes 0.8 thou/uL (1.20-3.40); #Monocytes 0.6 thou/uL (0.11-0.59); #Neutrophils 4.5 thou/uL (1.40-6.50); %Basophils 0.7 % (0.0-1.0); %Eosinophils 9.2 % (0.0-10.0); %Lymphocytes 12.9 % (21.0-51.0); %Monocytes 9.1 % (0.0-10.0); %Neutrophils 68.1 % (42.0-75.0); Hemoglobin 12.9 g/dL (12.0-16.0); Mean Corpuscular HGB CONC 32.5 g/dL (32.0-36.0); Mean Corpuscular Hemoglobin 30.3 pg (27.0-31.0); Mean Corpuscular Volume 93.4 fL (78.0-98.0); Mean Platelet Volume 9.2 fL (7.4-10.4); Platelet Count 152 thou/uL (130-400); RBC Distribution Width 14.1 % (11.5-14.5); Red Blood Cell (RBC) Count 4.26 mill/uL (4.20-5.40); White Blood Cell (WBC) Count 6.6 thou/uL (4.8-10.8)
[2018-09-09 22:57] LABS: Bilirubin Negative (Negative); Blood, Urine 1+ (Negative); Clarity Clear (Clear); Glucose, Urine (Dipstick) Normal (Negative); Leukocyte 250 Leu/uL (Negative); Nitrite Negative (Negative); Protein, Urine (Dipstick) 10 mg/dL (Neg-Trace); Urobilinogen Normal mg/dL (Less than 2); WBC/HPF 21-50 HPF (0-3)
[2018-09-09 22:58] LABS: Bacteria/HPF 1+ HPF (None Seen)
[2018-09-09 23:12] LABS: ALT (SGPT) 12 U/L (8-55); AST (SGOT) 19 U/L (5-34); Albumin 3.9 g/dL (3.4-4.8); Alkaline Phosphatase 101 U/L (40-150); Anion Gap 12 mmol/L (10-20); BUN (Urea Nitrogen) 22 mg/dL (9.8-20.1); Bilirubin, Total 0.5 mg/dL (0.2-1.2); Calc. Creatinine Clearance 0 mL/min (70-130); Calcium 9.6 mg/dL (7.8-10.44); Carbon Dioxide 27 mmol/L (23-31); Chloride 105 mmol/L (98-107); Estimated GFR-MDRD 66; Globulin 2.8 g/dL (2.4-3.5); Glucose 106 mg/dL (83-110); Potassium 4.1 mmol/L (3.5-5.1); Protein, Total 6.7 g/dL (6.0-8.3); Sodium 140 mmol/L (136-145)
--- NOTE | 2018-09-09 23:24 | RAD ---
EXAM: CHEST ONE VIEW: 09/09/18 HISTORY: Cough. Urinary tract infection. COMPARISON: 09/06/18. FINDINGS: Prominent left hemidiaphragm elevation. Left ICD. Borderline cardiomegaly. Mild bilateral vascular co ngestion. Significant bony demineralization. No confluent pneumonia. IMPRESSION: Mild vascular congestion with borderline heart size. Left ICD. No evidence for other significant acut e process. Stable appearance from prior study. POS: ELIZABETH
[2018-09-10] MEDS ORDERED: Acetaminophen 650 MG Suppository PR PRN (01:33)
[2018-09-10] MEDS ORDERED: Ondansetron ODT 4 MG TAB PO PRN ×2 (01:33→05:45)
[2018-09-10] MEDS ORDERED: Ondansetron PF 4 MG/2 ML Vial IVP PRN (01:33)
[2018-09-10] MEDS ORDERED: Acetaminophen 325 MG TAB PO PRN (01:33)
--- NOTE | 2018-09-10 05:21 | HP ---
PRIMARY CARE PHYSICIAN: Elizabeth Amaya MD CODE STATUS: Full code, has not been verified as a DNR. CHIEF COMPLAINT: Change in mental status. HISTORY OF PRESENT ILLNESS: This is an 87-year-old female patient with past medical history of dementia, recent admission due to sepsis, was discharged due to UTI and the cultures were resulted and showed that the patient had gone on Levaquin and the culture was positive for Proteus that is resistant to Levaquin. For that reason , the patient was recalled for treatment of the UTI. The patient has underlying dementia and I cannot obtain any information from the patient and much has been gathered from records. Symptoms were moderate. Unable to establish the onset of the symptoms. No clear triggers. No alleviating factors. REVIEW OF SYSTEMS: Unable to obtain. The patient has dementia. PAST MEDICAL HISTORY: Positive for atrial fibrillation, status post pacemaker, hyperlipidemia, high cholesterol, hypertension, Alzheimer's disease, lower GI hemorrhage. PAST SURGICAL HISTORY: PPM. PSYCHIATRIC HISTORY: Dementia, Alzheimer's. SOCIAL HISTORY: No alcohol. No drugs. No smoking history. FAMILY HISTORY: Reviewed and noncontributory to current presentation. KNOWN ALLERGIES: Penicillin. REPORTED MEDICATIONS: 1. Alprazolam. 2. Calcium D. 3. Cardizem LA. 4. Eliquis. 5. Lasix. 6. Guaifenesin. 7. Ipratropium. 8. Lamisil. 9. Magnesium oxide. 10. Potassium chloride. 11. Proventil. 12. Levaquin. PHYSICAL EXAMINATION: VITAL SIGNS: On presentation, respiratory rate was 20, temperature 98.4, pain was 0, and oxygen saturation 94% on room air, blood pressure is 113/67 with heart rate 82. GENERAL APPEARANCE: The patient is alert, disoriented due to dementia, not in acute distress. HEENT: Eyes, normal conjunctivae. Moist oral mucosa. Anicteric. No JVD. RESPIRATORY: The patient has bilateral air entry. There is some wheezing. No rales. Symmetric expansion. CARDIOVASCULAR: Normal rate. Regular rhythm. No murmurs. No gallop. No edema. ABDOMEN: Soft, normal bowel sounds. MUSCULOSKELETAL: Baseline range of motion and strength. SKIN: Warm, intact. No pallor. No rash. No redness. The patient has some redness in the lower extremities that seems to be chronic. NEUROLOGIC: The patient is confused, unable to fully explore. Does not follow command properly. PSYCHIATRIC: The patient has underlying dementia. IMAGING STUDIES: Chest x-ray was reviewed. Mild vascular congestion with borderline heart size, did have ICD. No evidence of other significant acute process. Stable appearance from prior study. LABORATORY DATA: Labs were reviewed. The patient has white count 6.6, hemoglobin 12.9, MCV 93.4, platelet count 152. Chemistry; sodium 140, potassium 4.1, chloride 105, carbon dioxide 27, anion gap 12, BUN 22, creatinine 0.8, GFR 66, glucose 106, lactic acid 1, calcium 9.6, total bilirubin 0.5. LFTs were negative. Albumin 3.9. Urine was done and the patient has white count of 21 to 50. Urine culture prior to discharge was reviewed. The patient has positive more than 100 units forming colonies of Proteus mirabilis that is resistant to Levaquin and sensitive to the rest of the antibiotics. ASSESSMENT AND PLAN: The patient will be placed in the hospital with following medical problems: 1. Urinary tract infection. 2. Proteus mirabilis resistant to Levaquin. We will place the patient on Rocephin as per sensitivity. 3. Possible acute encephalopathy. The patient has underlying dementia. It is very difficult to know what the baseline is. We will monitor, we will give assistance. If present, this is likely secondary to underlying urinary tract infection with sepsis. 4. History of atrial fibrillation, status post pacemaker, rate is in control. We will reconcile home medications, we will adjust as needed. 5. History of reportedly chronic obstructive pulmonary disease. Reconcile home medications. 6. Possible underlying congestive heart failure with preserved ejection fraction. Reportedly, the patient has a history of cardiomyopathy, we will monitor fluid balance, we will reconcile home medications. 7. Hyperlipidemia. Low-cholesterol diet is advised. Reconcile home medications. 8. Deep venous thrombosis prophylaxis. Job ID: [id number] [facility]
[2018-09-10] MEDS ORDERED: guaiFENesin/Dextromethorphan 10 ML UDCUP PO PRN (05:45)
[2018-09-10] MEDS ORDERED: Loperamide HCl 2 MG CAP PO PRN (05:45)
[2018-09-10 05:47] LABS: #Eosinphils 0.5 thou/uL (0.0-0.7); #Lymphocytes 0.9 thou/uL (1.20-3.40); #Monocytes 0.7 thou/uL (0.11-0.59); #Neutrophils 3.3 thou/uL (1.40-6.50); %Basophils 0.5 % (0.0-1.0); %Eosinophils 9.8 % (0.0-10.0); %Lymphocytes 16.4 % (21.0-51.0); %Monocytes 13.3 % (0.0-10.0); Mean Corpuscular HGB CONC 31.8 g/dL (32.0-36.0); Mean Corpuscular Hemoglobin 29.9 pg (27.0-31.0); Mean Corpuscular Volume 94.1 fL (78.0-98.0); Mean Platelet Volume 9.6 fL (7.4-10.4); Platelet Count 137 thou/uL (130-400); RBC Distribution Width 14.1 % (11.5-14.5); Red Blood Cell (RBC) Count 4.02 mill/uL (4.20-5.40); White Blood Cell (WBC) Count 5.6 thou/uL (4.8-10.8)
[2018-09-10 06:09] LABS: Anion Gap 12 mmol/L (10-20); BUN (Urea Nitrogen) 20 mg/dL (9.8-20.1); Calc. Creatinine Clearance 82 mL/min (70-130); Calcium 9.2 mg/dL (7.8-10.44); Carbon Dioxide 25 mmol/L (23-31); Chloride 107 mmol/L (98-107); Estimated GFR-MDRD 73; Glucose 83 mg/dL (83-110); Potassium 4.2 mmol/L (3.5-5.1); Sodium 140 mmol/L (136-145)
--- NOTE | 2018-09-10 06:18 | PDOC.EVN ---
Event Note - Event Note Event Note: Pt has an outpatient DNR/DNI but I hwas unable to verify status, with Mrs Dayna Cortes @ [phone], just left voice mail, seems that this is the only family member of this patient.
[2018-09-10] MEDS ORDERED: Furosemide 40 MG TAB PO SCH (09:00)
[2018-09-10] MEDS ORDERED: Prevnar 13-Val Conj/PF 0.5 ML SYRINGE IM ONE (09:00)
[2018-09-10] MEDS: Potassium Chloride 20 MEQ TAB PO SCH (09:57)
[2018-09-10] MEDS: Apixaban 2.5 MG TAB PO SCH ×2 (09:57→21:04)
[2018-09-10] MEDS: Diltiazem HCl CD 300 mg Capsule PO SCH (09:57)
[2018-09-10] MEDS: Calcium Carbonate + Vit D 1 TAB PO SCH (09:58)
[2018-09-10] MEDS: ALPRAZolam 0.5 MG TAB PO SCH (09:58)
[2018-09-10] MEDS: Magnesium Oxide 400 MG TAB PO SCH (09:58)
[2018-09-10] MEDS ORDERED: Vancomycin HCl 1 GM in Premix Bag 1 BAG IVPB SCH (18:00)
--- NOTE | 2018-09-10 18:13 | PDOC.HOSPP ---
- Subjective Subjective: f/u for UTI, AMS, dyspnea with bacteremia with Enterococcus spp. Currently receiving Rocephin. - Objective Vital Signs & Weight: Vital Signs (12 hours) Temp Pulse Resp BP Pulse Ox 09/10/18 15:20 92 20 09/10/18 15:00 97.6 F 87 22 H 117/64 95 09/10/18 10:49 97.6 F 67 20 106/61 96 09/10/18 09:57 82 09/10/18 07:30 97.5 F L 105 H 20 133/63 93 L Weight Weight 213 lb 11.2 oz I&O: 09/09/18 09/10/18 09/11/18 06:59 06:59 06:59 Intake Total 120 Balance 120 Result Diagrams: 09/10/18 05:14 09/10/18 05:14 Additional Labs: Microbiology 09/06/18 11:40 Urine Straight Catheter Urine Culture - Final Proteus mirabilis 09/09/18 23:03 Venous blood - Left Arm Blood Culture - Preliminary Specimen has been received and culture in progress. No Growth to date. 09/09/18 22:46 Urine Straight Catheter Urine Culture - Preliminary 09/09/18 22:42 Venous blood - Left Hand Blood Culture - Preliminary Enterococcus faecalis 09/06/18 12:40 Venous blood - Right Arm Blood Culture - Preliminary NO GROWTH AT 48 HOURS 09/06/18 11:54 Venous blood - Left Arm Blood Culture - Preliminary NO GROWTH AT 48 HOURS Radiology Reviewed by me: Yes (PCXR - mild pulm vasc prominence) ROS - Review of Systems All systems: All other ROS were reviewed and found negative. - Medication Medications: Active Medications Generic Name Dose Route Start Last Admin Trade Name Freq PRN Reason Stop Dose Admin Alprazolam 0.5 mg 09/10/18 09:00 09/10/18 09:58 Xanax PO 0.5 mg DAILY ELINA Administration Apixaban 2.5 mg 09/10/18 09:00 09/10/18 09:57 Eliquis PO 2.5 mg BID ELINA Administration Calcium/Vitamin D 1 tab 09/10/18 09:00 09/10/18 09:58 Caltrate 600 + Vit D PO 1 tab DAILY ELINA Administration Diltiazem HCl 300 mg 09/10/18 09:00 09/10/18 09:57 Cardizem Cd PO 300 mg DAILY ELINA Administration Furosemide 40 mg 09/10/18 09:00 09/10/18 09:58 Lasix PO 40 mg DAILY ELINA Administration Magnesium Oxide 400 mg 09/10/18 09:00 09/10/18 09:58 Magnesium Oxide PO 400 mg DAILY ELINA Administration Potassium Chloride 20 meq 09/10/18 09:00 09/10/18 09:57 K-Dur PO 20 meq DAILY ELINA Administration - Exam awake alert, ill appearing Eye: PERRL, anicteric sclera ENT: normocephalic atraumatic, no oropharyngeal lesions Neck: supple, symmetric, no JVD, no Thyromegaly Heart: RRR, no murmur, no gallops, no rubs Respiratory: rhonchi, wheezes Gastrointestinal: soft, non-tender, non-distended, normal bowel sounds Extremities: 2+ LE edema (erythema to forehead, chest and upper extremities) Skin: normal turgor Neurological: no new deficit Musculoskeletal: generalized weakness Psychiatric: oriented to person Hosp A/P (1) Bacteremia due to Enterococcus Code(s): R78.81 - BACTEREMIA; B95.2 - ENTEROCOCCUS THE CAUSE OF DISEASES CLASSIFIED ELSEWHERE Status: Acute Plan: Enterococcus spp on 02/08 blood cx, start Vancomycin 1gm IV q12h, await final sensitivities, exact source unclear (2) UTI (urinary tract infection) Status: Acute Plan: Suspected, recent Ucx with Proteus spp, continue Vancomycin, add Cefepime (3) Acute and chronic respiratory failure with hypoxia Code(s): J96.21 - ACUTE AND CHRONIC RESPIRATORY FAILURE WITH HYPOXIA Status: Acute Plan: Add Lasix 20mg IV x 1 now then daily, Duonebs q4h scheduled, Dulera 2puffs BID, O2 prn (4) Alzheimer's dementia Code(s): G30.9 - ALZHEIMER'S DISEASE, UNSPECIFIED; F02.80 - DEMENTIA IN OTH DISEASES CLASSD ELSWHR W/O BEHAVRL DISTURB Status: Chronic Plan: Supportive mgmt (5) Anxiety and depression Code(s): F41.9 - ANXIETY DISORDER, UNSPECIFIED; F32.9 - MAJOR DEPRESSIVE DISORDER, SINGLE EPISODE, UNSPECIFIED Status: Chronic Plan: Continue Xanax daily - Plan continue antibiotics, manager social services, respiratory therapy, DVT proph w/SCDs Continue supportive mgmt Add Vancomycin IV due to Enterococcus bacteremia Change to Cefepime 1gm IV BID Add Lasix 20mg IV daily Add Dulera AM lab: BMP
[2018-09-10] MEDS ORDERED: diphenhydrAMINE 25 MG in Sodium Chloride 0.9% 50 ML IVPB PRN (18:14)
[2018-09-10] MEDS ORDERED: Furosemide 20 MG/2 ML VIAL SLOW IVP SCH ×2 (18:15→23:30)
[2018-09-10] MEDS: Mometasone/Formoterol 120 PUFF INHALER INH SCH (19:27)
[2018-09-10] MEDS ORDERED: Cefepime 1 GM in Sodium Chloride 0.9% 100 ML IVPB SCH (20:00)
[2018-09-10] MEDS: Vancomycin HCl 1 GM in Premix Bag 1 BAG IVPB SCH (22:06)
[2018-09-10] MEDS ORDERED: cefTRIAXone\\ROCEPHIN 1 GM in Sodium Chloride 0.9% 100 ML IVPB SCH (23:00)
[2018-09-10] MEDS: diphenhydrAMINE 50 MG/ML VIAL IVP PRN (23:34)
[2018-09-11 06:33] LABS: Anion Gap 10 mmol/L (10-20); BUN (Urea Nitrogen) 17 mg/dL (9.8-20.1); Calc. Creatinine Clearance 74 mL/min (70-130); Calcium 9.1 mg/dL (7.8-10.44); Carbon Dioxide 32 mmol/L (23-31); Chloride 104 mmol/L (98-107); Estimated GFR-MDRD 64; Glucose 93 mg/dL (83-110); Potassium 3.9 mmol/L (3.5-5.1); Sodium 142 mmol/L (136-145)
[2018-09-11] MEDS: diphenhydrAMINE 50 MG/ML VIAL IVP PRN ×2 (06:44→19:45)
[2018-09-11] MEDS: Mometasone/Formoterol 120 PUFF INHALER INH SCH ×2 (07:28→18:27)
[2018-09-11] MEDS ORDERED: Furosemide 20 MG/2 ML VIAL SLOW IVP SCH (09:00)
[2018-09-11] MEDS: Apixaban 2.5 MG TAB PO SCH ×2 (09:21→19:53)
[2018-09-11] MEDS: Calcium Carbonate + Vit D 1 TAB PO SCH (09:21)
[2018-09-11] MEDS: Diltiazem HCl CD 300 mg Capsule PO SCH (09:21)
[2018-09-11] MEDS: ALPRAZolam 0.5 MG TAB PO SCH (09:21)
[2018-09-11] MEDS: Magnesium Oxide 400 MG TAB PO SCH (09:21)
[2018-09-11] MEDS: Potassium Chloride 20 MEQ TAB PO SCH (09:21)
--- NOTE | 2018-09-11 09:35 | PDOC.HOSPP ---
- Subjective Subjective: f/u for acute/chronic hypoxic resp failure, volume overload, COPD. Received IV Lasix and Duonebs with some improvement. - Objective Vital Signs & Weight: Vital Signs (12 hours) Temp Pulse Resp BP Pulse Ox 09/11/18 07:23 78 22 H 98 09/11/18 07:22 97.7 F 78 22 H 122/75 98 09/11/18 04:06 97.7 F 100 20 109/70 95 09/11/18 02:47 88 20 100 09/10/18 23:56 97.7 F 84 18 130/81 98 09/10/18 22:48 22 H 95 Weight Weight 213 lb 11.2 oz I&O: 09/10/18 09/11/18 09/12/18 06:59 06:59 06:59 Intake Total 1190 Balance 1190 Result Diagrams: 09/10/18 05:14 09/11/18 05:52 Additional Labs: Microbiology 09/06/18 11:40 Urine Straight Catheter Urine Culture - Final Proteus mirabilis 09/09/18 23:03 Venous blood - Left Arm Blood Culture - Preliminary Specimen has been received and culture in progress. No Growth to date. 09/09/18 22:46 Urine Straight Catheter Urine Culture - Preliminary 09/09/18 22:42 Venous blood - Left Hand Blood Culture - Preliminary Enterococcus faecalis 09/06/18 12:40 Venous blood - Right Arm Blood Culture - Preliminary NO GROWTH AT 48 HOURS 09/06/18 11:54 Venous blood - Left Arm Blood Culture - Preliminary NO GROWTH AT 48 HOURS ROS - Review of Systems All systems: All other ROS were reviewed and found negative. - Medication Medications: Active Medications Generic Name Dose Route Start Last Admin Trade Name Freq PRN Reason Stop Dose Admin Albuterol/Ipratropium 3 ml 09/10/18 18:30 09/11/18 07:23 Duoneb NEB 3 ml [id number] ELINA Administration Alprazolam 0.5 mg 09/10/18 09:00 09/11/18 09:21 Xanax PO 0.5 mg DAILY ELINA Administration Apixaban 2.5 mg 09/10/18 09:00 09/11/18 09:21 Eliquis PO 2.5 mg BID ELINA Administration Calcium/Vitamin D 1 tab 09/10/18 09:00 09/11/18 09:21 Caltrate 600 + Vit D PO 1 tab DAILY ELINA Administration Diltiazem HCl 300 mg 09/10/18 09:00 09/11/18 09:21 Cardizem Cd PO 300 mg DAILY ELINA Administration Diphenhydramine HCl 25 mg 09/10/18 23:25 09/11/18 06:44 Benadryl IVP 25 mg Q6H PRN Administration Itching & Insomnia Furosemide 20 mg 09/11/18 09:00 09/11/18 09:22 Lasix SLOW IVP 20 mg DAILY ELINA Administration Vancomycin HCl 1 gm/ Device 200 mls @ 200 mls/hr 09/10/18 22:00 09/10/18 22: 06 IVPB 200 mls 1000,2200 ELINA Administration Cefepime HCl 1 gm/ Sodium 100 mls @ 200 mls/hr 09/10/18 23:00 09/11/18 00:00 Chloride IVPB 100 mls 1100,2300 ELINA Administration Magnesium Oxide 400 mg 09/10/18 09:00 09/11/18 09:21 Magnesium Oxide PO 400 mg DAILY ELINA Administration Mometasone Furoate/Formoterol Fumar 2 puff 09/10/18 18:30 09/11/18 07:28 Dulera 200 Mcg/5 Mcg Inhaler INH 2 puff BID-RT ELINA Administration Potassium Chloride 20 meq 09/10/18 09:00 09/11/18 09:21 K-Dur PO 20 meq DAILY ELINA Administration - Exam awake alert, ill appearing Eye: PERRL, anicteric sclera ENT: normocephalic atraumatic, no oropharyngeal lesions Neck: supple, symmetric, no JVD, no Thyromegaly Heart: RRR, no murmur, no gallops, no rubs Respiratory: rales, rhonchi, tachypneic, wheezes Gastrointestinal: soft, non-tender, non-distended, normal bowel sounds (obese) Extremities: no cyanosis, 2+ LE edema Skin: normal turgor Musculoskeletal: generalized weakness Psychiatric: oriented to person, somnolent Hosp A/P (1) Bacteremia due to Enterococcus Code(s): R78.81 - BACTEREMIA; B95.2 - ENTEROCOCCUS THE CAUSE OF DISEASES CLASSIFIED ELSEWHERE Status: Acute Plan: Continue Vancomycin pending final sensitivities, afebrile currently (2) UTI (urinary tract infection) Status: Acute Plan: Suspected but Ucx unrevealing for dominant organism, continue Cefepime (3) Acute and chronic respiratory failure with hypoxia Code(s): J96.21 - ACUTE AND CHRONIC RESPIRATORY FAILURE WITH HYPOXIA Status: Acute Plan: Multifactorial including volume overload and COPD, continue Duonebs, Add Solumedrol 40mg IV q6h, Lasix 20mg IV BID, Dulera BID (4) Alzheimer's dementia Code(s): G30.9 - ALZHEIMER'S DISEASE, UNSPECIFIED; F02.80 - DEMENTIA IN OTH DISEASES CLASSD ELSWHR W/O BEHAVRL DISTURB Status: Chronic (5) Anxiety and depression Code(s): F41.9 - ANXIETY DISORDER, UNSPECIFIED; F32.9 - MAJOR DEPRESSIVE DISORDER, SINGLE EPISODE, UNSPECIFIED Status: Chronic Plan: Continue Xanax daily - Plan continue antibiotics, social media content specialist, speech therapy, respiratory therapy, DVT proph w/SCDs Continue pulmonary supportive measures Add Solumedrol 40mg IV q6h Change Lasix 20mg IV BID Continue Cefepime/Vancomycin pending final sensitivities MATERIAL INSPECTOR evaluation for ? dysphagia
[2018-09-11] MEDS: Vancomycin HCl 1 GM in Premix Bag 1 BAG IVPB SCH ×2 (09:49→21:52)
[2018-09-11] MEDS: Cefepime 1 GM in Sodium Chloride 0.9% 100 ML IVPB SCH ×2 (11:33)
[2018-09-11] MEDS: methylPREDNISolone Sod Succ 40 MG VIAL IVP SCH ×2 (11:33→17:52)
[2018-09-11] MEDS: Furosemide 20 MG/2 ML VIAL SLOW IVP SCH (20:29)
[2018-09-12] MEDS: Cefepime 1 GM in Sodium Chloride 0.9% 100 ML IVPB SCH ×2 (00:13→11:07)
[2018-09-12] MEDS: methylPREDNISolone Sod Succ 40 MG VIAL IVP SCH ×5 (02:33→23:10)
[2018-09-12] MEDS: diphenhydrAMINE 50 MG/ML VIAL IVP PRN ×2 (04:27→21:35)
[2018-09-12] MEDS ORDERED: Furosemide 20 MG/2 ML VIAL SLOW IVP SCH (04:30)
[2018-09-12] MEDS: Mometasone/Formoterol 120 PUFF INHALER INH SCH ×2 (07:12→18:33)
[2018-09-12] MEDS: Vancomycin HCl 1 GM in Premix Bag 1 BAG IVPB SCH ×2 (09:35→21:35)
[2018-09-12] MEDS: Furosemide 20 MG/2 ML VIAL SLOW IVP SCH ×2 (09:35→20:09)
[2018-09-12] MEDS: Potassium Chloride 20 MEQ TAB PO SCH (11:25)
[2018-09-12] MEDS: Magnesium Oxide 400 MG TAB PO SCH (11:25)
[2018-09-12] MEDS: Diltiazem HCl CD 300 mg Capsule PO SCH (11:26)
[2018-09-12] MEDS: Calcium Carbonate + Vit D 1 TAB PO SCH (11:26)
[2018-09-12] MEDS: ALPRAZolam 0.5 MG TAB PO SCH (11:26)
[2018-09-12] MEDS: Apixaban 2.5 MG TAB PO SCH ×2 (11:26→21:01)
--- NOTE | 2018-09-12 16:07 | PQF ---
CLINICAL DOCUMENTATION IMPROVEMENT CLARIFICATION FORM: ICD-10 Updated PLEASE DO AN ADDENDUM TO THE PROGRESS NOTE WITH ANY DOCUMENTATION UPDATES OR ADDITIONS AND CARRY THROUGH TO DC SUMMARY. THANK YOU. DATE: 09/12/2018 ATTN: Dr. Urena Please exercise your independent, professional judgment in responding to the clarification form. Clinical indicators are provided on the bottom of this form for your review Please check appropriate box(s) to clarify if the following diagnosis has been ruled in or ruled out: SEPSIS . [ ] Ruled in diagnosis [ ] Continue to treat [ ] Resolved [ x ] Ruled out diagnosis [ ] Cannot rule out diagnosis [ ] Other diagnosis [ ] Unable to determine In addition, please specify: Present on Admission (POA): [ ] Yes [ x ] No [ ] Unable to determine For continuity of documentation, please document condition throughout progress notes and discharge summary. Thank You. CLINICAL INDICATORS - SIGNS / SYMPTOMS / LABS H&P 8/: Possible acute encephalopathy. The pt has underlying dementia. If present, this is likely secondary to underlying urinary tract infection with sepsis. PN 8/: Bacteremia due to Enterococcus. UTI. Suspected Ucx with Proteus spp Acute and chronic respiratory failure with hypoxia RISKS: H&P: 87 yo, recent admission due to sepsis, was discharged due to UTI and cultures were resulted and showed that pt had gone on Levaquin, and culture was positive for Proteus that is resistant to Levaquin. Dementia, Alzheimer's TREATMENT: MAR: Order 09/10: Vancomycin IV MAR: Order 09/10: Cefepime 1 gm Thank you, Andie (This form is maintained as a part of the permanent medical record) 2014 [employer]. All Rights Reserved Andie Orosco RN, BSN [email or web address] Office: [phone] [facility]
--- NOTE | 2018-09-12 17:58 | PDOC.HOSPP ---
- Subjective Subjective: f/u for enterococcus bacteremia on Vancomycin. No new issues reported per nursing. - Objective Vital Signs & Weight: Vital Signs (12 hours) Temp Pulse Resp BP Pulse Ox 09/12/18 15:14 97.8 F 70 16 100/55 L 97 09/12/18 14:37 72 22 H 92 L 09/12/18 11:55 97.6 F 81 22 H 118/69 93 L 09/12/18 10:36 87 24 H 92 L 09/12/18 07:24 98 F 81 21 H 123/63 93 L 09/12/18 07:08 82 20 93 L Weight Weight 213 lb 11.2 oz I&O: 09/11/18 09/12/18 09/13/18 06:59 06:59 06:59 Intake Total 1190 0 350 Output Total 3 Balance 1190 0 347 Result Diagrams: 09/10/18 05:14 09/11/18 05:52 Additional Labs: Microbiology 09/09/18 22:46 Urine Straight Catheter Urine Culture - Final 09/09/18 22:42 Venous blood - Left Hand Blood Culture - Final Enterococcus faecalis 09/06/18 11:40 Urine Straight Catheter Urine Culture - Final Proteus mirabilis 09/09/18 23:03 Venous blood - Left Arm Blood Culture - Preliminary Specimen has been received and culture in progress. No Growth to date. 09/09/18 23:03 Venous blood - Left Arm Blood Culture - Preliminary NO GROWTH AT 48 HOURS 09/09/18 22:46 Urine Straight Catheter Urine Culture - Preliminary 09/09/18 22:42 Venous blood - Left Hand Blood Culture - Preliminary Enterococcus faecalis 09/06/18 12:40 Venous blood - Right Arm Blood Culture - Preliminary NO GROWTH AT 48 HOURS 09/06/18 11:54 Venous blood - Left Arm Blood Culture - Preliminary NO GROWTH AT 48 HOURS ROS - Review of Systems All systems: All other ROS were reviewed and found negative. - Medication Medications: Active Medications Generic Name Dose Route Start Last Admin Trade Name Freq PRN Reason Stop Dose Admin Albuterol/Ipratropium 3 ml 09/10/18 18:30 09/12/18 14:37 Duoneb NEB 3 ml [id number] ELINA Administration Alprazolam 0.5 mg 09/10/18 09:00 09/12/18 11:26 Xanax PO 0.5 mg DAILY ELINA Administration Apixaban 2.5 mg 09/10/18 09:00 09/12/18 11:26 Eliquis PO 2.5 mg BID ELINA Administration Calcium/Vitamin D 1 tab 09/10/18 09:00 09/12/18 11:26 Caltrate 600 + Vit D PO Not Given DAILY ELINA Diltiazem HCl 300 mg 09/10/18 09:00 09/12/18 11:26 Cardizem Cd PO 300 mg DAILY ELINA Administration Diphenhydramine HCl 25 mg 09/10/18 23:25 09/12/18 04:27 Benadryl IVP 25 mg Q6H PRN Administration Itching & Insomnia Furosemide 20 mg 09/11/18 21:00 09/12/18 09:35 Lasix SLOW IVP 20 mg BID ELINA Administration Vancomycin HCl 1 gm/ Device 200 mls @ 200 mls/hr 09/10/18 22:00 09/12/18 09: 35 IVPB 200 mls 1000,2200 ELINA Administration Cefepime HCl 1 gm/ Sodium 100 mls @ 200 mls/hr 09/10/18 23:00 09/12/18 11:07 Chloride IVPB 100 mls 1100,2300 ELINA Administration Magnesium Oxide 400 mg 09/10/18 09:00 09/12/18 11:25 Magnesium Oxide PO 400 mg DAILY ELINA Administration Methylprednisolone Sodium Succinate 40 mg 09/11/18 12:00 09/12/18 12:35 Solu-Medrol IVP 40 mg Q6HR ELINA Administration Mometasone Furoate/Formoterol Fumar 2 puff 09/10/18 18:30 09/12/18 07:12 Dulera 200 Mcg/5 Mcg Inhaler INH Not Given BID-RT ELINA Potassium Chloride 20 meq 09/10/18 09:00 09/12/18 11:25 K-Dur PO 20 meq DAILY ELINA Administration Sodium Chloride 10 ml 09/11/18 21:00 09/12/18 09:36 Flush - Normal Saline IVF Not Given Q12HR ELINA - Exam NAD, awake alert Eye: PERRL, anicteric sclera ENT: normocephalic atraumatic, no oropharyngeal lesions Neck: supple, symmetric, no JVD, no Thyromegaly Heart: RRR, no murmur, no gallops, no rubs Respiratory: CTAB, no rales, rhonchi Gastrointestinal: soft, non-tender, non-distended, normal bowel sounds, no palpable masses Extremities: no cyanosis, 1+ LE edema, 2+ LE edema Skin: normal turgor Neurological: CN's grossly intact, no new deficit Hosp A/P (1) Bacteremia due to Enterococcus Code(s): R78.81 - BACTEREMIA; B95.2 - ENTEROCOCCUS THE CAUSE OF DISEASES CLASSIFIED ELSEWHERE Status: Acute Plan: 1 of 2 blood cx +, continue Vancomycin another 24h then convert to po option, d/ c Cefepime (2) UTI (urinary tract infection) Status: Acute Plan: UCx negative currently, d/c Cefepime (3) Acute and chronic respiratory failure with hypoxia Code(s): J96.21 - ACUTE AND CHRONIC RESPIRATORY FAILURE WITH HYPOXIA Status: Acute Plan: Continue pulm supportive mgmt, O2 prn (4) Alzheimer's dementia Code(s): G30.9 - ALZHEIMER'S DISEASE, UNSPECIFIED; F02.80 - DEMENTIA IN OTH DISEASES CLASSD ELSWHR W/O BEHAVRL DISTURB Status: Chronic (5) Anxiety and depression Code(s): F41.9 - ANXIETY DISORDER, UNSPECIFIED; F32.9 - MAJOR DEPRESSIVE DISORDER, SINGLE EPISODE, UNSPECIFIED Status: Chronic - Plan continue antibiotics, social sciences chair, respiratory therapy, DVT proph w/SCDs Stable currently Continue Vancomycin another 24h Titrate IV Lasix Trial po intake Likely back to SNF in 24-48h
[2018-09-13] MEDS ORDERED: Ziprasidone 20 MG VIAL IM SCH (02:00)
[2018-09-13] MEDS ORDERED: Sterile Water 10 ML VIAL FS PRN (02:03)
[2018-09-13] MEDS: diphenhydrAMINE 50 MG/ML VIAL IVP PRN ×2 (03:14→19:42)
[2018-09-13] MEDS: methylPREDNISolone Sod Succ 40 MG VIAL IVP SCH ×4 (05:49→23:14)
[2018-09-13] MEDS: Mometasone/Formoterol 120 PUFF INHALER INH SCH ×2 (07:42→19:09)
[2018-09-13] MEDS: Vancomycin HCl 1 GM in Premix Bag 1 BAG IVPB SCH ×2 (09:15→22:43)
[2018-09-13] MEDS: Furosemide 20 MG/2 ML VIAL SLOW IVP SCH (09:15)
[2018-09-13] MEDS: ALPRAZolam 0.5 MG TAB PO SCH (09:41)
[2018-09-13] MEDS: Apixaban 2.5 MG TAB PO SCH ×2 (09:42→19:42)
[2018-09-13] MEDS: Calcium Carbonate + Vit D 1 TAB PO SCH (09:42)
[2018-09-13] MEDS: Potassium Chloride 20 MEQ TAB PO SCH (09:43)
[2018-09-13] MEDS: Diltiazem HCl CD 300 mg Capsule PO SCH (09:43)
[2018-09-13] MEDS: Magnesium Oxide 400 MG TAB PO SCH (09:43)
--- NOTE | 2018-09-13 11:42 | PDOC.HOSPP ---
- Subjective Encounter Date: 09/13/18 Encounter Time: 11:30 Subjective: f/u for enterococcus bacteremia on Vancomycin. Stable per nursing but NPO pending [employer] re-evaluation for dysphagia. - Objective Vital Signs & Weight: Vital Signs (12 hours) Temp Pulse Resp BP Pulse Ox 09/13/18 11:12 97.2 F L 77 16 106/77 95 09/13/18 10:45 70 18 97 09/13/18 09:43 64 09/13/18 08:00 97.6 F 64 20 122/93 H 98 09/13/18 07:41 87 16 93 L 09/13/18 04:56 97.5 F L 83 20 139/61 93 L 09/13/18 02:23 90 20 93 L 09/13/18 00:00 98.4 F 91 20 98/91 H 93 L Weight Weight 213 lb 11.2 oz I&O: 09/12/18 09/13/18 09/14/18 06:59 06:59 06:59 Intake Total 0 450 Output Total 3 Balance 0 447 Result Diagrams: 09/10/18 05:14 09/11/18 05:52 Additional Labs: Microbiology 09/09/18 22:46 Urine Straight Catheter Urine Culture - Final 09/09/18 22:42 Venous blood - Left Hand Blood Culture - Final Enterococcus faecalis 09/06/18 11:40 Urine Straight Catheter Urine Culture - Final Proteus mirabilis 09/09/18 23:03 Venous blood - Left Arm Blood Culture - Preliminary Specimen has been received and culture in progress. No Growth to date. 09/09/18 23:03 Venous blood - Left Arm Blood Culture - Preliminary NO GROWTH AT 48 HOURS 09/09/18 22:46 Urine Straight Catheter Urine Culture - Preliminary 09/09/18 22:42 Venous blood - Left Hand Blood Culture - Preliminary Enterococcus faecalis 09/06/18 12:40 Venous blood - Right Arm Blood Culture - Preliminary NO GROWTH AT 48 HOURS 09/06/18 11:54 Venous blood - Left Arm Blood Culture - Preliminary NO GROWTH AT 48 HOURS ROS - Medication Medications: Active Medications Generic Name Dose Route Start Last Admin Trade Name Freq PRN Reason Stop Dose Admin Albuterol/Ipratropium 3 ml 09/10/18 18:30 09/13/18 10:45 Duoneb NEB 3 ml [id number] ELINA Administration Alprazolam 0.5 mg 09/10/18 09:00 09/13/18 09:41 Xanax PO 0.5 mg DAILY [facility] Administration Apixaban 2.5 mg 09/10/18 09:00 09/13/18 09:42 Eliquis PO Not Given BID [facility] Calcium/Vitamin D 1 tab 09/10/18 09:00 09/13/18 09:42 Caltrate 600 + Vit D PO Not Given DAILY [facility] Diltiazem HCl 300 mg 09/10/18 09:00 09/13/18 09:43 Cardizem Cd PO Not Given DAILY [facility] Diphenhydramine HCl 25 mg 09/10/18 23:25 09/13/18 03:14 Benadryl IVP 25 mg Q6H PRN Administration Itching & Insomnia Furosemide 20 mg 09/11/18 21:00 09/13/18 09:15 Lasix SLOW IVP 20 mg BID [facility] Administration Vancomycin HCl 1 gm/ Device 200 mls @ 200 mls/hr 09/10/18 22:00 09/13/18 09: 15 IVPB 200 mls 1000,2200 [facility] Administration Magnesium Oxide 400 mg 09/10/18 09:00 09/13/18 09:43 Magnesium Oxide PO Not Given DAILY [facility] Methylprednisolone Sodium Succinate 40 mg 09/11/18 12:00 09/13/18 05:49 Solu-Medrol IVP 40 mg Q6HR [facility] Administration Mometasone Furoate/Formoterol Fumar 2 puff 09/10/18 18:30 09/13/18 07:42 Dulera 200 Mcg/5 Mcg Inhaler INH Not Given BID-RT [facility] Potassium Chloride 20 meq 09/10/18 09:00 09/13/18 09:43 K-Dur PO Not Given DAILY [facility] Sodium Chloride 10 ml 09/11/18 21:00 09/13/18 09:15 Flush - Normal Saline IVF 10 ml Q12HR [facility] Administration - Exam NAD, awake alert General - other findings: mumbles Eye: PERRL, anicteric sclera ENT: normocephalic atraumatic, no oropharyngeal lesions Neck: supple, symmetric, no JVD, no thyromegaly, no lymphadenopathy Heart: RRR, no murmur, no gallops, no rubs Respiratory: no ronchi, no tachypnea, wheezes Gastrointestinal: soft, non-tender, non-distended, normal bowel sounds, no palpable masses, no hepatomegaly, no splenomegaly Extremities: no cyanosis, 1+ LE edema Skin: normal turgor Neurological: CN's grossly intact, no new deficit Musculoskeletal: normal tone, generalized weakness Psychiatric: not oriented Hosp A/P (1) Bacteremia due to Enterococcus Code(s): R78.81 - BACTEREMIA; B95.2 - ENTEROCOCCUS THE CAUSE OF DISEASES CLASSIFIED ELSEWHERE Status: Acute Plan: Continue Vancomycin another 24h then d/c (2) UTI (urinary tract infection) Status: Acute Plan: Initially suspected but Ucx negative, Cefepime d/c'd (3) Acute and chronic respiratory failure with hypoxia Code(s): J96.21 - ACUTE AND CHRONIC RESPIRATORY FAILURE WITH HYPOXIA Status: Acute Plan: Improved, continue supportive mgmt, IV Lasix another 24h then d/c (4) Alzheimer's dementia Code(s): G30.9 - ALZHEIMER'S DISEASE, UNSPECIFIED; F02.80 - DEMENTIA IN OTH DISEASES CLASSD ELSWHR W/O BEHAVRL DISTURB Status: Chronic Plan: Severe dementia, supportive (5) Anxiety and depression Code(s): F41.9 - ANXIETY DISORDER, UNSPECIFIED; F32.9 - MAJOR DEPRESSIVE DISORDER, SINGLE EPISODE, UNSPECIFIED Status: Chronic Plan: Continue Xanax - Plan continue antibiotics, healthcare social worker, speech therapy, respiratory therapy Stable currently Continue Vancomycin another 24h then d/c Continue Lasix IV another 24h [employer] re-evaluation for po intake Likely back to NH in 24h
--- NOTE | 2018-09-13 13:29 | PQF ---
CLINICAL DOCUMENTATION IMPROVEMENT CLARIFICATION FORM: ICD-10 Updated PLEASE DO AN ADDENDUM TO THE PROGRESS NOTE WITH ANY DOCUMENTATION UPDATES OR ADDITIONS AND CARRY THROUGH TO DC SUMMARY. THANK YOU. DATE: 09/13/2018 ATTN: Dr. Urena Please exercise your independent, professional judgment in responding to the clarification form. Clinical indicators are provided on the bottom of this form for your review Please check appropriate box(s): HEART FAILURE: A. TYPE: [ ] Systolic / HFrEF [ x ] Diastolic / HFpEF [ ] Combined Systolic / Diastolic B. ACUITY [ ] Acute [ x ] Acute on Chronic [ ] Chronic [ ] Other diagnosis [ ] Unable to determine In addition, please specify: Present on Admission (POA): [ ] Yes [ x ] No [ ] Unable to determine For continuity of documentation, please document condition throughout progress notes and discharge summary. Thank You. CLINICAL INDICATORS - SIGNS / SYMPTOMS / LABS H&P 09/10: Possible underlying congestive heart failure with preserved ejection fraction. Reportedly, the pt has a hx of cardiomyopathy. PN 09/10: PCXR - mild pulm vasc prominence Exam: Extremities 2+ LE edema PN 8: f/u acute/chronic hypoxic resp. failure, volume overload, COPD RISKS: H&P: Hx of atrial fibrillation, s/p pacemaker. Hx of reportedly COPD. TREATMENT: H&P: we will monitor fluid balance MAR: Order 09/11-09/13: Lasix 20 mg IV BID MAR: Order 09/13: Lasix 20 mg IVP daily Thank you, Andie (This form is maintained as a part of the permanent medical record) 2014 [employer] All Rights Reserved Andie Orosco RN, BSN [email or web address] Office: [phone] [facility]
[2018-09-13 22:21] LABS: Vancomycin, Trough 32.2 ug/mL
[2018-09-14] MEDS: methylPREDNISolone Sod Succ 40 MG VIAL IVP SCH ×3 (05:21→18:10)
[2018-09-14] MEDS: Mometasone/Formoterol 120 PUFF INHALER INH SCH ×2 (06:55→20:21)
[2018-09-14] MEDS: Magnesium Oxide 400 MG TAB PO SCH (08:39)
[2018-09-14] MEDS: Calcium Carbonate + Vit D 1 TAB PO SCH (08:39)
[2018-09-14] MEDS: Potassium Chloride 20 MEQ TAB PO SCH (08:39)
[2018-09-14] MEDS: ALPRAZolam 0.5 MG TAB PO SCH (08:39)
[2018-09-14] MEDS: Apixaban 2.5 MG TAB PO SCH ×2 (08:39→19:37)
[2018-09-14] MEDS: Diltiazem HCl CD 300 mg Capsule PO SCH (08:40)
[2018-09-14] MEDS: Furosemide 20 MG/2 ML VIAL IVP SCH (08:40)
--- NOTE | 2018-09-14 12:31 | PDOC.HOSPP ---
- Subjective Encounter Date: 09/14/18 Encounter Time: 08:20 Subjective: Pt seen for followup re: bacteremia. Pt is unable to answer questions, could not complete ROS. - Objective Vital Signs & Weight: Vital Signs (12 hours) Temp Pulse Resp BP Pulse Ox 09/14/18 12:00 98.3 F 105 H 16 120/64 95 09/14/18 10:55 85 20 91 L 09/14/18 08:40 105 H 09/14/18 08:00 97.8 F 105 H 16 144/79 H 95 09/14/18 07:03 95 09/14/18 07:02 95 16 95 09/14/18 06:55 95 16 95 09/14/18 02:31 90 16 95 Weight Weight 213 lb 11.2 oz I&O: 09/13/18 09/14/18 09/15/18 06:59 06:59 06:59 Intake Total 450 530 Output Total 3 Balance 447 530 Result Diagrams: 09/10/18 05:14 09/11/18 05:52 Additional Labs: Labs and MARs reviewed by me ROS - Medication Medications: Active Medications Generic Name Dose Route Start Last Admin Trade Name Freq PRN Reason Stop Dose Admin Albuterol/Ipratropium 3 ml 09/10/18 18:30 09/14/18 10:55 Duoneb NEB 3 ml [id number] ELINA Administration Alprazolam 0.5 mg 09/10/18 09:00 09/14/18 08:39 Xanax PO 0.5 mg DAILY [facility] Administration Apixaban 2.5 mg 09/10/18 09:00 09/14/18 08:39 Eliquis PO 2.5 mg BID ELINA Administration Calcium/Vitamin D 1 tab 09/10/18 09:00 09/14/18 08:39 Caltrate 600 + Vit D PO 1 tab DAILY [facility] Administration Diltiazem HCl 300 mg 09/10/18 09:00 09/14/18 08:40 Cardizem Cd PO 300 mg DAILY [facility] Administration Diphenhydramine HCl 25 mg 09/10/18 23:25 09/13/18 19:42 Benadryl IVP 25 mg Q6H PRN Administration Itching & Insomnia Furosemide 20 mg 09/14/18 09:00 09/14/18 08:40 Lasix IVP 20 mg DAILY [facility] Administration Magnesium Oxide 400 mg 09/10/18 09:00 09/14/18 08:39 Magnesium Oxide PO 400 mg DAILY [facility] Administration Methylprednisolone Sodium Succinate 40 mg 09/11/18 12:00 09/14/18 11:45 Solu-Medrol IVP 40 mg Q6HR ELINA Administration Mometasone Furoate/Formoterol Fumar 2 puff 09/10/18 18:30 09/14/18 06:55 Dulera 200 Mcg/5 Mcg Inhaler INH 2 puff BID-RT ELINA Administration Potassium Chloride 20 meq 09/10/18 09:00 09/14/18 08:39 K-Dur PO 20 meq DAILY [facility] Administration Sodium Chloride 10 ml 09/11/18 21:00 09/14/18 08:40 Flush - Normal Saline IVF 10 ml Q12HR ELINA Administration - Exam NAD Eye: anicteric sclera ENT: normocephalic atraumatic Neck: supple Heart: RRR Respiratory: CTAB Gastrointestinal: soft Psychiatric: normal affect Hosp A/P (1) Bacteremia due to Enterococcus Code(s): R78.81 - BACTEREMIA; B95.2 - ENTEROCOCCUS THE CAUSE OF DISEASES CLASSIFIED ELSEWHERE Status: Acute (2) Alzheimer's dementia Code(s): G30.9 - ALZHEIMER'S DISEASE, UNSPECIFIED; F02.80 - DEMENTIA IN OTH DISEASES CLASSD ELSWHR W/O BEHAVRL DISTURB Status: Chronic (3) Dyslipidemia Code(s): E78.5 - HYPERLIPIDEMIA, UNSPECIFIED Status: Chronic (4) Hypertension Code(s): I10 - ESSENTIAL (PRIMARY) HYPERTENSION Status: Chronic Qualifiers: Hypertension type: essential hypertension Qualified Code(s): I10 - Essential (primary) hypertension (5) Paroxysmal A-fib Code(s): I48.0 - PAROXYSMAL ATRIAL FIBRILLATION Status: Chronic - Plan continue antibiotics, PT/OT, out of bed/ambulate Pt is on IV vancomycin. Consult ID re: Enterococcal bacteremia. BP controlled. Continue apixaban.
[2018-09-14 22:26] LABS: Vancomycin, Random 19.8 ug/mL (See Comment)
[2018-09-15] MEDS: methylPREDNISolone Sod Succ 40 MG VIAL IVP SCH ×5 (00:35→23:37)
[2018-09-15] MEDS: Mometasone/Formoterol 120 PUFF INHALER INH SCH ×2 (06:51→19:34)
[2018-09-15] MEDS: Vancomycin HCl 1 GM in Premix Bag 1 BAG IVPB SCH (08:36)
[2018-09-15] MEDS: Diltiazem HCl CD 300 mg Capsule PO SCH (08:39)
[2018-09-15] MEDS: Potassium Chloride 20 MEQ TAB PO SCH (08:40)
[2018-09-15] MEDS: Calcium Carbonate + Vit D 1 TAB PO SCH (08:40)
[2018-09-15] MEDS: ALPRAZolam 0.5 MG TAB PO SCH (08:40)
[2018-09-15] MEDS: Furosemide 20 MG/2 ML VIAL IVP SCH (08:40)
[2018-09-15] MEDS: Apixaban 2.5 MG TAB PO SCH ×2 (08:40→20:18)
[2018-09-15] MEDS: Magnesium Oxide 400 MG TAB PO SCH (08:40)
[2018-09-15 09:19] LABS: #Basophils 0.1 thou/uL (0.0-0.2); #Lymphocytes 0.3 thou/uL (1.20-3.40); #Monocytes 0.3 thou/uL (0.11-0.59); #Neutrophils 4.7 thou/uL (1.40-6.50); %Basophils 1.3 % (0.0-1.0); %Eosinophils 0.3 % (0.0-10.0); %Lymphocytes 5.2 % (21.0-51.0); %Monocytes 5.1 % (0.0-10.0); %Neutrophils 88.2 % (42.0-75.0); Hemoglobin 14.6 g/dL (12.0-16.0); Mean Corpuscular HGB CONC 31.1 g/dL (32.0-36.0); Mean Corpuscular Volume 93.3 fL (78.0-98.0); Mean Platelet Volume 9.4 fL (7.4-10.4); Platelet Count 127 thou/uL (130-400); RBC Distribution Width 14.5 % (11.5-14.5); Red Blood Cell (RBC) Count 5.03 mill/uL (4.20-5.40); White Blood Cell (WBC) Count 5.3 thou/uL (4.8-10.8)
[2018-09-15 09:43] LABS: Anion Gap 19 mmol/L (10-20); BUN (Urea Nitrogen) 47 mg/dL (9.8-20.1); Calc. Creatinine Clearance 62 mL/min (70-130); Carbon Dioxide 27 mmol/L (23-31); Chloride 104 mmol/L (98-107); Estimated GFR-MDRD 53; Glucose 139 mg/dL (83-110); Potassium 3.9 mmol/L (3.5-5.1); Sodium 146 mmol/L (136-145)
--- NOTE | 2018-09-15 13:48 | PDOC.HOSPP ---
- Subjective Encounter Date: 09/15/18 Encounter Time: 07:20 Subjective: Pt seen for followup re: bacteremia. Pt is not answering questions, unable to complete ROS. - Objective Vital Signs & Weight: Vital Signs (12 hours) Temp Pulse Resp BP Pulse Ox 09/15/18 12:00 98.1 F 92 17 114/61 92 L 09/15/18 10:46 71 16 90 L 09/15/18 09:35 160/92 H 09/15/18 08:00 98.3 F 83 24 H 93 L 09/15/18 06:53 91 L 09/15/18 06:52 73 16 91 L 09/15/18 06:51 73 16 91 L 09/15/18 04:00 97.5 F L 93 16 134/80 93 L 09/15/18 02:54 95 Weight Weight 213 lb 11.2 oz I&O: 09/14/18 09/15/18 09/16/18 06:59 06:59 06:59 Intake Total 530 480 Balance 530 480 Result Diagrams: 09/15/18 09:11 09/15/18 09:10 Additional Labs: Labs and MARs reviewed by me ROS - Medication Medications: Active Medications Generic Name Dose Route Start Last Admin Trade Name Freq PRN Reason Stop Dose Admin Albuterol/Ipratropium 3 ml 09/10/18 18:30 09/15/18 10:46 Duoneb NEB 3 ml [id number] ELINA Administration Alprazolam 0.5 mg 09/10/18 09:00 09/15/18 08:40 Xanax PO 0.5 mg DAILY [facility] Administration Apixaban 2.5 mg 09/10/18 09:00 09/15/18 08:40 Eliquis PO 2.5 mg BID ELINA Administration Calcium/Vitamin D 1 tab 09/10/18 09:00 09/15/18 08:40 Caltrate 600 + Vit D PO 1 tab DAILY [facility]INA Administration Diltiazem HCl 300 mg 09/10/18 09:00 09/15/18 08:39 Cardizem Cd PO 300 mg DAILY [facility]INA Administration Diphenhydramine HCl 25 mg 09/10/18 23:25 09/13/18 19:42 Benadryl IVP 25 mg Q6H PRN Administration Itching & Insomnia Furosemide 20 mg 09/14/18 09:00 09/15/18 08:40 Lasix IVP 20 mg DAILY [facility]INA Administration Vancomycin HCl 1 gm/ Device 200 mls @ 200 mls/hr 09/15/18 09:00 09/15/18 08: 36 IVPB 200 mls 0900 ELINA Administration Magnesium Oxide 400 mg 09/10/18 09:00 09/15/18 08:40 Magnesium Oxide PO 400 mg DAILY [facility]INA Administration Methylprednisolone Sodium Succinate 40 mg 09/11/18 12:00 09/15/18 12:15 Solu-Medrol IVP 40 mg Q6HR ELINA Administration Mometasone Furoate/Formoterol Fumar 2 puff 09/10/18 18:30 09/15/18 06:51 Dulera 200 Mcg/5 Mcg Inhaler INH 2 puff BID-RT ELINA Administration Potassium Chloride 20 meq 09/10/18 09:00 09/15/18 08:40 K-Dur PO 20 meq DAILY ELINA Administration Sodium Chloride 10 ml 09/11/18 21:00 09/15/18 08:40 Flush - Normal Saline IVF 10 ml Q12HR ELINA Administration - Exam NAD Eye: anicteric sclera ENT: normocephalic atraumatic Neck: supple Heart: no rubs Respiratory: CTAB, no wheezes Gastrointestinal: soft, non-tender Skin: normal turgor Musculoskeletal: no muscle wasting Psychiatric: normal affect Hosp A/P (1) Bacteremia due to Enterococcus Code(s): R78.81 - BACTEREMIA; B95.2 - ENTEROCOCCUS THE CAUSE OF DISEASES CLASSIFIED ELSEWHERE Status: Acute (2) Alzheimer's dementia Code(s): G30.9 - ALZHEIMER'S DISEASE, UNSPECIFIED; F02.80 - DEMENTIA IN OTH DISEASES CLASSD ELSWHR W/O BEHAVRL DISTURB Status: Chronic (3) Dyslipidemia Code(s): E78.5 - HYPERLIPIDEMIA, UNSPECIFIED Status: Chronic (4) Hypertension Code(s): I10 - ESSENTIAL (PRIMARY) HYPERTENSION Status: Chronic Qualifiers: Hypertension type: essential hypertension Qualified Code(s): I10 - Essential (primary) hypertension (5) Paroxysmal A-fib Code(s): I48.0 - PAROXYSMAL ATRIAL FIBRILLATION Status: Chronic - Plan continue antibiotics, out of bed/ambulate Continue IV vancomycin. Consulted ID re: Enterococcal bacteremia. BP controlled. Will continue apixaban for atrial fibrillation.
[2018-09-15] MEDS: diphenhydrAMINE 50 MG/ML VIAL IVP PRN (20:21)
[2018-09-16] MEDS: methylPREDNISolone Sod Succ 40 MG VIAL IVP SCH ×3 (05:06→17:03)
[2018-09-16 06:14] LABS: #Lymphocytes 0.5 thou/uL (1.20-3.40); #Monocytes 0.2 thou/uL (0.11-0.59); %Eosinophils 0.3 % (0.0-10.0); %Lymphocytes 7.2 % (21.0-51.0); %Monocytes 3.4 % (0.0-10.0); %Neutrophils 89.1 % (42.0-75.0); Hemoglobin 14.2 g/dL (12.0-16.0); Mean Corpuscular HGB CONC 31.8 g/dL (32.0-36.0); Mean Corpuscular Hemoglobin 29.9 pg (27.0-31.0); Mean Corpuscular Volume 94.2 fL (78.0-98.0); Mean Platelet Volume 9.6 fL (7.4-10.4); Platelet Count 137 thou/uL (130-400); RBC Distribution Width 14.3 % (11.5-14.5); Red Blood Cell (RBC) Count 4.74 mill/uL (4.20-5.40); White Blood Cell (WBC) Count 6.8 thou/uL (4.8-10.8)
[2018-09-16 06:33] LABS: Anion Gap 14 mmol/L (10-20); BUN (Urea Nitrogen) 51 mg/dL (9.8-20.1); Calc. Creatinine Clearance 71 mL/min (70-130); Carbon Dioxide 34 mmol/L (23-31); Chloride 103 mmol/L (98-107); Estimated GFR-MDRD 62; Glucose 138 mg/dL (83-110); Potassium 3.6 mmol/L (3.5-5.1); Sodium 147 mmol/L (136-145)
[2018-09-16] MEDS: Mometasone/Formoterol 120 PUFF INHALER INH SCH ×2 (06:56→19:04)
[2018-09-16] MEDS: Potassium Chloride 20 MEQ TAB PO SCH (09:45)
[2018-09-16] MEDS: ALPRAZolam 0.5 MG TAB PO SCH (09:45)
[2018-09-16] MEDS: Calcium Carbonate + Vit D 1 TAB PO SCH (09:45)
[2018-09-16] MEDS: Magnesium Oxide 400 MG TAB PO SCH (09:45)
[2018-09-16] MEDS: Furosemide 20 MG/2 ML VIAL IVP SCH (09:46)
[2018-09-16] MEDS: Apixaban 2.5 MG TAB PO SCH ×2 (09:49→20:42)
[2018-09-16] MEDS: Diltiazem HCl CD 300 mg Capsule PO SCH (09:49)
[2018-09-16] MEDS: Vancomycin HCl 1 GM in Premix Bag 1 BAG IVPB SCH (09:49)
--- NOTE | 2018-09-16 15:09 | PDOC.HOSPP ---
- Subjective Encounter Date: 09/16/18 Encounter Time: 07:00 Subjective: Pt seen for followup re: bacteremia. Pt unable to answer questions, could not complete ROS. - Objective Vital Signs & Weight: Vital Signs (12 hours) Temp Pulse Resp BP Pulse Ox 09/16/18 14:56 95 20 92 L 09/16/18 12:16 97.6 F 75 20 166/97 H 94 L 09/16/18 10:50 77 20 91 L 09/16/18 08:00 97.6 F 102 H 26 H 190/72 H 94 L 09/16/18 07:01 90 L 09/16/18 06:59 105 H 24 H 90 L 09/16/18 06:56 105 H 20 90 L 09/16/18 04:36 97.8 F 78 16 158/94 H 94 L 09/16/18 03:40 93 L Weight Weight 213 lb 11.2 oz I&O: 09/15/18 09/16/18 09/17/18 06:59 06:59 06:59 Intake Total 480 730 Balance 480 730 Result Diagrams: 09/16/18 05:39 09/16/18 05:39 Additional Labs: Labs and MARs reviewed by me ROS - Medication Medications: Active Medications Generic Name Dose Route Start Last Admin Trade Name Freq PRN Reason Stop Dose Admin Albuterol/Ipratropium 3 ml 09/10/18 18:30 09/16/18 14:56 Duoneb NEB 3 ml [id number] ELINA Administration Alprazolam 0.5 mg 09/10/18 09:00 09/16/18 09:45 Xanax PO 0.5 mg DAILY [facility] Administration Apixaban 2.5 mg 09/10/18 09:00 09/16/18 09:49 Eliquis PO 2.5 mg BID ELINA Administration Calcium/Vitamin D 1 tab 09/10/18 09:00 09/16/18 09:45 Caltrate 600 + Vit D PO 1 tab DAILY [facility]INA Administration Diltiazem HCl 300 mg 09/10/18 09:00 09/16/18 09:49 Cardizem Cd PO 300 mg DAILY [facility]INA Administration Diphenhydramine HCl 25 mg 09/10/18 23:25 09/15/18 20:21 Benadryl IVP 25 mg Q6H PRN Administration Itching & Insomnia Furosemide 20 mg 09/14/18 09:00 09/16/18 09:46 Lasix IVP 20 mg DAILY [facility]INA Administration Vancomycin HCl 1 gm/ Device 200 mls @ 200 mls/hr 09/15/18 09:00 09/16/18 09: 49 IVPB 200 mls 0900 ELINA Administration Magnesium Oxide 400 mg 09/10/18 09:00 09/16/18 09:45 Magnesium Oxide PO 400 mg DAILY [facility]INA Administration Methylprednisolone Sodium Succinate 40 mg 09/11/18 12:00 09/16/18 11:56 Solu-Medrol IVP 40 mg Q6HR ELINA Administration Mometasone Furoate/Formoterol Fumar 2 puff 09/10/18 18:30 09/16/18 06:56 Dulera 200 Mcg/5 Mcg Inhaler INH 2 puff BID-RT ELINA Administration Potassium Chloride 20 meq 09/10/18 09:00 09/16/18 09:45 K-Dur PO 20 meq DAILY [facility]INA Administration Sodium Chloride 10 ml 09/11/18 21:00 09/16/18 09:50 Flush - Normal Saline IVF 10 ml Q12HR ELINA Administration Sodium Chloride 10 ml 09/11/18 09:45 09/15/18 23:37 Flush - Normal Saline IVF 10 ml PRN PRN Administration Saline Flush - Exam awake alert Eye: anicteric sclera ENT: normocephalic atraumatic Neck: no thyromegaly Heart: RRR Respiratory: CTAB Gastrointestinal: soft Musculoskeletal: no muscle wasting Psychiatric: normal affect Hosp A/P (1) Bacteremia due to Enterococcus Code(s): R78.81 - BACTEREMIA; B95.2 - ENTEROCOCCUS THE CAUSE OF DISEASES CLASSIFIED ELSEWHERE Status: Acute (2) Alzheimer's dementia Code(s): G30.9 - ALZHEIMER'S DISEASE, UNSPECIFIED; F02.80 - DEMENTIA IN OTH DISEASES CLASSD ELSWHR W/O BEHAVRL DISTURB Status: Chronic (3) Dyslipidemia Code(s): E78.5 - HYPERLIPIDEMIA, UNSPECIFIED Status: Chronic (4) Hypertension Code(s): I10 - ESSENTIAL (PRIMARY) HYPERTENSION Status: Chronic Qualifiers: Hypertension type: essential hypertension Qualified Code(s): I10 - Essential (primary) hypertension (5) Paroxysmal A-fib Code(s): I48.0 - PAROXYSMAL ATRIAL FIBRILLATION Status: Chronic - Plan continue antibiotics, PT/OT, out of bed/ambulate Continue IV vancomycin, await ID consult. BP controlled. Continue apixaban for atrial fibrillation.
[2018-09-16] MEDS: diphenhydrAMINE 50 MG/ML VIAL IVP PRN (20:42)
[2018-09-17] MEDS: methylPREDNISolone Sod Succ 40 MG VIAL IVP SCH ×4 (00:44→17:03)
[2018-09-17] MEDS: Mometasone/Formoterol 120 PUFF INHALER INH SCH ×2 (06:32→19:13)
[2018-09-17] MEDS: Furosemide 20 MG/2 ML VIAL IVP SCH (08:35)
[2018-09-17] MEDS: Diltiazem HCl CD 300 mg Capsule PO SCH (08:36)
[2018-09-17] MEDS: Potassium Chloride 20 MEQ TAB PO SCH (08:36)
[2018-09-17] MEDS: Magnesium Oxide 400 MG TAB PO SCH (08:36)
[2018-09-17] MEDS: Calcium Carbonate + Vit D 1 TAB PO SCH (08:36)
[2018-09-17] MEDS: ALPRAZolam 0.5 MG TAB PO SCH (08:36)
[2018-09-17] MEDS: Apixaban 2.5 MG TAB PO SCH ×2 (08:36→21:16)
[2018-09-17 08:54] LABS: Vancomycin, Trough 17.9 ug/mL
[2018-09-17] MEDS: Vancomycin HCl 1 GM in Premix Bag 1 BAG IVPB SCH (08:56)
--- NOTE | 2018-09-17 09:54 | PDOC.HOSPP ---
- Subjective Encounter Date: 09/17/18 Encounter Time: 07:00 Subjective: Pt seen for followup re: bacteremia. Nonverbal, could not complete ROS. - Objective Vital Signs & Weight: Vital Signs (12 hours) Temp Pulse Resp BP Pulse Ox 09/17/18 07:49 98.0 F 89 22 H 132/81 96 09/17/18 06:32 96 16 98 09/17/18 06:31 98 09/17/18 06:30 96 16 98 09/17/18 03:58 97.7 F 97 20 169/92 H 96 09/17/18 02:27 92 L 09/16/18 23:36 97.7 F 98 18 154/65 H 92 L 09/16/18 22:18 92 12 93 L 09/16/18 21:50 150/69 H Weight Weight 213 lb 11.2 oz I&O: 09/16/18 09/17/18 09/18/18 06:59 06:59 06:59 Intake Total 730 350 Balance 730 350 Result Diagrams: 09/16/18 05:39 09/16/18 05:39 Additional Labs: Labs and MARs reviewed by me. ROS - Medication Medications: Active Medications Generic Name Dose Route Start Last Admin Trade Name Freq PRN Reason Stop Dose Admin Albuterol/Ipratropium 3 ml 09/10/18 18:30 09/17/18 06:30 Duoneb NEB 3 ml [id number] ELINA Administration Alprazolam 0.5 mg 09/10/18 09:00 09/17/18 08:36 Xanax PO 0.5 mg DAILY ELINA Administration Apixaban 2.5 mg 09/10/18 09:00 09/17/18 08:36 Eliquis PO 2.5 mg BID ELINA Administration Calcium/Vitamin D 1 tab 09/10/18 09:00 09/17/18 08:36 Caltrate 600 + Vit D PO 1 tab DAILY ELINA Administration Diltiazem HCl 300 mg 09/10/18 09:00 09/17/18 08:36 Cardizem Cd PO 300 mg DAILY ELINA Administration Diphenhydramine HCl 25 mg 09/10/18 23:25 09/16/18 20:42 Benadryl IVP 25 mg Q6H PRN Administration Itching & Insomnia Furosemide 20 mg 09/14/18 09:00 09/17/18 08:35 Lasix IVP 20 mg DAILY ELINA Administration Vancomycin HCl 1 gm/ Device 200 mls @ 200 mls/hr 09/15/18 09:00 09/17/18 08: 56 IVPB 200 mls 0900 ELINA Administration Magnesium Oxide 400 mg 09/10/18 09:00 09/17/18 08:36 Magnesium Oxide PO 400 mg DAILY ELINA Administration Methylprednisolone Sodium Succinate 40 mg 09/11/18 12:00 09/17/18 06:11 Solu-Medrol IVP 40 mg Q6HR ELINA Administration Mometasone Furoate/Formoterol Fumar 2 puff 09/10/18 18:30 09/17/18 06:32 Dulera 200 Mcg/5 Mcg Inhaler INH 2 puff BID-RT ELINA Administration Potassium Chloride 20 meq 09/10/18 09:00 09/17/18 08:36 K-Dur PO 20 meq DAILY ELINA Administration Sodium Chloride 10 ml 09/11/18 21:00 09/17/18 08:36 Flush - Normal Saline IVF 10 ml Q12HR ELINA Administration Sodium Chloride 10 ml 09/11/18 09:45 09/15/18 23:37 Flush - Normal Saline IVF 10 ml PRN PRN Administration Saline Flush - Exam awake alert Eye: anicteric sclera ENT: moist mucosa Neck: supple Heart: RRR, no rubs Respiratory: CTAB, no wheezes Gastrointestinal: soft, non-tender Skin: no lesions, no rashes Psychiatric: normal affect, normal behavior Hosp A/P (1) Bacteremia due to Enterococcus Code(s): R78.81 - BACTEREMIA; B95.2 - ENTEROCOCCUS THE CAUSE OF DISEASES CLASSIFIED ELSEWHERE Status: Acute (2) Alzheimer's dementia Code(s): G30.9 - ALZHEIMER'S DISEASE, UNSPECIFIED; F02.80 - DEMENTIA IN OTH DISEASES CLASSD ELSWHR W/O BEHAVRL DISTURB Status: Chronic (3) Dyslipidemia Code(s): E78.5 - HYPERLIPIDEMIA, UNSPECIFIED Status: Chronic (4) Hypertension Code(s): I10 - ESSENTIAL (PRIMARY) HYPERTENSION Status: Chronic Qualifiers: Hypertension type: essential hypertension Qualified Code(s): I10 - Essential (primary) hypertension (5) Paroxysmal A-fib Code(s): I48.0 - PAROXYSMAL ATRIAL FIBRILLATION Status: Chronic - Plan continue antibiotics, out of bed/ambulate Pt is on IV vancomycin. BP controlled. On apixaban for atrial fibrillation. Back to shelter in 24-48 hrs.
--- NOTE | 2018-09-17 14:26 | PDOC.HOSPP ---
- Subjective Encounter Date: 09/17/18 Encounter Time: 07:20 non-verbal Subjective: Pt seen forllowup re: bacteremia. Unable to complete ROS. - Objective Vital Signs & Weight: Vital Signs (12 hours) Temp Pulse Resp BP Pulse Ox 09/17/18 10:52 97.7 F 89 20 127/80 96 09/17/18 10:36 89 20 96 09/17/18 07:49 98.0 F 89 22 H 132/81 96 09/17/18 06:32 96 16 98 09/17/18 06:31 98 09/17/18 06:30 96 16 98 09/17/18 03:58 97.7 F 97 20 169/92 H 96 09/17/18 02:27 92 L Weight Weight 213 lb 11.2 oz I&O: 09/16/18 09/17/18 09/18/18 06:59 06:59 06:59 Intake Total 730 350 Balance 730 350 Result Diagrams: 09/16/18 05:39 09/16/18 05:39 Additional Labs: Labs and MARs reviewed by me ROS - Medication Medications: Active Medications Generic Name Dose Route Start Last Admin Trade Name Freq PRN Reason Stop Dose Admin Albuterol/Ipratropium 3 ml 09/10/18 18:30 09/17/18 10:36 Duoneb NEB 3 ml [id number] ELINA Administration Alprazolam 0.5 mg 09/10/18 09:00 09/17/18 08:36 Xanax PO 0.5 mg DAILY ELINA Administration Apixaban 2.5 mg 09/10/18 09:00 09/17/18 08:36 Eliquis PO 2.5 mg BID ELINA Administration Calcium/Vitamin D 1 tab 09/10/18 09:00 09/17/18 08:36 Caltrate 600 + Vit D PO 1 tab DAILY ELINA Administration Diltiazem HCl 300 mg 09/10/18 09:00 09/17/18 08:36 Cardizem Cd PO 300 mg DAILY ELINA Administration Diphenhydramine HCl 25 mg 09/10/18 23:25 09/16/18 20:42 Benadryl IVP 25 mg Q6H PRN Administration Itching & Insomnia Furosemide 20 mg 09/14/18 09:00 09/17/18 08:35 Lasix IVP 20 mg DAILY ELINA Administration Vancomycin HCl 1 gm/ Device 200 mls @ 200 mls/hr 09/15/18 09:00 09/17/18 08: 56 IVPB 200 mls 0900 ELINA Administration Magnesium Oxide 400 mg 09/10/18 09:00 09/17/18 08:36 Magnesium Oxide PO 400 mg DAILY ELINA Administration Methylprednisolone Sodium Succinate 40 mg 09/11/18 12:00 09/17/18 11:16 Solu-Medrol IVP 40 mg Q6HR ELINA Administration Mometasone Furoate/Formoterol Fumar 2 puff 09/10/18 18:30 09/17/18 06:32 Dulera 200 Mcg/5 Mcg Inhaler INH 2 puff BID-RT ELINA Administration Potassium Chloride 20 meq 09/10/18 09:00 09/17/18 08:36 K-Dur PO 20 meq DAILY ELINA Administration Sodium Chloride 10 ml 09/11/18 21:00 09/17/18 08:36 Flush - Normal Saline IVF 10 ml Q12HR ELINA Administration Sodium Chloride 10 ml 09/11/18 09:45 09/15/18 23:37 Flush - Normal Saline IVF 10 ml PRN PRN Administration Saline Flush - Exam NAD Eye: anicteric sclera ENT: normocephalic atraumatic, moist mucosa Neck: supple Heart: RRR Gastrointestinal: soft Skin: normal turgor Psychiatric: normal affect Hosp A/P (1) Bacteremia due to Enterococcus Code(s): R78.81 - BACTEREMIA; B95.2 - ENTEROCOCCUS THE CAUSE OF DISEASES CLASSIFIED ELSEWHERE Status: Acute (2) Alzheimer's dementia Code(s): G30.9 - ALZHEIMER'S DISEASE, UNSPECIFIED; F02.80 - DEMENTIA IN OTH DISEASES CLASSD ELSWHR W/O BEHAVRL DISTURB Status: Chronic (3) Dyslipidemia Code(s): E78.5 - HYPERLIPIDEMIA, UNSPECIFIED Status: Chronic (4) Hypertension Code(s): I10 - ESSENTIAL (PRIMARY) HYPERTENSION Status: Chronic Qualifiers: Hypertension type: essential hypertension Qualified Code(s): I10 - Essential (primary) hypertension (5) Paroxysmal A-fib Code(s): I48.0 - PAROXYSMAL ATRIAL FIBRILLATION Status: Chronic - Plan continue antibiotics Pt is on IV vancomycin, continue. BP controlled. Continue apixaban for atrial fibrillation. Probable discharge in 24-48 hrs.
[2018-09-17] MEDS ORDERED: Iopamidol 370 76% 100 ML VIAL ONE (16:21)
--- NOTE | 2018-09-17 19:20 | CT ---
CT OF THE ABDOMEN AND PELVIS WITH CONTRAST: Comparison: 05-02-09 History: Sepsis and fever of unknown origin. Technique: Multiple contiguous axial images were obtained in a CT of the abdomen and pelvis with cont rast. PO contrast was administered. Coronal reformats were performed. FINDINGS: The liver, gallbladder, right kidney, adrenal glands, spleen, and pancreas are unremarkable. There ar e hypodensities in the left kidney measuring up to 2.1 cm in size which represents cysts. No free air , free fluid, or stranding changes are seen in the abdomen or pelvis. The patient is status post hysterectomy. The large and small bowel are normal in caliber. No abdomina l or pelvic lymphadenopathy are seen. Atherosclerotic calcifications are seen in the aorta. Degenerative changes are seen in the spine. There are trace bilateral pleural effusions with adjacent atelectasis. There is stable eventration of the anterior abdominal wall. The patient may be status p ost hernia repair in this location. Diffuse soft tissue anasarca is seen. There are healed left pelvi c fractures. IMPRESSION: 1. No evidence of acute intraabdominal/pelvic abnormality. 2. Left renal cysts. POS: [facility]
--- NOTE | 2018-09-17 22:25 | CON ---
DATE OF CONSULTATION: 09/17/2018 REASON FOR CONSULTATION: Bacteremia. HISTORY OF PRESENT ILLNESS: Ms. Mari is an 87-year-old patient who has cognitive dysfunction, probably from vascular dementia and atrial fibrillation with a pacemaker, was recently discharged from the hospital with a history of atrial fibrillation with RVR, hypoxic respiratory failure secondary to the above, and dementia. She was given Cardizem and then transitioned to short-acting calcium channel marybel and then long-acting calcium channel marybel plus Eliquis. She was recalled because the urine cultures obtained prior to discharge had yielded no organism resistant to the antimicrobials that she had been discharged with. On arrival, there is no report of seizure activity. No respiratory symptoms. No abdominal symptoms. REVIEW OF SYSTEMS: Review of systems was limited because of the patient's mental state. PAST MEDICAL HISTORY: Atrial fibrillation, pacemaker. Dementia, probably vascular dementia. Lower GI tract hemorrhage, hypertension, and hyperlipidemia. SOCIAL HISTORY: Never smoker, looks like she lives in a fci. ALLERGIES: PENICILLIN. CURRENT MEDICATIONS: 1. Tylenol. 2. DuoNeb. 3. Xanax. 4. Eliquis. 5. Caltrate. 6. Lasix. 7. Methylprednisolone. 8. Vancomycin. PHYSICAL EXAMINATION: VITAL SIGNS: Temperature has been normal since admission. BP 120/80, pulse 89, respirations 20, O2 saturation 96 on 2 L nasal cannula. GENERAL: She does not appear in distress. She establishes eye contact which is transient, somewhat tremulous during the examination. She could not reply to questions accurately and the review of systems was not feasible. SKIN: There were no areas of skin breakdown. The patient was voiding in the diaper. LYMPH: No lymphadenopathy. HEENT: Ocular movements conjugate. Oral cavity still with a few teeth in place with expected decay. NECK: Stiff to all directions. No jugular vein distention. HEART: S1 and S2, irregular rate. ABDOMEN: Soft. Not distended. Question of bladder distention. 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 Some element of venous stasis dermatitis in lower extremities. Pulses 1+ in dorsalis pedis. Plantar responses are flexor. No clonus. NEUROLOGICAL: She was awake, but very limited cognitive function. Could not interact verbally in any meaningful way. LABORATORY DATA: White cell count 6.6 and 6.8, hemoglobin 14, platelets 137, with 89% neutrophils. Chemistry with a sodium of 140, creatinine 0.82. Liver profile normal. Urinalysis with 21 to 50 wbc's. Enterococcus faecalis with susceptibility to penicillins. Previous echocardiogram from February; mild mitral regurgitation, mild to moderate tricuspid regurg. ASSESSMENT: Atrial fibrillation. Dementia, probably vascular. Abnormal urinalysis with positive urine culture, which prompted readmission and positive blood culture with a different organism 1/2 sets. DISCUSSION: The differential diagnosis includes contamination of the blood sample versus true bacteremia. The urinary findings identified previously probably reflected asymptomatic bacteriuria, although that is almost impossible to verify, but I would not have treated that finding at that time, but what the problem now is the current isolate from the blood sample. She does not have any evidence of inflammatory process going on. No fever. White cell count is normal. There is no left shift except that now she has been administered methylprednisolone. I would attempt discontinuation after taper of the methylprednisolone or just plain discontinuation of methylprednisolone since I do not see a specific indication for its use at this point in time and we will go ahead and order a CT abdomen and pelvis with contrast to see if there is any intraabdominal inflammatory process or urinary tract disorder that might be associated with the Enterococcus faecalis isolate. If that checks normal, then I would discontinue antimicrobial therapy. Job ID: [id number]
[2018-09-18] MEDS: methylPREDNISolone Sod Succ 40 MG VIAL IVP SCH ×3 (00:10→13:44)
[2018-09-18] MEDS: Mometasone/Formoterol 120 PUFF INHALER INH SCH (07:10)
[2018-09-18 07:56] VITALS: TEMP 97.7
[2018-09-18] MEDS: Diltiazem HCl CD 300 mg Capsule PO SCH (08:52)
[2018-09-18] MEDS: ALPRAZolam 0.5 MG TAB PO SCH (08:52)
[2018-09-18] MEDS: Vancomycin HCl 1 GM in Premix Bag 1 BAG IVPB SCH (08:53)
[2018-09-18] MEDS: Calcium Carbonate + Vit D 1 TAB PO SCH (08:53)
[2018-09-18] MEDS: Apixaban 2.5 MG TAB PO SCH (08:53)
[2018-09-18] MEDS: Potassium Chloride 20 MEQ TAB PO SCH (08:53)
[2018-09-18] MEDS: Furosemide 20 MG/2 ML VIAL IVP SCH (08:53)
[2018-09-18] MEDS: Magnesium Oxide 400 MG TAB PO SCH (08:53)
[2018-09-18 14:07] LABS: #Lymphocytes 0.6 thou/uL (1.20-3.40); #Monocytes 0.3 thou/uL (0.11-0.59); #Neutrophils 6.8 thou/uL (1.40-6.50); %Basophils 0.2 % (0.0-1.0); %Eosinophils 0.3 % (0.0-10.0); %Lymphocytes 8.3 % (21.0-51.0); %Monocytes 3.9 % (0.0-10.0); %Neutrophils 87.3 % (42.0-75.0); Mean Corpuscular HGB CONC 32.5 g/dL (32.0-36.0); Mean Corpuscular Hemoglobin 30.2 pg (27.0-31.0); Mean Platelet Volume 10.2 fL (7.4-10.4); Platelet Count 84 thou/uL (130-400); Platelet Morphology Comment Appears Decreased; RBC Morphology Normal; Red Blood Cell (RBC) Count 4.95 mill/uL (4.20-5.40); White Blood Cell (WBC) Count 7.8 thou/uL (4.8-10.8)
[2018-09-18 14:15] LABS: Anion Gap 13 mmol/L (10-20); BUN (Urea Nitrogen) 40 mg/dL (9.8-20.1); Calc. Creatinine Clearance 85 mL/min (70-130); Calcium 9.4 mg/dL (7.8-10.44); Carbon Dioxide 30 mmol/L (23-31); Chloride 104 mmol/L (98-107); Estimated GFR-MDRD 76; Glucose 132 mg/dL (83-110); Potassium 3.5 mmol/L (3.5-5.1); Sodium 143 mmol/L (136-145)
[2018-09-18] MEDS ORDERED: diphenhydrAMINE 25 MG CAP PO PRN (14:58)
[2018-09-18 15:21] VITALS: BP 136/89
--- NOTE | 2018-09-19 04:18 | DIS ---
DATE OF ADMISSION: 09/10/2018 DATE OF DISCHARGE: 09/18/2018 PRIMARY CARE PROVIDER: Dr. Elizabeth Amaya. DISCHARGE DIAGNOSES: 1. Bacteremia. 2. Hypernatremia. 3. Bacteriuria. CONDITION OF PATIENT ON THE DAY OF DISCHARGE: Stable. I assessed Ms. Mari on the day of discharge. She is nonverbal. S1 and S2 are heard, regular. Lungs are clear to auscultation bilaterally. FOLLOWUP APPOINTMENTS: With primary care provider in 3 to 5 days. DISCHARGE MEDICATIONS: 1. Proventil HFA p.r.n. 2. Tylenol p.r.n. 3. Zofran p.r.n. 4. Xanax 0.5 mg daily. 5. Calcium/vitamin D3 one tablet daily. 6. Lasix 40 mg daily. 7. Robitussin p.r.n. 8. DuoNeb p.r.n. 9. Loperamide p.r.n. 10. Magnesium oxide 400 mg daily. 11. Potassium chloride 20 mEq daily. 12. Apixaban 2.5 mg 2 times a day. 13. Cardizem CD 300 mg daily. 14. Prednisone taper. HOSPITAL COURSE: Ms. Mari is a pleasant 87-year-old lady who was admitted to [facility] on September 10, 2018, for suspected urinary tract infection. One out of two blood cultures grew Enterococcus faecalis which was resistant to erythromycin and gentamicin, sensitive to imipenem, linezolid, penicillin, piperacillin, and vancomycin. She was treated with vancomycin. She was seen by Infectious Diseases Service. It was felt that the bacteremia may have been a result of sample contamination. Antibiotics are being discontinued and she is being discharged back to her correction. During this hospitalization, she was also hypoxic, secondary to volume overload. She received diuretics. She also received steroids because it was felt that there was a component of COPD to her presentation. On the day of discharge, she has sodium 143, potassium 3.5, creatinine 0.73, white count 7800, hemoglobin 15, and platelet count 84,000. Many thanks for allowing me to participate in your patient's care. Please feel free to contact me with any questions or concerns. DISCHARGE DESTINATION: [facility], from where patient was admitted to the hospital. TIME SPENT: Total amount of time spent coordinating this discharge: Thirty-two minutes. Job ID: [id number]
--- NOTE | 2018-09-20 22:06 | PQF ---
[employer] Credit Risk Analyst Crystal Reports Winform Viewer LUISGILLES OCHOA [id number] [facility] [id number] CLINICAL DOCUMENTATION CLARIFICATION FORM: POST DISCHARGE Addendum to original discharge summary date: ____ Late entry note date: __ DATE: 09/20/18 ATTN:Gilles Schneider Please exercise your independent, professional judgment in responding to the clarification form. Clinical indicators are provided on the bottom of this form for your review Please check appropriate box(s): [ ] Acute Encephalopathy: Etiology: [ ] Hypertensive [ ] Metabolic [ ] Toxic [ ] Drug induced: [ ] Unspecified [ ] in the setting of underlying dementia [ ] Other (please specify) [ ] Transient Alteration of Awareness [ x ] Other diagnosis please specify ___h/o dementia, no evidence of acute encephalopathy [ ] Unable to determine In addition, please specify: Present on Admission (POA): [ ] Yes [ ] No [ ] Unable to determine For continuity of documentation, please document condition throughout progress notes and discharge summary. Thank You. CLINICAL INDICATORS H and P 09/10 pg.1- "Chief complaint: Change in metal status" H and P 8 pg.1- "The patient has underlying dementia and i cannot obtain any information" H and P 8 pg.2- "The patient is alert, disoriented due to dementia, not in acute distress" H and P 09/10 pg.3- "Possible acute encephalopathy. If present, this is likely secondary to underlying urinary tract infection" RISK FACTORS Alzheimer's disease- H and P pg.1 Hypertension-H and P pg.1 UTI- H and P pg.3 Acute on chronic respiratory failure with hypoxia-Hospitalist PN 09/11 pg.5 TREATMENTS: IV fluids- APR 14 Ceftriaxone (Rocephin) 2gm IV- APR 14 Vancomycin HCL 1gm IV- APR 14 Cefepime (Maxipime)1 gm IV- APR 14 Correction of electrolyte imbalances (This form is maintained as a part of the permanent medical record) 2014 [employer]. All Rights Reserved Armaan [email or web address] [not provided] MTDD
== END 2018-09-18 17:15 | DRG 689 ==
LOC: ERS 22:04 → SURG B 09-10 00:10 → OBSVTOIN 09-10 18:00
PROVIDERS: ADMIT Hospitalist; ATTEND Hospitalist
DX: N39.0 Urinary tract infection, site not specified (principal); I50.33 Acute on chronic diastolic (congestive) heart failure; J96.21 Acute and chronic respiratory failure with hypoxia; R78.81 Bacteremia; E87.0 Hyperosmolality and hypernatremia; Z66 Do not resuscitate; B95.2 Enterococcus as the cause of diseases classified elsewhere; E78.00 Pure hypercholesterolemia, unspecified; E78.5 Hyperlipidemia, unspecified; G30.9 Alzheimer's disease, unspecified; F02.80 Dementia in other diseases classified elsewhere, unspecified severity, without behavioral disturbance, psychotic disturbance, mood disturbance, and anxiety; F01.50 Vascular dementia, unspecified severity, without behavioral disturbance, psychotic disturbance, mood disturbance, and anxiety; Z16.24 Resistance to multiple antibiotics; F41.9 Anxiety disorder, unspecified; F32.9 Major depressive disorder, single episode, unspecified; I48.0 Paroxysmal atrial fibrillation; J44.9 Chronic obstructive pulmonary disease, unspecified; I11.0 Hypertensive heart disease with heart failure; Z79.01 Long term (current) use of anticoagulants; Z95.1 Presence of aortocoronary bypass graft; Z79.899 Other long term (current) drug therapy; Z88.0 Allergy status to penicillin
CPT/HCPCS: 36415; 51701; 71045; 74177; 80048; 80053; 80202; 81003; 81015; 83605; 85025; 87040; 87077; 87086; 87149; 87186; 94640; 96365; A4353; J0692; J0696; J1200; J1940; J2920; J3370; J3486; J3490; J7620; Q0163; Q9967

== ENCOUNTER 2019-01-20 03:49 | Inpatient (IN) | payer MEDICARE ==
[2019-01-20 04:16] LABS: #Monocytes 0.6 thou/uL (0.11-0.59); #Neutrophils 9.5 thou/uL (1.40-6.50); %Basophils 0.4 % (0.0-1.0); %Lymphocytes 8.8 % (21.0-51.0); %Monocytes 5.4 % (0.0-10.0); %Neutrophils 85.4 % (42.0-75.0); Hemoglobin 12.5 g/dL (12.0-16.0); Mean Corpuscular Hemoglobin 31.5 pg (27.0-31.0); Mean Corpuscular Volume 92.8 fL (78.0-98.0); Mean Platelet Volume 9.6 fL (7.4-10.4); Platelet Count 136 thou/uL (130-400); RBC Distribution Width 13.2 % (11.5-14.5); Red Blood Cell (RBC) Count 3.98 mill/uL (4.20-5.40); White Blood Cell (WBC) Count 11.1 thou/uL (4.8-10.8)
[2019-01-20 04:25] LABS: INR-International Normal Ratio 1.1; PTT 24.6 SEC (22.9-36.1); Prothrombin Time 13.9 SEC (12.0-14.7)
[2019-01-20 04:41] LABS: ALT (SGPT) 49 U/L (8-55); AST (SGOT) 31 U/L (5-34); Albumin 3.1 g/dL (3.4-4.8); Alkaline Phosphatase 58 U/L (40-110); Anion Gap 11 mmol/L (10-20); BUN (Urea Nitrogen) 45 mg/dL (9.8-20.1); Bilirubin, Total 0.7 mg/dL (0.2-1.2); Calc. Creatinine Clearance 0 mL/min (70-130); Calcium 7.8 mg/dL (7.8-10.44); Carbon Dioxide 26 mmol/L (23-31); Chloride 106 mmol/L (98-107); Estimated GFR-MDRD 73; Globulin 2.7 g/dL (2.4-3.5); Glucose 101 mg/dL (83-110); Potassium 5.9 mmol/L (3.5-5.1); Protein, Total 5.8 g/dL (6.0-8.3); Sodium 137 mmol/L (136-145)
[2019-01-20] MEDS ORDERED: Sodium Chloride 0.9% (PF) 10 ML VIAL FS PRN (05:39)
[2019-01-20] MEDS ORDERED: Sodium Chloride 0.9% 1,000 ML IV SCH (05:45)
--- NOTE | 2019-01-20 05:57 | PDOC.EVN ---
Event Note - Event Note Event Note: [id number]
--- NOTE | 2019-01-20 06:05 | PDOC.EVN ---
Event Note - Event Note Event Note: [id number]
[2019-01-20 06:57] VITALS: BMI 28.5
--- NOTE | 2019-01-20 06:57 | HP ---
CHIEF COMPLAINT: GI bleeding. HISTORY OF PRESENT ILLNESS: Ms. Mari is an 88-year-old female with past medical history of paroxysmal AFib, on Eliquis ? cardiac pacemaker, hyperlipidemia, hypertension, Alzheimer disease, dementia, cardiomyopathy, among others, who was brought to the emergency room from care home because of GI bleeding that started prior to arrival. [facility] called reporting the patient was moaning and screaming and had copious amounts of blood rectally. The patient is confused, unable to leave any meaningful conversation. Workup in the emergency room, the patient had a hemoglobin of 12.5. INR is 1.1. BUN is 45, creatinine 0.7, and potassium is 5.9. The patient's vital signs, blood pressure 103/76, pulse is 83. The patient is being admitted to the hospital for further management. PAST MEDICAL HISTORY: As mentioned above in history of present illness. PAST SURGICAL HISTORY: Cardiac pacemaker, other surgical history not available at this time. The patient is unable to give any history. SOCIAL HISTORY: No history of alcohol use or smoking. The patient lives in a care home. FAMILY HISTORY: Unknown. HOME MEDICATIONS: Please see home medication reconciliation form for updated medications. ALLERGIES: PENICILLIN. REVIEW OF SYSTEMS: Unable to obtain because the patient unable to give any history. PHYSICAL EXAMINATION: GENERAL: The patient is awake, confused, pleasant. Does not appear to be in acute distress. VITAL SIGNS: Blood pressure 103/76, pulse is 84, respiratory rate is 18, and temperature 97.2. HEAD AND NECK: Normocephalic, atraumatic. Neck is supple. No JVD. CHEST: Fair bilateral air entry. ABDOMEN: Soft. Bowel sounds present. NEUROLOGIC: The patient is awake, but confused. PSYCH: Unable to assess. RECTAL: Done in the ED and it was described as obvious bright red blood per rectum. ASSESSMENT: 1. Acute gastrointestinal bleeding, lower. 2. Atrial fibrillation, paroxysmal. 3. Alzheimer dementia. 4. Hyperkalemia. 5. Cardiac pacemaker. 6. Hyperlipidemia. 7. Cardiomyopathy ? PLAN: 1. Admit. 2. Tele monitoring. 3. Monitor her hemoglobin and hematocrit. 4. IV proton pump inhibitor. 5. Consult GI in a.m. for evaluation and further recommendations. 6. Keep the patient n.p.o. for now. 7. IV fluids. 8. Hold anticoagulants and antiplatelets. 9. Reconcile home medications. 10. DVT prophylaxis, SCDs. 11. Expected length of stay 2 midnights or more. Job ID: [id number]
[2019-01-20] MEDS ORDERED: ALPRAZolam 0.5 MG TAB PO PRN (07:23)
[2019-01-20] MEDS ORDERED: Acetaminophen 325 MG TAB PO PRN (07:23)
[2019-01-20] MEDS ORDERED: Loperamide HCl 2 MG CAP PO PRN (07:24)
[2019-01-20] MEDS ORDERED: Guaifenesin DM 100-10/5 ML UDCUP PO PRN (07:24)
[2019-01-20] MEDS ORDERED: Ondansetron ODT 4 MG TAB PO PRN (07:24)
[2019-01-20] MEDS ORDERED: Benzonatate 100 MG CAP PO PRN (07:25)
[2019-01-20] MEDS ORDERED: Docusate 100 MG CAP PO PRN (07:25)
[2019-01-20] MEDS ORDERED: diphenhydrAMINE 25 MG CAP PO PRN (07:25)
[2019-01-20] MEDS ORDERED: Labetalol HCl 100 MG/20 ML VIAL SLOW IVP PRN (07:25)
[2019-01-20] MEDS ORDERED: Melatonin 3 MG TAB PO PRN (07:25)
[2019-01-20] MEDS ORDERED: predniSONE 20 MG TAB PO SCH (07:30)
--- NOTE | 2019-01-20 08:23 | RAD ---
EXAM: Chest one view: HISTORY: GI bleed rectal bleeding COMPARISON: 09/09/2018 FINDINGS: Left hemidiaphragm elevation. Left ICD. Heart size: Within normal limits. Lungs: Clear of acute process. No evidence for confluent pneumonia, pleural effusion, acute edema, or pneumothorax, or other signifi cant acute process. IMPRESSION: No significant acute intrathoracic disease.
--- NOTE | 2019-01-20 09:22 | CT ---
PRELIMINARY REPORT/DIRECT RADIOLOGY/EMERGENCY AFTER HOURS PROCEDURE: EXAM: CT Abdomen and Pelvis with Intravenous Contrast CLINICAL HISTORY: ER 10... 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 EMS states [facility] called re porting pt was moaning and screaming and had copious amounts of blood rectally TECHNIQUE: Axial computed tomography images of the abdomen and pelvis with intravenous contrast. CONTRAST: With; ISO 370, 70ML COMPARISON: None provided. FINDINGS: LUNG BASES: No basilar airspace consolidation or pleural effusion. LIVER: Unremarkable. GALLBLADDER AND BILE DUCTS: Unremarkable. No calcified stone. No ductal dilation. PANCREAS: Unremarkable. SPLEEN: Unremarkable. ADRENAL GLANDS: Unremarkable. KIDNEYS, URETERS, AND BLADDER: Unremarkable. No hydronephrosis or nephrolithiasis. No ureteral or rosalie dder calculi. Bilateral renal cysts. STOMACH AND BOWEL: No obstruction. No wall thickening. No CT evidence of colitis or acute diverticuli tis. APPENDIX: No CT evidence for appendicitis. PERITONEUM: No free fluid. No free air. LYMPH NODES: No lymphadenopathy. REPRODUCTIVE: Unremarkable as visualized. VASCULATURE: No aortic aneurysm. BONES: No fracture or suspicious osseous abnormality. Old left pubic ramus fracture. Degenerative c hanges of the lumbar spine is seen. ABDOMINAL WALL AND SOFT TISSUES: Anterior abdominal wall hernia containing normal structure: IMPRESSION: No acute intra-abdominal or pelvic abnormality. Findings as described above. ELECTRONICALLY SIGNED BY: Armani Lockwood MD Jan 20, 2019 5:17:51 AM VOCATIONAL AUTO BODY INSTRUCTOR FINAL REPORT ABDOMEN AND PELVIC CT SCAN WITH IV CONTRAST: EMERGENCY AFTER HOURS STUDY TIME: 5:05 AM. DATE: 01/20/2019. Bilateral renal cysts. No hydronephrosis. No significant acute process. Little change from prior e xam, 09/17/2018. This report is in agreement with the preliminary report. POS: [facility]
[2019-01-20] MEDS ORDERED: Iopamidol 370 76% 100 ML VIAL ONE (11:03)
--- NOTE | 2019-01-20 12:19 | CON ---
DATE OF CONSULTATION: 01/20/2019 REQUESTING PHYSICIAN: Israel Lee MD REASON FOR CONSULTATION: GI bleeding. HISTORY OF PRESENT ILLNESS: Cinthia Mari is an 88-year-old woman with a history of Alzheimer's dementia as well as atrial fibrillation. Some of the documentation suggests that she is on Eliquis, but I do not see that she is on that medication per retirement notes. At any rate, she has a pacemaker and evidently diagnosis of cardiomyopathy. Looking back, she has a history of right-sided colon cancer diagnosed in 2006 and underwent right hemicolectomy that year. Followup colonoscopies were in 2007, 2009, and lastly in 2012 showing left-sided diverticulosis and a small sigmoid polyp, which was ablated at that time. The patient is a resident of a retirement, DNR status, and actually nursing brought it to my attention as well as after speaking with the patient's granddaughter, the patient is on hospice care. Regardless, evidently last night, she had a large amount of bright red blood per rectum and was sent from her nursing facility to the hospital for admission. She has been hemodynamically stable. Hemoglobin is 12.5. BUN 45, creatinine 0.75. She had a CT scan showing no acute processes. She has not had any more passage of blood since arrival here. She is not able to really give any good history about symptoms. She does seem to indicate there is some discomfort to the lower abdomen. REVIEW OF SYSTEMS: Unable to obtain full review of systems due to the patient's underlying dementia and mental status. PAST MEDICAL HISTORY: Alzheimer's dementia, pacemaker placement, atrial fibrillation, cardiomyopathy, hypertension, hyperlipidemia, right-sided colon cancer status post right hemicolectomy in 2006, left-sided diverticulosis with last colonoscopy in 2012. ALLERGIES: PENICILLIN. OUTPATIENT MEDICATIONS: Aspirin 325 mg daily, Cardizem, alprazolam, calcium/vitamin D, Eliquis, the patient is possibly on this per some documentation, though not per retirement medication notes. SOCIAL HISTORY: The patient resides at a nursing facility. She is actually hospice status. No smoking or alcohol use. FAMILY HISTORY: Unknown. PHYSICAL EXAMINATION: VITAL SIGNS: Temperature 98.2, pulse 96, blood pressure 135/67, and oxygen saturation 95% on room air. GENERAL: Elderly 88-year-old woman, frail, lying in bed, in mild distress. SKIN: No jaundice. No rashes were palpable. EYES: No scleral icterus. Extraocular movements intact. ENT: Mucous membranes moist. No oral lesions. LYMPH: No submandibular or supraclavicular lymphadenopathy. THYROID: Nontender to palpation. HEART: Regular rate and rhythm. LUNGS: Clear to auscultation bilaterally. ABDOMEN: Bowel sounds are present. Soft. She does seem to have some tenderness to palpation in the lower abdomen, but no guarding or rebound tenderness. EXTREMITIES: 1 to 2+ bilateral lower extremity pitting edema. MENTAL: She is disoriented. She is not able to answer all questions appropriately or follow commands. NEUROLOGIC: Cranial nerves II through XII intact bilaterally. LABORATORY STUDIES: Hemoglobin 12.5, WBC 11.1, and platelets 136. Sodium 137, potassium 5.9, BUN 45, and creatinine 0.75. Troponin negative. INR 1.1. Total bilirubin 0.7, alkaline phosphatase 58, AST 31, ALT 49, and albumin 3.1. IMAGING STUDIES: Chest x-ray showed no acute processes. CT of the abdomen and pelvis showed no acute processes. She has bilateral renal cysts. Normal-appearing liver, spleen, pancreas, gallbladder, bile ducts, and bowel. ASSESSMENT AND PLAN: 1. Acute gastrointestinal bleeding, likely lower gastrointestinal source. 2. History of colon cancer, status post right hemicolectomy back in 2006. The patient's clinical presentation does seem most consistent with lower gastrointestinal bleeding source, though I do note the elevated BUN to creatinine ratio. Initial hemoglobin is satisfactory at 12.5 and she has remained hemodynamically stable. Importantly, the patient is hospice status, and I confirmed this with the patient's daughter, Ara Oro, over the phone this morning. The patient's family is not wanting to pursue any endoscopic investigation or other aggressive interventions or measures. I think this is certainly reasonable. I am not sure if the patient is actually on Eliquis, but if so, I would just discontinue this medication. My understanding is that transfer back to the nursing facility is planned for later today. GI will sign off, but please call anytime with questions or concerns. Job ID: [id number]
[2019-01-20] MEDS: Calcium Carbonate + Vit D 1 TAB PO SCH (13:14)
[2019-01-20] MEDS: Pantoprazole 40 MG VIAL IVP SCH ×2 (13:14→20:38)
[2019-01-20] MEDS: Diltiazem HCl CD 300 mg Capsule PO SCH (13:14)
[2019-01-20] MEDS: Magnesium Oxide 400 MG TAB PO SCH (13:14)
--- NOTE | 2019-01-20 14:17 | PDOC.EVN ---
Event Note - Event Note Event Note: Discuss case with patient's medical power of associate attorney Ara at [phone]. Power of associate attorney tells me that the patient is on hospice, do not resuscitate and do not intubate is in place. They're not interested in any aggressive or invasive procedures or treatments. Discussed all laboratory data and imaging results. Time was given for questions, all questions answered in detail. Unfortunately I believe that this nursing facility is not up to the task of caring for hospice patient, and inappropriately sent her back to the emergency department for minor bleeding. Patient's hemoglobin not significantly decreased from prior lab studies and the patient is not even anemic. Case management consultation, out of care consultation, and hospice agency consultation requested for further plan of care. Discussed patient with Dr Ji with GI who agrees to less invasive treatment, no further procedures per family request.
[2019-01-20] MEDS ORDERED: Midazolam HCl 2 mg/2 ml Vial SLOW IVP PRN (17:21)
[2019-01-20] MEDS: Lorazepam 2 MG/ML VIAL SLOW IVP PRN (20:41)
[2019-01-21] MEDS: Diltiazem HCl CD 300 mg Capsule PO SCH (09:00)
[2019-01-21] MEDS ORDERED: FLU VACC TS2019-20(65YR UP)/PF 180 MCG/0.5 ML SYRINGE IM ONE (09:00)
[2019-01-21] MEDS: Pantoprazole 40 MG VIAL IVP SCH ×2 (09:09→20:23)
[2019-01-21] MEDS: Calcium Carbonate + Vit D 1 TAB PO SCH (09:09)
[2019-01-21] MEDS: Magnesium Oxide 400 MG TAB PO SCH (09:09)
[2019-01-21] MEDS: Morphine 4 MG/ML VIAL SLOW IVP PRN ×2 (09:22→17:33)
[2019-01-21] MEDS: Lorazepam 2 MG/ML VIAL SLOW IVP PRN ×2 (09:30→17:56)
--- NOTE | 2019-01-21 13:22 | PDOC.HOSPP ---
- Subjective Subjective: Seen and examined. The patient remains visibly uncomfortable and agitated. Appears to be in pain and distress. Will increase fentanyl patch. Discuss case with RN and recommended liberal use of Ativan, versed, and morphine to keep the patient comfortable. Patient with blood in stool persist. Patient on comfort care only an daughter is not interested in aggressive interventions or procedures. - Objective Vital Signs & Weight: Vital Signs (12 hours) Temp Pulse Resp BP Pulse Ox 01/21/19 12:00 97/53 L 01/21/19 08:20 97.9 F 85 16 95 01/21/19 08:00 95 Weight Weight 166 lb 9.6 oz I&O: 01/20/19 01/21/19 01/22/19 06:59 06:59 06:59 Intake Total 60 Balance 60 Result Diagrams: 01/20/19 06:22 01/20/19 04:00 Radiology Reviewed by me: Yes Hospitalist ROS - Review of Systems All other systems reviewed; all pertinent +/- noted in HPI/Subj - Medication Medications: Active Medications Generic Name Dose Route Start Last Admin Trade Name Freq PRN Reason Stop Dose Admin Alprazolam 0.5 mg 01/20/19 07:23 01/20/19 21:10 Xanax PO 0.5 mg BIDPRN PRN Administration Anxiety/Agitation Calcium/Vitamin D 1 tab 01/20/19 09:00 01/21/19 09:09 Caltrate 600 + Vit D PO 1 tab DAILY ELINA Administration Diltiazem HCl 300 mg 01/20/19 09:00 01/20/19 13:14 Cardizem Cd PO Not Given DAILY ELINA Lorazepam 0.5 mg 01/20/19 17:20 01/20/19 20:41 Ativan SLOW IVP 0.5 mg Q2H PRN Administration Anxiety/Agitation Magnesium Oxide 400 mg 01/20/19 09:00 01/21/19 09:09 Magnesium Oxide PO 400 mg DAILY ELINA Administration Morphine Sulfate 4 mg 01/20/19 17:21 01/21/19 09:22 Morphine SLOW IVP 4 mg Q4H PRN Administration Moderate to Severe Pain (6-10) Pantoprazole Sodium 40 mg 01/20/19 09:00 01/21/19 09:09 Protonix IVP 40 mg BID ELINA Administration - Exam General Appearance: NAD Eye: PERRL ENT: normocephalic atraumatic, moist mucosa Neck: supple, symmetric, no lymphadenopathy Heart: no murmur, no gallops, no rubs Respiratory: CTAB, no wheezes, no rales, no ronchi Gastrointestinal: soft, non-tender, no guarding, no rigidity Extremities: no clubbing, no edema Skin: no lesions Neurological: cranial nerve grossly intact, no focal deficits Musculoskeletal: generalized weakness Psychiatric: not oriented. negative: A&O x 3 Hosp A/P (1) GI bleeding Code(s): K92.2 - GASTROINTESTINAL HEMORRHAGE, UNSPECIFIED Status: Acute (2) Acute and chronic respiratory failure with hypoxia Code(s): J96.21 - ACUTE AND CHRONIC RESPIRATORY FAILURE WITH HYPOXIA Status: Acute (3) Alzheimer's dementia Code(s): G30.9 - ALZHEIMER'S DISEASE, UNSPECIFIED; F02.80 - DEMENTIA IN OTH DISEASES CLASSD ELSWHR W/O BEHAVRL DISTURB Status: Chronic (4) Anxiety and depression Code(s): F41.9 - ANXIETY DISORDER, UNSPECIFIED; F32.9 - MAJOR DEPRESSIVE DISORDER, SINGLE EPISODE, UNSPECIFIED Status: Chronic (5) Dyslipidemia Code(s): E78.5 - HYPERLIPIDEMIA, UNSPECIFIED Status: Chronic (6) Hypertension Code(s): I10 - ESSENTIAL (PRIMARY) HYPERTENSION Status: Chronic Qualifiers: Hypertension type: essential hypertension Qualified Code(s): I10 - Essential (primary) hypertension (7) Paroxysmal A-fib Code(s): I48.0 - PAROXYSMAL ATRIAL FIBRILLATION Status: Chronic - Plan Plan: medical unit Palliative care consultation, recommendations appreciated hospice external agency consultation, recommendations pending appropriate for inpatient hospice, pain is currently uncontrolled gastroenterology consultation, recommendations appreciated patient's grand daughterCINDY wishes to have no further invasive procedures are surgical interventions. She wishes the patient only to be kept comfortable comfort care only pain control increase fentanyl patch to 25 mcg Morphine IV as needed Ativan IV as needed versed IV as needed vital signs Q shift only no more lab draws no more invasive procedures are testing
[2019-01-22] MEDS: Morphine 4 MG/ML VIAL SLOW IVP PRN (08:02)
[2019-01-22 08:29] VITALS: BP 120/65; TEMP 97.4
[2019-01-22] MEDS: Magnesium Oxide 400 MG TAB PO SCH (09:00)
[2019-01-22] MEDS: Calcium Carbonate + Vit D 1 TAB PO SCH (09:00)
[2019-01-22] MEDS: Diltiazem HCl CD 300 mg Capsule PO SCH (09:00)
[2019-01-22] MEDS: Pantoprazole 40 MG VIAL IVP SCH (09:00)
[2019-01-22] MEDS ORDERED: Lorazepam 2 MG/ML VIAL SLOW IVP PRN (09:37)
--- NOTE | 2019-01-23 09:05 | PQF ---
OSWALD SMITH MOHAMED S MD [id number] CLINICAL DOCUMENTATION CLARIFICATION FORM: POST DISCHARGE Addendum to original discharge summary date: ____ Late entry note date: __ DATE:01/23/2019 ATTN:ISRAEL JIMENEZ MD Please exercise your independent, professional judgment in responding to the clarification form. Clinical indicators are provided on the bottom of this form for your review Please check appropriate box(s) to clarify if the following diagnosis has been ruled in or ruled out: Acute and chronic respiratory failure with hypoxia [ ] Ruled in diagnosis [ ] Continue to treat [ ] Resolved [ ] Ruled out diagnosis [ ] Cannot rule out diagnosis [ ] Other diagnosis [ ] Unable to determine For continuity of documentation, please document condition throughout progress notes and discharge summary. Thank You. CLINICAL INDICATORS - SIGNS / SYMPTOMS / LABS [id number] in ED on 01/20 by Valencia Garrison Lungs:Clear to auscultation bilaterally-Documented in Consult on 01/20 by Gilles Ji Acute and chronic respiratory failure with hypoxia-Documented in Hospitalist PN on 01/21 by Ulysses Wallace RISK FACTORS Acute gastrointestinal bleeding -Documented in H&P on 01/20 by Israel Lee Atrial fibrillation-Documented in H&P on 01/20 by Israel Lee TREATMENTS Oxygen delivery 2 L nasal cannula-Documented in Clinical panels (This form is maintained as a part of the permanent medical record) 2014 [employer]. All Rights Reserved [email or web address] [not provided] MTDD
--- NOTE | 2019-01-23 10:04 | DIS ---
DATE OF ADMISSION: 01/20/2019 DATE OF DISCHARGE: 01/22/2019 DISCHARGE DISPOSITION: Return to intermediate with hospice. FOLLOWUP: Follow up with Dr. Amaya in 1 week. DISCHARGE MEDICATIONS: Protonix 40 mg b.i.d. All other home medications were left unchanged. INPATIENT PIZZA MAKER: Gastroenterology, Dr. Ji. CODE STATUS: Do not resuscitate. The patient was seen and examined on the day of discharge. BRIEF HOSPITAL COURSE: The patient is an 88-year-old female residing in long- term care with dementia, presented to the hospital on 20 January 2019 with hematochezia. The patient was reported to be moaning and screaming and had copious amount of blood rectally. Her initial vital signs in the emergency room showed temperature 97.2 with respirations of 20, pulse rate of 105, blood pressure of 117/73, with O2 saturation of 100% on room air. The patient was monitored on the telemetry unit due to rapid ventricular rate. She also had potassium of 5.9 with BUN of 45, creatinine of 0.75. The family declined any form of interventions including blood work. For this reason, no blood work was done after admission. She continued to have intermittent blood in stool. The family decided on hospice at the long-term facility. Please note that I assumed the care of this patient on the day of discharge. FINAL DIAGNOSES: 1. Gastrointestinal bleeding, exact etiology unclear. The family declined any form of intervention. 2. History of colon cancer, status post right hemicolectomy in 2006. 3. Alzheimer dementia. 4. Atrial fibrillation with rapid ventricular rate on admission. 5. Hyperlipidemia. 6. Hypertension. 7. Hyperkalemia on admission. 8. Chronic kidney disease, stage 2. TIME SPENT: Total time coordinating the discharge of this patient was 33 minutes. Job ID: [id number] MTDD
== END 2019-01-22 12:40 | DRG 378 ==
LOC: ERS 03:49 → 2NO 05:38 → ONC 19:38
PROVIDERS: ADMIT Internal Medicine; ATTEND Internal Medicine
DX: K92.2 Gastrointestinal hemorrhage, unspecified (principal); I42.9 Cardiomyopathy, unspecified; E78.5 Hyperlipidemia, unspecified; Z95.0 Presence of cardiac pacemaker; G30.9 Alzheimer's disease, unspecified; F02.80 Dementia in other diseases classified elsewhere, unspecified severity, without behavioral disturbance, psychotic disturbance, mood disturbance, and anxiety; I10 Essential (primary) hypertension; I48.0 Paroxysmal atrial fibrillation; E87.5 Hyperkalemia; Z90.49 Acquired absence of other specified parts of digestive tract; Z85.038 Personal history of other malignant neoplasm of large intestine; F41.9 Anxiety disorder, unspecified; F32.9 Major depressive disorder, single episode, unspecified; Z66 Do not resuscitate
CPT/HCPCS: 36415; 71045; 74177; 80053; 84484; 85025; 85610; 85730; 86850; 86900; 86901; 93005; C9113; J2060; J2270; Q9967